=== PATIENT | female | born 1980 | race Caucasian/White ===

== ENCOUNTER 2021-04-06 14:29 | Observation (INO) ==
[2021-04-06] MEDS ORDERED: THIAMINE 200 MG/2 ML VIAL IV STA (15:27)
[2021-04-06 15:50] LABS: Basophils # 0.1 10*3/uL (0.0-0.2); Basophils % 0.8 % (0.0-0.8); Eosinophils % 0.2 % (0.00-10.9); Hematocrit 34.9 VOL% (35.7-47.0); Hemoglobin 11.6 GM/DL (12.0-16.0); Immature Granulocytes % 0.5 %; Immature Granulocytes Absolute 0.05 #; Lymphocytes # 3.4 10*3/uL (1.4-4.0); Lymphocytes % 33.9 % (21.3-54.2); Mean Corpuscular HGB Conc 33.2 GM/DL (32-36); Mean Corpuscular Volume 105.8 FL (87-102); Mean Platelet Volume 10.7 FL (9.6-12.0); Monocytes % 11.4 % (1.7-12.7); Neutrophils % 53.2 % (38.7-73.9); Platelet Count 368 T/CUMM (130-400); Red Cell Distribution Width 16.8 % (9.3-17.3); White Blood Count 9.9 T/CUMM (4-12)
[2021-04-06] MEDS ORDERED: SODIUM CHLORIDE 0.9% 1,000 ML IV STA ×2 (15:50→20:06)
[2021-04-06 16:03] LABS: INR 1.2; Partial Thromboplastin Time 25.5 SECS (23.9-33.8)
[2021-04-06 16:14] LABS: Folate 3.92 NG/ML (5.38-24.0); Vitamin B12 > 2000 PG/ML (211-911)
[2021-04-06 16:18] LABS: Alanine Aminotransferase 76 U/L (13-56); Albumin 1.8 G/DL (3.4-5.0); Alkaline Phosphatase 293 U/L (45-117); Aspartate Amino Transferase 259 U/L (0-37); Blood Urea Nitrogen 7 MG/DL (7-18); Calcium 8.1 MG/DL (8.5-10.1); Carbon Dioxide 27 MMOL/L (21-32); Estimated Glom Filtration Rate 84 ML/MIN; Glucose 98 MG/DL (74-106); Osmolality,Calculated 272.7 MOS/KG (273-304); Potassium 3.3 MMOL/L (3.5-5.1); Sodium 138 MMOL/L (136-145); Total Protein 5.8 G/DL (6.4-8.2)
[2021-04-06 16:22] LABS: Lactic Acid 4.3 MMOL/L (0.4-2.0)
[2021-04-06] MEDS ORDERED: MORPHINE 4 MG/1 ML VIAL IV STA (17:36)
[2021-04-06] MEDS ORDERED: ONDANSETRON 4 MG/2 ML VIAL IV ONE (17:36)
[2021-04-06] MEDS ORDERED: KETOROLAC 30 MG/1 ML VIAL IV STA (19:30)
[2021-04-06] MEDS ORDERED: GLUCAGON 1 MG VIAL IM PRN (20:08)
[2021-04-06] MEDS ORDERED: DEXTROSE 50% 25 GM/50 ML VIAL IV PRN (20:08)
[2021-04-06] MEDS ORDERED: SODIUM CHLORIDE 0.9% 500 ML IV STA (20:14)
[2021-04-06] MEDS ORDERED: MAGNESIUM SULF RIDER 2 GM/50 ML PREMIX IV ONE (20:16)
[2021-04-06] MEDS ORDERED: POTASSIUM CHLORIDE RIDER 10 MEQ in PREMIX 1 EACH IV PRN (20:16)
[2021-04-06] MEDS ORDERED: THIAMINE INJ 100 MG, FOLIC ACID INJ 1 MG, MAGNESIUM SULF INJ 2 GM, MULTIVITAMIN INJ 10 ... IV ONE (20:23)
[2021-04-06 21:36] LABS: Hepatitis B Core IgM Quant 0.09 Index; Hepatitis B Surface Ag Quant < 0.10 Index; Hepatitis B Surface Ag Result Non-Reactive (NonReactive); Hepatitis C Virus Ab Quant 0.12 Index; Hepatitis C Virus Ab Result Non-Reactive (NonReactive)
[2021-04-07 01:28] LABS: Barbiturates Screen,Urine Negative (Negative); Benzodiazepines Screen,Urine Negative (Negative); Cannabinoid Screen,Urine Positive (Negative); Opiate Screen,Urine Negative (Negative); Phencyclidine Screen,Urine Negative (Negative)
[2021-04-07 02:04] LABS: Bilirubin,Urine Negative (Negative); Blood, Urine Negative (Negative); Glucose,Urine (UA) Negative (Negative); Ketones,Urine Negative (Negative); Nitrite,Urine Negative (Negative); Protein,Urine Negative; RBC,Urine 11 /HPF (0-4); Squamous Epithelial Cell,Urine Occasional /HPF (0-10); Urine Appearance CLEAR (Clear); Urine Color Amber (Yellow)
[2021-04-07 02:12] LABS: Urine Specific Gravity > 1.035 (1.001-1.035)
[2021-04-07 04:23] LABS: Basophils # 0.1 10*3/uL (0.0-0.2); Basophils % 1.3 % (0.0-0.8); Eosinophils # 0.1 10*3/uL (0.0-0.87); Eosinophils % 0.9 % (0.00-10.9); Hematocrit 27.6 VOL% (35.7-47.0); Hemoglobin 9.1 GM/DL (12.0-16.0); Immature Granulocytes % 0.3 %; Immature Granulocytes Absolute 0.02 #; Lymphocytes # 2.3 10*3/uL (1.4-4.0); Lymphocytes % 34.1 % (21.3-54.2); Mean Corpuscular Volume 107.4 FL (87-102); Mean Platelet Volume 10.5 FL (9.6-12.0); Monocytes % 9.3 % (1.7-12.7); Neutrophils % 54.1 % (38.7-73.9); Platelet Count 282 T/CUMM (130-400); Red Blood Count 2.57 MC/CUMM (3.8-5.5); Red Cell Distribution Width 16.8 % (9.3-17.3); White Blood Count 6.7 T/CUMM (4-12)
[2021-04-07 04:51] LABS: Albumin 1.4 G/DL (3.4-5.0); Bilirubin,Total 1.3 MG/DL (0.2-1.0); Osmolality,Calculated 275.4 MOS/KG (273-304); Total Protein 4.5 G/DL (6.4-8.2)
[2021-04-07 04:53] LABS: Eosinophils 2 % (0-10); Lymphocytes 27 % (20-55); Segmented Neutrophils 62 % (50-85); Total Cells Counted 100
[2021-04-07 04:54] LABS: Hypochromasia 1+; Polychromasia Slight
[2021-04-07 04:56] LABS: Stomatocytes Slight
[2021-04-07 04:57] LABS: Microcytosis 1+; Platelet Estimate Normal
[2021-04-07] MEDS ORDERED: POTASSIUM CHLORIDE 20 MEQ PACK ONE (07:06)
[2021-04-07] MEDS ORDERED: POTASSIUM CHLORIDE INJ 50 MEQ in SODIUM CHLORIDE 0.9% 500 ML IV ONE (10:00)
[2021-04-07] MEDS: ENOXAPARIN 40 MG/0.4 ML SYRINGE SUBCUT SCH (10:24)
[2021-04-07] MEDS: FOLIC ACID INJ 1 MG in SYRINGE 1 EACH IV SCH (10:24)
[2021-04-07] MEDS: PANTOPRAZOLE 40 MG TABLET PO SCH (10:25)
[2021-04-07] MEDS: SODIUM CHLORIDE 0.9% 1,000 ML IV SCH ×2 (10:25)
[2021-04-07] MEDS ORDERED: POTASSIUM CHLORIDE 20 MEQ/15 ML UDCUP PO ONE (11:00)
[2021-04-07] MEDS: traMADol 50 MG TABLET PO PRN (12:18)
[2021-04-07] MEDS: THIAMINE 100 MG TABLET PO SCH (16:47)
[2021-04-07] MEDS ORDERED: LORazepam 1 MG TABLET PO ONE (16:58)
[2021-04-08] MEDS: SODIUM CHLORIDE 0.9% 1,000 ML IV SCH ×3 (00:56→15:13)
[2021-04-08] MEDS: traMADol 50 MG TABLET PO PRN ×3 (05:17→21:02)
[2021-04-08 06:02] LABS: Basophils # 0.1 10*3/uL (0.0-0.2); Basophils % 1.8 % (0.0-0.8); Eosinophils # 0.1 10*3/uL (0.0-0.87); Eosinophils % 1.8 % (0.00-10.9); Hematocrit 29.9 VOL% (35.7-47.0); Hemoglobin 9.4 GM/DL (12.0-16.0); Immature Granulocytes % 0.6 %; Immature Granulocytes Absolute 0.03 #; Mean Corpuscular HGB Conc 31.4 GM/DL (32-36); Mean Corpuscular Volume 112.4 FL (87-102); Mean Platelet Volume 10.8 FL (9.6-12.0); Monocytes % 10.1 % (1.7-12.7); NRBC # 0.02 10*3/uL; Neutrophils % 46.7 % (38.7-73.9); Platelet Count 296 T/CUMM (130-400); Red Blood Count 2.66 MC/CUMM (3.8-5.5); White Blood Count 5.1 T/CUMM (4-12)
[2021-04-08 06:26] LABS: Eosinophils 2 % (0-10); Hypochromasia 1+; Lymphocytes 38 % (20-55); Microcytosis 1+; Platelet Estimate Adequate; Segmented Neutrophils 53 % (50-85); Total Cells Counted 100
[2021-04-08 06:38] LABS: Alanine Aminotransferase 66 U/L (13-56); Albumin 1.2 G/DL (3.4-5.0); Alkaline Phosphatase 234 U/L (45-117); Aspartate Amino Transferase 217 U/L (0-37); Blood Urea Nitrogen 5 MG/DL (7-18); Calcium 7.1 MG/DL (8.5-10.1); Carbon Dioxide 24 MMOL/L (21-32); Estimated Glom Filtration Rate 140 ML/MIN; Glucose 62 MG/DL (74-106); HDL Cholesterol < 10 MG/DL (40-60); Osmolality,Calculated 277.1 MOS/KG (273-304); Potassium 3.9 MMOL/L (3.5-5.1); Sodium 142 MMOL/L (136-145); Total Protein 4.6 G/DL (6.4-8.2); Triglycerides 124 MG/DL (2-150); VLDL CHOLESTEROL 24.8 MG/DL
[2021-04-08 06:42] LABS: Troponin I < 0.015 NG/ML (0.00-0.045)
[2021-04-08] MEDS: FOLIC ACID INJ 1 MG in SYRINGE 1 EACH IV SCH (09:25)
[2021-04-08] MEDS: MULTIVITAMIN (BEROCCA) TABLET PO SCH (09:25)
[2021-04-08] MEDS: THIAMINE 100 MG TABLET PO SCH (09:25)
[2021-04-08] MEDS: PANTOPRAZOLE 40 MG TABLET PO SCH (09:25)
[2021-04-08] MEDS: ENOXAPARIN 40 MG/0.4 ML SYRINGE SUBCUT SCH (09:25)
[2021-04-08] MEDS: ONDANSETRON 4 MG/2 ML VIAL IV PRN (17:42)
[2021-04-09] MEDS: LORazepam 2 MG/1 ML VIAL IV PRN (02:09)
[2021-04-09 08:06] LABS: Alanine Aminotransferase 64 U/L (13-56); Albumin 1.3 G/DL (3.4-5.0); Alkaline Phosphatase 231 U/L (45-117); Aspartate Amino Transferase 191 U/L (0-37); Blood Urea Nitrogen 4 MG/DL (7-18); Calcium 7.5 MG/DL (8.5-10.1); Carbon Dioxide 24 MMOL/L (21-32); Estimated Glom Filtration Rate 154 ML/MIN; Glucose 54 MG/DL (74-106); Osmolality,Calculated 273.4 MOS/KG (273-304); Potassium 3.8 MMOL/L (3.5-5.1); Sodium 140 MMOL/L (136-145); Total Protein 4.5 G/DL (6.4-8.2)
[2021-04-09] MEDS: FOLIC ACID 1 MG TABLET PO SCH (09:27)
[2021-04-09] MEDS: MULTIVITAMIN (BEROCCA) TABLET PO SCH (09:27)
[2021-04-09] MEDS: THIAMINE 100 MG TABLET PO SCH (09:27)
[2021-04-09] MEDS: PANTOPRAZOLE 40 MG TABLET PO SCH (09:28)
[2021-04-09] MEDS: SODIUM CHLORIDE 0.9% 1,000 ML IV SCH ×4 (09:30→22:37)
[2021-04-09] MEDS: ENOXAPARIN 40 MG/0.4 ML SYRINGE SUBCUT SCH (10:45)
[2021-04-09] MEDS: traMADol 50 MG TABLET PO PRN ×2 (11:34→20:12)
[2021-04-09] MEDS: ONDANSETRON 4 MG/2 ML VIAL IV PRN ×2 (13:42→18:19)
[2021-04-10 05:41] LABS: Alanine Aminotransferase 61 U/L (13-56); Albumin 1.3 G/DL (3.4-5.0); Alkaline Phosphatase 240 U/L (45-117); Aspartate Amino Transferase 161 U/L (0-37); Blood Urea Nitrogen 4 MG/DL (7-18); Calcium 7.5 MG/DL (8.5-10.1); Carbon Dioxide 25 MMOL/L (21-32); Estimated Glom Filtration Rate 154 ML/MIN; Glucose 60 MG/DL (74-106); Osmolality,Calculated 277.1 MOS/KG (273-304); Potassium 4.3 MMOL/L (3.5-5.1); Sodium 142 MMOL/L (136-145); Total Protein 4.6 G/DL (6.4-8.2)
[2021-04-10] MEDS: SODIUM CHLORIDE 0.9% 1,000 ML IV SCH ×3 (06:00→20:22)
[2021-04-10] MEDS: FOLIC ACID 1 MG TABLET PO SCH (08:21)
[2021-04-10] MEDS: MULTIVITAMIN (BEROCCA) TABLET PO SCH (08:21)
[2021-04-10] MEDS: THIAMINE 100 MG TABLET PO SCH (08:21)
[2021-04-10] MEDS: PANTOPRAZOLE 40 MG TABLET PO SCH (08:21)
[2021-04-10] MEDS: traMADol 50 MG TABLET PO PRN ×2 (08:22→20:56)
[2021-04-10] MEDS: ENOXAPARIN 40 MG/0.4 ML SYRINGE SUBCUT SCH (08:22)
[2021-04-10] MEDS: LORazepam 2 MG/1 ML VIAL IV PRN ×2 (10:53→20:22)
[2021-04-10] MEDS: ONDANSETRON 4 MG/2 ML VIAL IV PRN (17:49)
[2021-04-11] MEDS: SODIUM CHLORIDE 0.9% 1,000 ML IV SCH ×2 (04:22→16:07)
[2021-04-11 06:00] LABS: Alanine Aminotransferase 60 U/L (13-56); Albumin 1.3 G/DL (3.4-5.0); Alkaline Phosphatase 235 U/L (45-117); Aspartate Amino Transferase 133 U/L (0-37); Blood Urea Nitrogen 3 MG/DL (7-18); Calcium 7.9 MG/DL (8.5-10.1); Carbon Dioxide 26 MMOL/L (21-32); Estimated Glom Filtration Rate 151 ML/MIN; Glucose 63 MG/DL (74-106); Osmolality,Calculated 275.3 MOS/KG (273-304); Potassium 4.5 MMOL/L (3.5-5.1); Sodium 141 MMOL/L (136-145); Total Protein 4.9 G/DL (6.4-8.2)
[2021-04-11] MEDS: PANTOPRAZOLE 40 MG TABLET PO SCH (08:21)
[2021-04-11] MEDS: THIAMINE 100 MG TABLET PO SCH (08:21)
[2021-04-11] MEDS: FOLIC ACID 1 MG TABLET PO SCH (08:21)
[2021-04-11] MEDS: ENOXAPARIN 40 MG/0.4 ML SYRINGE SUBCUT SCH (08:21)
[2021-04-11] MEDS: traMADol 50 MG TABLET PO PRN ×2 (08:22→14:41)
[2021-04-11] MEDS ORDERED: MAGNESIUM SULF RIDER 2 GM/50 ML PREMIX IV ONE (09:00)
[2021-04-11] MEDS: MULTIVITAMIN (BEROCCA) TABLET PO SCH (09:12)
[2021-04-11] MEDS ORDERED: CALCIUM GLUCONATE 1,000 MG in SODIUM CHLORIDE 0.9% 100 ML IV ONE (11:00)
[2021-04-11] MEDS: LORazepam 2 MG/1 ML VIAL IV PRN (15:18)
[2021-04-12 01:06] VITALS: BP 136/84
== END 2021-04-11 22:13 | disposition home or self-care (01) ==
LOC: N.EDINP 14:29 → N.ED 14:29 → SUATTDRO 20:08 → N.5E 04-07 08:08
PROVIDERS: ADMIT Internal Medicine; ATTEND Internal Medicine

== ENCOUNTER 2021-04-23 22:04 | Inpatient (IN) ==
[2021-04-23] MEDS ORDERED: ONDANSETRON 4 MG/2 ML VIAL IV STA (23:36)
[2021-04-23] MEDS ORDERED: PANTOPRAZOLE 40 MG VIAL IV STA (23:36)
[2021-04-23] MEDS ORDERED: HYDROmorphone 2 MG/1 ML VIAL IV STA (23:36)
[2021-04-23 23:48] LABS: Basophils # 0.1 10*3/uL (0.0-0.2); Basophils % 1.1 % (0.0-0.8); Eosinophils # 0.1 10*3/uL (0.0-0.87); Eosinophils % 0.9 % (0.00-10.9); Hematocrit 41.1 VOL% (35.7-47.0); Hemoglobin 13.5 GM/DL (12.0-16.0); Immature Granulocytes % 0.6 %; Immature Granulocytes Absolute 0.05 #; Lymphocytes # 2.7 10*3/uL (1.4-4.0); Lymphocytes % 33.7 % (21.3-54.2); Mean Corpuscular HGB Conc 32.8 GM/DL (32-36); Mean Corpuscular Volume 103.3 FL (87-102); Neutrophils % 51.7 % (38.7-73.9); Platelet Count 308 T/CUMM (130-400); Red Blood Count 3.98 MC/CUMM (3.8-5.5); Red Cell Distribution Width 14.9 % (9.3-17.3)
[2021-04-24 00:31] LABS: Alanine Aminotransferase 70 U/L (13-56); Albumin 1.6 G/DL (3.4-5.0); Alkaline Phosphatase 302 U/L (45-117); Amylase 15 U/L (25-115); Aspartate Amino Transferase 107 U/L (0-37); Blood Urea Nitrogen 4 MG/DL (7-18); Calcium 7.7 MG/DL (8.5-10.1); Carbon Dioxide 19 MMOL/L (21-32); Estimated Glom Filtration Rate 155 ML/MIN; Glucose 95 MG/DL (74-106); Osmolality,Calculated 275.4 MOS/KG (273-304); Potassium 3.3 MMOL/L (3.5-5.1); Sodium 140 MMOL/L (136-145); Total Protein 6.1 G/DL (6.4-8.2)
[2021-04-24] MEDS ORDERED: POTASSIUM CHLORIDE 20 MEQ TABLET PO STA (00:42)
[2021-04-24 00:43] LABS: Barbiturates Screen,Urine Negative (Negative); Benzodiazepines Screen,Urine Negative (Negative); Cannabinoid Screen,Urine Positive (Negative); Opiate Screen,Urine Negative (Negative); Phencyclidine Screen,Urine Negative (Negative)
[2021-04-24] MEDS ORDERED: THIAMINE INJ 100 MG, FOLIC ACID INJ 1 MG, MAGNESIUM SULF INJ 2 GM, MULTIVITAMIN INJ 10 ... IV ONE (00:43)
[2021-04-24 00:50] LABS: Bilirubin,Urine Negative (Negative); Blood, Urine Negative (Negative); Glucose,Urine (UA) Negative (Negative); Hyaline Casts,Urine 22 /LPF (0-3); Ketones,Urine Negative (Negative); Mucus,Urine Many /LPF (Occasional); Nitrite,Urine Negative (Negative); Protein,Urine Negative; Squamous Epithelial Cell,Urine Occasional /HPF (0-10); Urine Appearance Slightly Hazy (Clear); Urine Color Amber (Yellow); Urine Specific Gravity 1.019 (1.001-1.035)
[2021-04-24] MEDS ORDERED: cefTRIAXone 1,000 MG in SODIUM CHLORIDE 0.9% 100 ML IV STA (00:54)
[2021-04-24 00:59] LABS: Lactic Acid 4.7 MMOL/L (0.4-2.0)
[2021-04-24] MEDS ORDERED: SODIUM CHLORIDE 0.9% 1,000 ML IV STA (01:13)
[2021-04-24] MEDS ORDERED: PIPERACILLIN/TAZOBACTAM 3,375 MG in SODIUM CHLORIDE 0.9% 100 ML IV STA (01:13)
[2021-04-24] MEDS ORDERED: diphenhydrAMINE 50 MG/1 ML VIAL IV STA (01:40)
[2021-04-24] MEDS ORDERED: diphenhydrAMINE 50 MG/1 ML VIAL ONE (01:44)
[2021-04-24] MEDS ORDERED: hydrALAZINE 20 MG/1 ML VIAL IV PRN (04:14)
[2021-04-24] MEDS ORDERED: DEXTROSE 50% 25 GM/50 ML VIAL IV PRN (04:14)
[2021-04-24] MEDS ORDERED: NICOTINE 21 MG/24 HR PATCH TRANSDERM PRN (04:14)
[2021-04-24] MEDS ORDERED: GLUCAGON 1 MG VIAL IM PRN (04:14)
[2021-04-24 04:18] LABS: Basophils # 0.1 10*3/uL (0.0-0.2); Basophils % 0.9 % (0.0-0.8); Eosinophils # 0.1 10*3/uL (0.0-0.87); Hematocrit 33.6 VOL% (35.7-47.0); Hemoglobin 10.8 GM/DL (12.0-16.0); Immature Granulocytes % 0.6 %; Immature Granulocytes Absolute 0.06 #; Lymphocytes # 2.3 10*3/uL (1.4-4.0); Lymphocytes % 22.9 % (21.3-54.2); Mean Corpuscular HGB Conc 32.1 GM/DL (32-36); Mean Platelet Volume 10.7 FL (9.6-12.0); Monocytes % 9.8 % (1.7-12.7); Neutrophils % 64.8 % (38.7-73.9); Platelet Count 318 T/CUMM (130-400); Red Blood Count 3.17 MC/CUMM (3.8-5.5); Red Cell Distribution Width 14.9 % (9.3-17.3)
[2021-04-24 04:38] LABS: Albumin 1.3 G/DL (3.4-5.0); Bilirubin,Total 0.8 MG/DL (0.2-1.0); Osmolality,Calculated 279.1 MOS/KG (273-304); Potassium 2.6 MMOL/L (3.5-5.1); Total Protein 5.2 G/DL (6.4-8.2)
[2021-04-24 04:46] LABS: Platelet Estimate Adequate
[2021-04-24] MEDS ORDERED: POTASSIUM CHLORIDE RIDER 20 MEQ/100 ML PREMIX IV STA (04:57)
[2021-04-24] MEDS ORDERED: FUROSEMIDE 40 MG/4 ML VIAL IV STA (04:58)
[2021-04-24] MEDS ORDERED: ENOXAPARIN 100 MG/ML SYRINGE SUBCUT STA (05:01)
[2021-04-24] MEDS ORDERED: ENOXAPARIN 40 MG/0.4 ML SYRINGE SUBCUT STA (05:10)
[2021-04-24] MEDS: POTASSIUM CHLORIDE RIDER 10 MEQ/100 ML PREMIX IV SCH ×7 (05:50→14:08)
[2021-04-24 08:55] LABS: INR 1.1; PT Patient Result 12.6 SECS (10.5-12.0)
[2021-04-24] MEDS: cefTRIAXone 1,000 MG in SODIUM CHLORIDE 0.9% 100 ML IV SCH (09:06)
[2021-04-24 10:21] LABS: Hepatitis B Core IgM Quant 0.08 Index; Hepatitis B Surface Ag Quant < 0.10 Index; Hepatitis B Surface Ag Result Non-Reactive (NonReactive); Hepatitis C Virus Ab Quant 0.15 Index; Hepatitis C Virus Ab Result Non-Reactive (NonReactive)
[2021-04-24] MEDS: chlordiazePOXIDE 25 MG CAPSULE PO PRN ×3 (10:21→21:12)
[2021-04-24] MEDS: ONDANSETRON 4 MG/2 ML VIAL IV PRN (17:52)
[2021-04-25] MEDS: chlordiazePOXIDE 25 MG CAPSULE PO PRN ×2 (02:02→18:12)
[2021-04-25] MEDS: cefTRIAXone 1,000 MG in SODIUM CHLORIDE 0.9% 100 ML IV SCH (06:51)
[2021-04-25 12:55] LABS: LDH,Peritoneal Fluid 56 U/L; Total Protein,Peritoneal Fluid < 1.0 G/DL
[2021-04-25 13:05] LABS: Neutrophils,Peritoneal Fluid 27 %; RBC,Peritoneal Fluid 74 T/CUMM
[2021-04-25] MEDS ORDERED: ENOXAPARIN 40 MG/0.4 ML SYRINGE SUBCUT SCH (14:00)
[2021-04-25] MEDS: ENOXAPARIN 80 MG/0.8 ML SYRINGE SUBCUT SCH (15:36)
[2021-04-25] MEDS: PANTOPRAZOLE 40 MG TABLET PO SCH (15:36)
[2021-04-25] MEDS: AZITHROMYCIN INJ 250 MG in SODIUM CHLORIDE 0.9% 250 ML IV SCH (18:13)
[2021-04-26] MEDS: ENOXAPARIN 80 MG/0.8 ML SYRINGE SUBCUT SCH ×2 (05:30→18:22)
[2021-04-26 05:52] LABS: Basophils # 0.1 10*3/uL (0.0-0.2); Basophils % 1.2 % (0.0-0.8); Eosinophils # 0.1 10*3/uL (0.0-0.87); Hematocrit 32.9 VOL% (35.7-47.0); Hemoglobin 10.4 GM/DL (12.0-16.0); Immature Granulocytes % 0.3 %; Immature Granulocytes Absolute 0.02 #; Lymphocytes # 1.8 10*3/uL (1.4-4.0); Lymphocytes % 26.9 % (21.3-54.2); Mean Corpuscular HGB Conc 31.6 GM/DL (32-36); Mean Corpuscular Volume 106.8 FL (87-102); Mean Platelet Volume 10.6 FL (9.6-12.0); Monocytes % 11.2 % (1.7-12.7); Neutrophils % 59.4 % (38.7-73.9); Platelet Count 290 T/CUMM (130-400); Red Blood Count 3.08 MC/CUMM (3.8-5.5); White Blood Count 6.8 T/CUMM (4-12)
[2021-04-26 06:01] LABS: INR 1.1; PT Patient Result 12.5 SECS (10.5-12.0)
[2021-04-26 06:17] LABS: Albumin 1.2 G/DL (3.4-5.0); Bilirubin,Total 1.4 MG/DL (0.2-1.0); Calcium 7.7 MG/DL (8.5-10.1); Osmolality,Calculated 273.4 MOS/KG (273-304); Potassium 3.4 MMOL/L (3.5-5.1); Total Protein 4.9 G/DL (6.4-8.2)
[2021-04-26 06:17] LABS: Hypochromasia 1+; Microcytosis 1+; Platelet Estimate Adequate
[2021-04-26] MEDS: PANTOPRAZOLE 40 MG TABLET PO SCH (09:59)
[2021-04-26] MEDS: ONDANSETRON 4 MG/2 ML VIAL IV PRN (10:00)
[2021-04-26] MEDS: cefTRIAXone 1,000 MG in SODIUM CHLORIDE 0.9% 100 ML IV SCH (10:12)
[2021-04-26] MEDS: chlordiazePOXIDE 25 MG CAPSULE PO PRN (11:34)
[2021-04-26] MEDS: AZITHROMYCIN INJ 250 MG in SODIUM CHLORIDE 0.9% 250 ML IV SCH (17:33)
[2021-04-27 06:50] LABS: Basophils # 0.1 10*3/uL (0.0-0.2); Basophils % 1.1 % (0.0-0.8); Eosinophils # 0.1 10*3/uL (0.0-0.87); Eosinophils % 0.8 % (0.00-10.9); Hematocrit 31.7 VOL% (35.7-47.0); Hemoglobin 10.2 GM/DL (12.0-16.0); Immature Granulocytes % 0.2 %; Immature Granulocytes Absolute 0.01 #; Lymphocytes # 1.3 10*3/uL (1.4-4.0); Lymphocytes % 20.3 % (21.3-54.2); Mean Corpuscular HGB Conc 32.2 GM/DL (32-36); Mean Platelet Volume 11.3 FL (9.6-12.0); Monocytes % 11.7 % (1.7-12.7); Neutrophils % 65.9 % (38.7-73.9); Platelet Count 261 T/CUMM (130-400); Red Blood Count 3.02 MC/CUMM (3.8-5.5); Red Cell Distribution Width 14.9 % (9.3-17.3); White Blood Count 6.6 T/CUMM (4-12)
[2021-04-27 07:14] LABS: Albumin 1.2 G/DL (3.4-5.0); Bilirubin,Total 0.9 MG/DL (0.2-1.0); Calcium 7.6 MG/DL (8.5-10.1); Osmolality,Calculated 275.3 MOS/KG (273-304); Potassium 3.4 MMOL/L (3.5-5.1); Total Protein 4.9 G/DL (6.4-8.2)
[2021-04-27] MEDS: ENOXAPARIN 80 MG/0.8 ML SYRINGE SUBCUT SCH ×2 (07:32→17:00)
[2021-04-27] MEDS: chlordiazePOXIDE 25 MG CAPSULE PO PRN ×3 (09:28→20:53)
[2021-04-27] MEDS: PANTOPRAZOLE 40 MG TABLET PO SCH (09:28)
[2021-04-27] MEDS: ONDANSETRON 4 MG/2 ML VIAL IV PRN (09:28)
[2021-04-27] MEDS: cefTRIAXone 1,000 MG in SODIUM CHLORIDE 0.9% 100 ML IV SCH (09:29)
[2021-04-27] MEDS: POTASSIUM CHLORIDE 20 MEQ TABLET PO PRN ×2 (09:29→11:30)
[2021-04-27] MEDS: FUROSEMIDE 20 MG TABLET PO SCH (11:30)
[2021-04-27] MEDS: SPIRONOLACTONE 50 MG TABLET PO SCH (11:30)
[2021-04-27] MEDS: AZITHROMYCIN INJ 250 MG in SODIUM CHLORIDE 0.9% 250 ML IV SCH (16:55)
[2021-04-28] MEDS: chlordiazePOXIDE 25 MG CAPSULE PO PRN (03:50)
[2021-04-28] MEDS: ENOXAPARIN 80 MG/0.8 ML SYRINGE SUBCUT SCH (06:24)
[2021-04-28 07:16] LABS: Basophils # 0.1 10*3/uL (0.0-0.2); Basophils % 1.2 % (0.0-0.8); Eosinophils # 0.1 10*3/uL (0.0-0.87); Eosinophils % 1.5 % (0.00-10.9); Hemoglobin 10.4 GM/DL (12.0-16.0); Immature Granulocytes % 0.4 %; Immature Granulocytes Absolute 0.03 #; Lymphocytes # 1.8 10*3/uL (1.4-4.0); Lymphocytes % 24.1 % (21.3-54.2); Mean Corpuscular HGB Conc 31.5 GM/DL (32-36); Mean Corpuscular Volume 106.8 FL (87-102); Mean Platelet Volume 11.4 FL (9.6-12.0); Monocytes % 10.9 % (1.7-12.7); Neutrophils % 61.9 % (38.7-73.9); Platelet Count 338 T/CUMM (130-400); Red Blood Count 3.09 MC/CUMM (3.8-5.5); White Blood Count 7.4 T/CUMM (4-12)
[2021-04-28 07:37] LABS: Albumin 1.3 G/DL (3.4-5.0); Bilirubin,Total 1.2 MG/DL (0.2-1.0); Calcium 8.1 MG/DL (8.5-10.1); Osmolality,Calculated 274.3 MOS/KG (273-304); Potassium 3.4 MMOL/L (3.5-5.1); Total Protein 5.2 G/DL (6.4-8.2)
[2021-04-28] MEDS: cefTRIAXone 1,000 MG in SODIUM CHLORIDE 0.9% 100 ML IV SCH (09:43)
[2021-04-28] MEDS: PANTOPRAZOLE 40 MG TABLET PO SCH (09:46)
[2021-04-28] MEDS: FUROSEMIDE 20 MG TABLET PO SCH (09:46)
[2021-04-28] MEDS: SPIRONOLACTONE 50 MG TABLET PO SCH (09:46)
[2021-04-28 12:18] VITALS: BP 120/72
== END 2021-04-28 13:21 | disposition home or self-care (01) | DRG 432 ==
LOC: N.ED 22:04 → N.EDINP 04-24 06:04 → N.3E 04-24 07:20
PROVIDERS: ADMIT Internal Medicine; ATTEND Internal Medicine

== ENCOUNTER 2021-04-29 18:05 | Inpatient (IN) ==
[2021-04-29] MEDS ORDERED: SODIUM CHLORIDE 0.9% 1,000 ML IV STA (20:58)
[2021-04-29 22:29] LABS: Basophils # 0.1 10*3/uL (0.0-0.2); Basophils % 0.4 % (0.0-0.8); Eosinophils % 0.2 % (0.00-10.9); Hematocrit 35.3 VOL% (35.7-47.0); Hemoglobin 11.1 GM/DL (12.0-16.0); Immature Granulocytes % 0.4 %; Immature Granulocytes Absolute 0.05 #; Lymphocytes # 1.9 10*3/uL (1.4-4.0); Lymphocytes % 15.2 % (21.3-54.2); Mean Corpuscular HGB Conc 31.4 GM/DL (32-36); Mean Corpuscular Volume 104.7 FL (87-102); Mean Platelet Volume 10.6 FL (9.6-12.0); Monocytes % 9.1 % (1.7-12.7); Neutrophils % 74.7 % (38.7-73.9); Platelet Count 361 T/CUMM (130-400); Red Blood Count 3.37 MC/CUMM (3.8-5.5); Red Cell Distribution Width 14.8 % (9.3-17.3); White Blood Count 12.4 T/CUMM (4-12)
[2021-04-29 22:40] LABS: INR 1.2; PT Patient Result 12.9 SECS (10.5-12.0); Partial Thromboplastin Time 27.4 SECS (23.9-33.8)
[2021-04-29 22:55] LABS: Alanine Aminotransferase 72 U/L (13-56); Albumin 1.3 G/DL (3.4-5.0); Alkaline Phosphatase 304 U/L (45-117); Amylase 9 U/L (25-115); Aspartate Amino Transferase 153 U/L (0-37); Blood Urea Nitrogen 3 MG/DL (7-18); Carbon Dioxide 28 MMOL/L (21-32); Estimated Glom Filtration Rate 141 ML/MIN; Glucose 74 MG/DL (74-106); Osmolality,Calculated 278.1 MOS/KG (273-304); Potassium 3.4 MMOL/L (3.5-5.1); Sodium 142 MMOL/L (136-145); Total Protein 5.6 G/DL (6.4-8.2)
[2021-04-30 00:58] LABS: Bilirubin,Urine Negative (Negative); Blood, Urine Negative (Negative); Glucose,Urine (UA) Negative (Negative); Ketones,Urine 5 mg/dL (Negative); Mucus,Urine Occasional /LPF (Occasional); Nitrite,Urine Negative (Negative); Protein,Urine 30 MG/DL; RBC,Urine 5 /HPF (0-4); Squamous Epithelial Cell,Urine Occasional /HPF (0-10); Urine Appearance CLEAR (Clear); Urine Color Amber (Yellow); Urine Specific Gravity 1.026 (1.001-1.035); Urine Urobilinogen < 2.0 EU/DL (0.2-1.0)
[2021-04-30 01:02] LABS: Barbiturates Screen,Urine Negative (Negative); Benzodiazepines Screen,Urine Positive (Negative); Cannabinoid Screen,Urine Positive (Negative); Opiate Screen,Urine Negative (Negative); Phencyclidine Screen,Urine Negative (Negative)
[2021-04-30] MEDS ORDERED: cefTRIAXone 1,000 MG in SODIUM CHLORIDE 0.9% 100 ML IV STA (03:05)
[2021-04-30] MEDS ORDERED: SODIUM CHLORIDE 0.9% 1,000 ML IV STA (03:06)
[2021-04-30] MEDS ORDERED: GLUCAGON 1 MG VIAL IM PRN (05:18)
[2021-04-30] MEDS ORDERED: DEXTROSE 50% 25 GM/50 ML VIAL IV PRN (05:18)
[2021-04-30] MEDS ORDERED: DOCUSATE SODIUM 100 MG CAPSULE PO PRN (05:19)
[2021-04-30] MEDS ORDERED: CEFDINIR 300 MG CAPSULE PO SCH (05:30)
[2021-04-30] MEDS ORDERED: AZITHROMYCIN INJ 500 MG in SODIUM CHLORIDE 0.9% 250 ML IV SCH (05:30)
[2021-04-30] MEDS ORDERED: MAGNESIUM SULF RIDER 4 GM/100 ML PREMIX IV PRN (05:44)
[2021-04-30] MEDS: LEVOFLOXACIN INJ 750 MG/150 ML PREMIX IV SCH (06:30)
[2021-04-30 06:34] LABS: Basophils # 0.1 10*3/uL (0.0-0.2); Basophils % 1.2 % (0.0-0.8); Eosinophils # 0.1 10*3/uL (0.0-0.87); Eosinophils % 1.1 % (0.00-10.9); Hematocrit 36.7 VOL% (35.7-47.0); Hemoglobin 11.7 GM/DL (12.0-16.0); Immature Granulocytes % 0.4 %; Immature Granulocytes Absolute 0.03 #; Lymphocytes # 1.7 10*3/uL (1.4-4.0); Lymphocytes % 21.3 % (21.3-54.2); Mean Corpuscular HGB Conc 31.9 GM/DL (32-36); Mean Corpuscular Volume 102.8 FL (87-102); Mean Platelet Volume 10.8 FL (9.6-12.0); Monocytes % 8.2 % (1.7-12.7); Neutrophils % 67.8 % (38.7-73.9); Platelet Count 374 T/CUMM (130-400); Red Blood Count 3.57 MC/CUMM (3.8-5.5); White Blood Count 8.2 T/CUMM (4-12)
[2021-04-30 06:58] LABS: Folate 11.04 NG/ML (5.38-24.0); Vitamin B12 > 2000 PG/ML (211-911)
[2021-04-30 07:32] LABS: Sedimentation Rate-Westergren 63 MM/HR (0-20)
[2021-04-30] MEDS: THIAMINE 100 MG TABLET PO SCH (08:11)
[2021-04-30] MEDS: APIXABAN 5 MG TABLET PO SCH ×2 (08:11→20:46)
[2021-04-30] MEDS: PANTOPRAZOLE 40 MG TABLET PO SCH (08:11)
[2021-04-30] MEDS: FOLIC ACID 1 MG TABLET PO SCH (08:11)
[2021-04-30] MEDS: SPIRONOLACTONE 50 MG TABLET PO SCH (08:11)
[2021-04-30] MEDS: FUROSEMIDE 20 MG TABLET PO SCH (08:11)
[2021-04-30] MEDS: MULTIVITAMIN (CENTRUM) TABLET PO SCH (08:11)
[2021-04-30] MEDS: POTASSIUM CHLORIDE 20 MEQ TABLET PO PRN ×3 (08:12→17:34)
[2021-04-30] MEDS: ONDANSETRON 4 MG/2 ML VIAL IV PRN (08:36)
[2021-04-30] MEDS ORDERED: AZITHROMYCIN 250 MG TABLET PO SCH (09:00)
[2021-04-30 10:03] LABS: Hemoglobin A1 (Alkaline) 96.8 % (96.5-98.5); Hemoglobin A2 (Alkaline) 3.2 % (1.5-3.5)
[2021-04-30] MEDS: traMADol 50 MG TABLET PO PRN ×2 (13:54→21:10)
[2021-05-01] MEDS ORDERED: cefTRIAXone 1,000 MG in SODIUM CHLORIDE 0.9% 100 ML IV SCH (03:00)
[2021-05-01 04:17] LABS: Basophils # 0.1 10*3/uL (0.0-0.2); Basophils % 1.2 % (0.0-0.8); Eosinophils # 0.2 10*3/uL (0.0-0.87); Eosinophils % 2.3 % (0.00-10.9); Hematocrit 31.7 VOL% (35.7-47.0); Hemoglobin 10.2 GM/DL (12.0-16.0); Immature Granulocytes % 0.5 %; Immature Granulocytes Absolute 0.03 #; Lymphocytes # 2.1 10*3/uL (1.4-4.0); Lymphocytes % 31.9 % (21.3-54.2); Mean Corpuscular HGB Conc 32.2 GM/DL (32-36); Mean Corpuscular Volume 102.6 FL (87-102); Mean Platelet Volume 10.5 FL (9.6-12.0); Monocytes % 12.3 % (1.7-12.7); Neutrophils % 51.8 % (38.7-73.9); Platelet Count 320 T/CUMM (130-400); Red Blood Count 3.09 MC/CUMM (3.8-5.5); Red Cell Distribution Width 15.1 % (9.3-17.3); White Blood Count 6.6 T/CUMM (4-12)
[2021-05-01 04:32] LABS: Bilirubin,Total 1.2 MG/DL (0.2-1.0); Calcium 7.6 MG/DL (8.5-10.1); Osmolality,Calculated 276.1 MOS/KG (273-304); Potassium 4.1 MMOL/L (3.5-5.1); Total Protein 4.9 G/DL (6.4-8.2)
[2021-05-01 04:40] LABS: Free T4 (Free Thyroxine) 1.22 NG/DL (0.76-1.46); Thyroid Stimulating Hormone 16.2 uIU/ml (0.358-3.74)
[2021-05-01 04:59] LABS: Hypochromasia 1+
[2021-05-01 05:00] LABS: Macrocytosis Slight; Platelet Estimate Normal; Polychromasia Slight; Target Cells Slight
[2021-05-01] MEDS: LEVOFLOXACIN INJ 750 MG/150 ML PREMIX IV SCH (05:44)
[2021-05-01] MEDS: ONDANSETRON 4 MG/2 ML VIAL IV PRN (08:32)
[2021-05-01] MEDS: PANTOPRAZOLE 40 MG TABLET PO SCH (09:10)
[2021-05-01] MEDS: FOLIC ACID 1 MG TABLET PO SCH (09:10)
[2021-05-01] MEDS: SPIRONOLACTONE 50 MG TABLET PO SCH (09:10)
[2021-05-01] MEDS: THIAMINE 100 MG TABLET PO SCH (09:10)
[2021-05-01] MEDS: MULTIVITAMIN (CENTRUM) TABLET PO SCH (09:10)
[2021-05-01] MEDS: APIXABAN 5 MG TABLET PO SCH ×2 (09:10→20:48)
[2021-05-01] MEDS: FUROSEMIDE 20 MG TABLET PO SCH (09:10)
[2021-05-01] MEDS ORDERED: TUBERCULIN SKIN TEST 0.1 ML SYRINGE INTRADERM ONE (12:16)
[2021-05-01] MEDS: traMADol 50 MG TABLET PO PRN (15:53)
[2021-05-02] MEDS: traMADol 50 MG TABLET PO PRN ×3 (01:36→20:22)
[2021-05-02 05:25] LABS: Basophils # 0.1 10*3/uL (0.0-0.2); Basophils % 1.5 % (0.0-0.8); Eosinophils # 0.1 10*3/uL (0.0-0.87); Eosinophils % 2.2 % (0.00-10.9); Hematocrit 30.8 VOL% (35.7-47.0); Hemoglobin 9.8 GM/DL (12.0-16.0); Immature Granulocytes % 0.4 %; Immature Granulocytes Absolute 0.02 #; Lymphocytes # 1.7 10*3/uL (1.4-4.0); Lymphocytes % 31.1 % (21.3-54.2); Mean Corpuscular HGB Conc 31.8 GM/DL (32-36); Mean Corpuscular Volume 102.7 FL (87-102); Mean Platelet Volume 10.9 FL (9.6-12.0); Monocytes % 13.3 % (1.7-12.7); Neutrophils % 51.5 % (38.7-73.9); Platelet Count 295 T/CUMM (130-400); White Blood Count 5.4 T/CUMM (4-12)
[2021-05-02] MEDS: LEVOFLOXACIN INJ 750 MG/150 ML PREMIX IV SCH (05:41)
[2021-05-02 05:43] LABS: Albumin 0.9 G/DL (3.4-5.0); Bilirubin,Total 1.1 MG/DL (0.2-1.0); Calcium 7.5 MG/DL (8.5-10.1); Osmolality,Calculated 271.5 MOS/KG (273-304); Potassium 3.7 MMOL/L (3.5-5.1); Total Protein 4.8 G/DL (6.4-8.2)
[2021-05-02 06:05] LABS: Hypochromasia 1+; Macrocytosis Slight; Platelet Estimate Normal; Polychromasia Slight
[2021-05-02] MEDS: FUROSEMIDE 20 MG TABLET PO SCH (09:25)
[2021-05-02] MEDS: SPIRONOLACTONE 50 MG TABLET PO SCH (09:25)
[2021-05-02] MEDS: FOLIC ACID 1 MG TABLET PO SCH (09:25)
[2021-05-02] MEDS: PANTOPRAZOLE 40 MG TABLET PO SCH (09:25)
[2021-05-02] MEDS: APIXABAN 5 MG TABLET PO SCH ×2 (09:25→20:22)
[2021-05-02] MEDS: MULTIVITAMIN (CENTRUM) TABLET PO SCH (09:25)
[2021-05-02] MEDS: THIAMINE 100 MG TABLET PO SCH (09:26)
[2021-05-02] MEDS: POTASSIUM CHLORIDE 20 MEQ TABLET PO PRN (12:23)
[2021-05-03] MEDS: traMADol 50 MG TABLET PO PRN ×2 (04:02→13:18)
[2021-05-03] MEDS: LEVOFLOXACIN INJ 750 MG/150 ML PREMIX IV SCH (06:01)
[2021-05-03 06:15] LABS: Basophils # 0.1 10*3/uL (0.0-0.2); Basophils % 1.9 % (0.0-0.8); Eosinophils # 0.1 10*3/uL (0.0-0.87); Eosinophils % 1.9 % (0.00-10.9); Hematocrit 31.8 VOL% (35.7-47.0); Hemoglobin 10.2 GM/DL (12.0-16.0); Immature Granulocytes % 0.6 %; Immature Granulocytes Absolute 0.03 #; Lymphocytes # 1.9 10*3/uL (1.4-4.0); Lymphocytes % 35.4 % (21.3-54.2); Mean Corpuscular HGB Conc 32.1 GM/DL (32-36); Mean Corpuscular Volume 103.6 FL (87-102); Mean Platelet Volume 10.7 FL (9.6-12.0); Neutrophils % 46.2 % (38.7-73.9); Platelet Count 324 T/CUMM (130-400); Red Blood Count 3.07 MC/CUMM (3.8-5.5); White Blood Count 5.2 T/CUMM (4-12)
[2021-05-03 06:43] LABS: Anisocytosis 1+; Macrocytosis 1+; Platelet Estimate Normal
[2021-05-03 06:44] LABS: Hypochromasia Slight
[2021-05-03 06:46] LABS: Calcium 7.7 MG/DL (8.5-10.1); Osmolality,Calculated 272.4 MOS/KG (273-304); Potassium 3.5 MMOL/L (3.5-5.1)
[2021-05-03] MEDS: THIAMINE 100 MG TABLET PO SCH (08:19)
[2021-05-03] MEDS: MULTIVITAMIN (CENTRUM) TABLET PO SCH (08:20)
[2021-05-03] MEDS: FUROSEMIDE 20 MG TABLET PO SCH (08:20)
[2021-05-03] MEDS: APIXABAN 5 MG TABLET PO SCH ×2 (08:20→21:15)
[2021-05-03] MEDS: SPIRONOLACTONE 50 MG TABLET PO SCH (08:20)
[2021-05-03] MEDS: PANTOPRAZOLE 40 MG TABLET PO SCH (08:20)
[2021-05-03] MEDS: FOLIC ACID 1 MG TABLET PO SCH (08:20)
[2021-05-03 10:32] LABS: Basophils # 0.1 10*3/uL (0.0-0.2); Basophils % 1.3 % (0.0-0.8); Eosinophils # 0.1 10*3/uL (0.0-0.87); Eosinophils % 2.1 % (0.00-10.9); Hematocrit 35.7 VOL% (35.7-47.0); Hemoglobin 11.3 GM/DL (12.0-16.0); Immature Granulocytes % 0.6 %; Immature Granulocytes Absolute 0.03 #; Lymphocytes # 1.7 10*3/uL (1.4-4.0); Lymphocytes % 32.4 % (21.3-54.2); Mean Corpuscular HGB Conc 31.7 GM/DL (32-36); Mean Corpuscular Volume 103.8 FL (87-102); Mean Platelet Volume 10.3 FL (9.6-12.0); Monocytes % 13.1 % (1.7-12.7); Neutrophils % 50.5 % (38.7-73.9); Platelet Count 332 T/CUMM (130-400); Red Blood Count 3.44 MC/CUMM (3.8-5.5); Red Cell Distribution Width 14.8 % (9.3-17.3); White Blood Count 5.3 T/CUMM (4-12)
[2021-05-03] MEDS: MAGNESIUM SULF RIDER 2 GM/50 ML PREMIX IV PRN (10:32)
[2021-05-03] MEDS: POTASSIUM CHLORIDE 20 MEQ TABLET PO PRN ×2 (10:34→12:30)
[2021-05-03 10:53] LABS: Anisocytosis 1+; Eosinophils 3 % (0-10); Lymphocytes 28 % (20-55); Macrocytosis 1+; Platelet Estimate Normal; Segmented Neutrophils 54 % (50-85); Smudge Cells Few; Total Cells Counted 100
[2021-05-03] MEDS: diphenhydrAMINE CAP 25 MG CAPSULE PO PRN (21:15)
[2021-05-04] MEDS: traMADol 50 MG TABLET PO PRN ×3 (01:46→21:04)
[2021-05-04] MEDS: diphenhydrAMINE CAP 25 MG CAPSULE PO PRN ×2 (03:27→20:58)
[2021-05-04] MEDS: LEVOFLOXACIN INJ 750 MG/150 ML PREMIX IV SCH (05:11)
[2021-05-04] MEDS: FUROSEMIDE 20 MG TABLET PO SCH (09:32)
[2021-05-04] MEDS: THIAMINE 100 MG TABLET PO SCH (09:32)
[2021-05-04] MEDS: SPIRONOLACTONE 50 MG TABLET PO SCH (09:32)
[2021-05-04] MEDS: POTASSIUM CHLORIDE 20 MEQ TABLET PO PRN ×2 (09:32→12:36)
[2021-05-04] MEDS: PANTOPRAZOLE 40 MG TABLET PO SCH (09:33)
[2021-05-04] MEDS: MULTIVITAMIN (CENTRUM) TABLET PO SCH (09:33)
[2021-05-04] MEDS: FOLIC ACID 1 MG TABLET PO SCH (09:33)
[2021-05-04] MEDS: APIXABAN 5 MG TABLET PO SCH (09:33)
[2021-05-04] MEDS: MAGNESIUM SULF RIDER 2 GM/50 ML PREMIX IV PRN (09:34)
[2021-05-05] MEDS: LEVOFLOXACIN INJ 750 MG/150 ML PREMIX IV SCH (05:13)
[2021-05-05 06:42] LABS: Basophils # 0.1 10*3/uL (0.0-0.2); Basophils % 1.8 % (0.0-0.8); Eosinophils # 0.1 10*3/uL (0.0-0.87); Eosinophils % 1.8 % (0.00-10.9); Hematocrit 31.7 VOL% (35.7-47.0); Immature Granulocytes % 0.4 %; Immature Granulocytes Absolute 0.02 #; Lymphocytes # 1.8 10*3/uL (1.4-4.0); Lymphocytes % 35.5 % (21.3-54.2); Mean Corpuscular HGB Conc 31.5 GM/DL (32-36); Mean Corpuscular Volume 103.3 FL (87-102); Mean Platelet Volume 10.4 FL (9.6-12.0); Monocytes % 15.4 % (1.7-12.7); Neutrophils % 45.1 % (38.7-73.9); Platelet Count 279 T/CUMM (130-400); Red Blood Count 3.07 MC/CUMM (3.8-5.5); Red Cell Distribution Width 14.7 % (9.3-17.3)
[2021-05-05 07:33] LABS: Anisocytosis 1+; Band Neutrophils 1 % (0-10); Eosinophils 3 % (0-10); Lymphocytes 32 % (20-55); Macrocytosis 1+; Platelet Estimate Normal; Segmented Neutrophils 49 % (50-85); Total Cells Counted 100
[2021-05-05 07:34] LABS: Stomatocytes Few
[2021-05-05 08:24] LABS: Potassium 3.6 MMOL/L (3.5-5.1)
[2021-05-05] MEDS: MULTIVITAMIN (CENTRUM) TABLET PO SCH (13:03)
[2021-05-05] MEDS: traMADol 50 MG TABLET PO PRN ×2 (13:03→20:00)
[2021-05-05] MEDS: diphenhydrAMINE CAP 25 MG CAPSULE PO PRN ×2 (13:03→19:59)
[2021-05-05] MEDS: PANTOPRAZOLE 40 MG TABLET PO SCH (13:03)
[2021-05-05] MEDS: THIAMINE 100 MG TABLET PO SCH (13:04)
[2021-05-05] MEDS: FOLIC ACID 1 MG TABLET PO SCH (13:04)
[2021-05-05] MEDS: FUROSEMIDE 20 MG TABLET PO SCH (13:04)
[2021-05-05] MEDS: SPIRONOLACTONE 50 MG TABLET PO SCH (13:04)
[2021-05-06] MEDS: ONDANSETRON 4 MG/2 ML VIAL IV PRN (03:31)
[2021-05-06] MEDS: LEVOFLOXACIN INJ 750 MG/150 ML PREMIX IV SCH (05:28)
[2021-05-06] MEDS: MULTIVITAMIN (CENTRUM) TABLET PO SCH (08:19)
[2021-05-06] MEDS: FUROSEMIDE 20 MG TABLET PO SCH (08:19)
[2021-05-06] MEDS: THIAMINE 100 MG TABLET PO SCH (08:20)
[2021-05-06] MEDS: PANTOPRAZOLE 40 MG TABLET PO SCH (08:20)
[2021-05-06] MEDS: FOLIC ACID 1 MG TABLET PO SCH (08:20)
[2021-05-06] MEDS: diphenhydrAMINE CAP 25 MG CAPSULE PO PRN (08:20)
[2021-05-06] MEDS: traMADol 50 MG TABLET PO PRN (08:20)
[2021-05-06] MEDS: SPIRONOLACTONE 50 MG TABLET PO SCH (08:20)
[2021-05-07] MEDS: ACETAMINOPHEN 325 MG TABLET PO PRN ×3 (01:48→20:44)
[2021-05-07 06:02] LABS: Calcium 7.8 MG/DL (8.5-10.1); Osmolality,Calculated 266.8 MOS/KG (273-304); Potassium 3.2 MMOL/L (3.5-5.1)
[2021-05-07] MEDS: MULTIVITAMIN (CENTRUM) TABLET PO SCH (08:34)
[2021-05-07] MEDS: THIAMINE 100 MG TABLET PO SCH (08:34)
[2021-05-07] MEDS: SPIRONOLACTONE 50 MG TABLET PO SCH (08:34)
[2021-05-07] MEDS: FUROSEMIDE 20 MG TABLET PO SCH (08:34)
[2021-05-07] MEDS: FOLIC ACID 1 MG TABLET PO SCH (08:34)
[2021-05-07] MEDS: PANTOPRAZOLE 40 MG TABLET PO SCH (08:34)
[2021-05-07] MEDS: ONDANSETRON 4 MG/2 ML VIAL IV PRN (08:39)
[2021-05-07] MEDS: APIXABAN 5 MG TABLET PO SCH ×2 (09:10→20:44)
[2021-05-08] MEDS: POTASSIUM CHLORIDE 20 MEQ TABLET PO PRN ×4 (01:00→08:22)
[2021-05-08] MEDS: ACETAMINOPHEN 325 MG TABLET PO PRN ×3 (05:26→22:48)
[2021-05-08] MEDS: MULTIVITAMIN (CENTRUM) TABLET PO SCH (08:22)
[2021-05-08] MEDS: FUROSEMIDE 20 MG TABLET PO SCH (08:22)
[2021-05-08] MEDS: PANTOPRAZOLE 40 MG TABLET PO SCH (08:22)
[2021-05-08] MEDS: APIXABAN 5 MG TABLET PO SCH ×2 (08:22→22:48)
[2021-05-08] MEDS: SPIRONOLACTONE 50 MG TABLET PO SCH (08:22)
[2021-05-08] MEDS: THIAMINE 100 MG TABLET PO SCH (08:23)
[2021-05-08] MEDS: FOLIC ACID 1 MG TABLET PO SCH (08:23)
[2021-05-08] MEDS: ONDANSETRON 4 MG/2 ML VIAL IV PRN (09:38)
[2021-05-08] MEDS: DESITIN 4OZ/NYSTATIN 15 GRAM MIXTURE PASTE TOP SCH ×2 (16:26→22:48)
[2021-05-09] MEDS: DESITIN 4OZ/NYSTATIN 15 GRAM MIXTURE PASTE TOP SCH ×2 (08:41→21:30)
[2021-05-09] MEDS: FOLIC ACID 1 MG TABLET PO SCH (08:46)
[2021-05-09] MEDS: MULTIVITAMIN (CENTRUM) TABLET PO SCH (08:46)
[2021-05-09] MEDS: THIAMINE 100 MG TABLET PO SCH (08:46)
[2021-05-09] MEDS: PANTOPRAZOLE 40 MG TABLET PO SCH (08:46)
[2021-05-09] MEDS: APIXABAN 5 MG TABLET PO SCH ×2 (08:46→21:30)
[2021-05-09] MEDS: SPIRONOLACTONE 50 MG TABLET PO SCH (08:46)
[2021-05-09] MEDS: FUROSEMIDE 20 MG TABLET PO SCH (08:47)
[2021-05-09] MEDS: ACETAMINOPHEN 325 MG TABLET PO PRN ×2 (08:56→16:03)
[2021-05-09] MEDS: chlordiazePOXIDE 10 MG CAPSULE PO PRN (21:29)
[2021-05-09] MEDS: GABAPENTIN 100 MG CAPSULE PO SCH (21:30)
[2021-05-10] MEDS: LEVOTHYROXINE 50 MCG TABLET PO SCH (05:42)
[2021-05-10] MEDS: APIXABAN 5 MG TABLET PO SCH ×2 (08:17→21:02)
[2021-05-10] MEDS: PANTOPRAZOLE 40 MG TABLET PO SCH (08:17)
[2021-05-10] MEDS: FOLIC ACID 1 MG TABLET PO SCH (08:17)
[2021-05-10] MEDS: FUROSEMIDE 20 MG TABLET PO SCH (08:17)
[2021-05-10] MEDS: THIAMINE 100 MG TABLET PO SCH (08:17)
[2021-05-10] MEDS: MULTIVITAMIN (CENTRUM) TABLET PO SCH (08:17)
[2021-05-10] MEDS: SPIRONOLACTONE 50 MG TABLET PO SCH (08:17)
[2021-05-10] MEDS: DESITIN 4OZ/NYSTATIN 15 GRAM MIXTURE PASTE TOP SCH ×2 (08:18→21:06)
[2021-05-10] MEDS: ONDANSETRON 4 MG/2 ML VIAL IV PRN ×2 (12:51→18:06)
[2021-05-10] MEDS: ACETAMINOPHEN 325 MG TABLET PO PRN (21:02)
[2021-05-10] MEDS: chlordiazePOXIDE 10 MG CAPSULE PO PRN (21:04)
[2021-05-10] MEDS: GABAPENTIN 100 MG CAPSULE PO SCH (21:04)
[2021-05-11 04:59] LABS: Basophils # 0.1 10*3/uL (0.0-0.2); Basophils % 1.9 % (0.0-0.8); Eosinophils # 0.1 10*3/uL (0.0-0.87); Hemoglobin 11.2 GM/DL (12.0-16.0); Immature Granulocytes % 0.4 %; Immature Granulocytes Absolute 0.03 #; Lymphocytes # 3.1 10*3/uL (1.4-4.0); Lymphocytes % 43.1 % (21.3-54.2); Mean Corpuscular HGB Conc 32.9 GM/DL (32-36); Mean Corpuscular Volume 96.9 FL (87-102); Mean Platelet Volume 10.6 FL (9.6-12.0); Monocytes % 10.5 % (1.7-12.7); Neutrophils % 43.1 % (38.7-73.9); Platelet Count 230 T/CUMM (130-400); Red Blood Count 3.51 MC/CUMM (3.8-5.5); Red Cell Distribution Width 15.4 % (9.3-17.3); White Blood Count 7.2 T/CUMM (4-12)
[2021-05-11 05:21] LABS: Calcium 7.6 MG/DL (8.5-10.1); Osmolality,Calculated 276.3 MOS/KG (273-304)
[2021-05-11 06:03] LABS: Eosinophils 2 % (0-10); Lymphocytes 33 % (20-55); Platelet Estimate Normal; Segmented Neutrophils 59 % (50-85); Total Cells Counted 100
[2021-05-11] MEDS: LEVOTHYROXINE 50 MCG TABLET PO SCH (06:41)
[2021-05-11] MEDS: THIAMINE 100 MG TABLET PO SCH (08:34)
[2021-05-11] MEDS: PANTOPRAZOLE 40 MG TABLET PO SCH (08:34)
[2021-05-11] MEDS: APIXABAN 5 MG TABLET PO SCH ×2 (08:34→20:52)
[2021-05-11] MEDS: FUROSEMIDE 20 MG TABLET PO SCH (08:34)
[2021-05-11] MEDS: FOLIC ACID 1 MG TABLET PO SCH (08:34)
[2021-05-11] MEDS: SPIRONOLACTONE 50 MG TABLET PO SCH (08:34)
[2021-05-11] MEDS: MULTIVITAMIN (CENTRUM) TABLET PO SCH (08:34)
[2021-05-11] MEDS: DESITIN 4OZ/NYSTATIN 15 GRAM MIXTURE PASTE TOP SCH ×2 (09:41→20:52)
[2021-05-11] MEDS: ONDANSETRON 4 MG/2 ML VIAL IV PRN (13:02)
[2021-05-11] MEDS: ACETAMINOPHEN 325 MG TABLET PO PRN (16:18)
[2021-05-11] MEDS: GABAPENTIN 100 MG CAPSULE PO SCH (20:52)
[2021-05-11] MEDS: chlordiazePOXIDE 10 MG CAPSULE PO PRN (20:52)
[2021-05-12] MEDS: LEVOTHYROXINE 50 MCG TABLET PO SCH (05:51)
[2021-05-12] MEDS: ACETAMINOPHEN 325 MG TABLET PO PRN ×2 (05:51→15:55)
[2021-05-12] MEDS: MULTIVITAMIN (CENTRUM) TABLET PO SCH (09:17)
[2021-05-12] MEDS: SPIRONOLACTONE 50 MG TABLET PO SCH (09:17)
[2021-05-12] MEDS: PANTOPRAZOLE 40 MG TABLET PO SCH (09:18)
[2021-05-12] MEDS: APIXABAN 5 MG TABLET PO SCH ×2 (09:18→21:07)
[2021-05-12] MEDS: THIAMINE 100 MG TABLET PO SCH (09:18)
[2021-05-12] MEDS: FOLIC ACID 1 MG TABLET PO SCH (09:18)
[2021-05-12] MEDS: FUROSEMIDE 20 MG TABLET PO SCH (09:23)
[2021-05-12] MEDS: DESITIN 4OZ/NYSTATIN 15 GRAM MIXTURE PASTE TOP SCH ×2 (09:25→21:08)
[2021-05-12 10:15] LABS: Calcium 7.8 MG/DL (8.5-10.1); Osmolality,Calculated 278.4 MOS/KG (273-304); Potassium 2.8 MMOL/L (3.5-5.1)
[2021-05-12] MEDS: POTASSIUM CHLORIDE 20 MEQ TABLET PO PRN ×4 (11:07→18:11)
[2021-05-12] MEDS: ONDANSETRON 4 MG/2 ML VIAL IV PRN (14:01)
[2021-05-12] MEDS: GABAPENTIN 300 MG CAPSULE PO SCH (21:07)
[2021-05-12] MEDS: chlordiazePOXIDE 10 MG CAPSULE PO PRN (23:00)
[2021-05-13 05:18] LABS: Basophils # 0.1 10*3/uL (0.0-0.2); Basophils % 2.2 % (0.0-0.8); Eosinophils # 0.1 10*3/uL (0.0-0.87); Eosinophils % 1.6 % (0.00-10.9); Hematocrit 31.3 VOL% (35.7-47.0); Hemoglobin 10.2 GM/DL (12.0-16.0); Immature Granulocytes % 0.2 %; Immature Granulocytes Absolute 0.01 #; Lymphocytes # 2.8 10*3/uL (1.4-4.0); Lymphocytes % 49.9 % (21.3-54.2); Mean Corpuscular HGB Conc 32.6 GM/DL (32-36); Mean Corpuscular Volume 98.1 FL (87-102); Mean Platelet Volume 10.9 FL (9.6-12.0); Monocytes % 9.7 % (1.7-12.7); Neutrophils % 36.4 % (38.7-73.9); Platelet Count 222 T/CUMM (130-400); Red Blood Count 3.19 MC/CUMM (3.8-5.5); Red Cell Distribution Width 15.5 % (9.3-17.3); White Blood Count 5.6 T/CUMM (4-12)
[2021-05-13 05:32] LABS: Calcium 7.9 MG/DL (8.5-10.1); Osmolality,Calculated 275.4 MOS/KG (273-304); Potassium 3.8 MMOL/L (3.5-5.1)
[2021-05-13 05:52] LABS: Eosinophils 4 % (0-10); Lymphocytes 41 % (20-55); Segmented Neutrophils 47 % (50-85); Total Cells Counted 100
[2021-05-13 05:53] LABS: Hypochromasia 1+; Microcytosis 1+; Platelet Estimate Adequate
[2021-05-13] MEDS: LEVOTHYROXINE 50 MCG TABLET PO SCH (06:02)
[2021-05-13] MEDS: FUROSEMIDE 20 MG TABLET PO SCH (09:47)
[2021-05-13] MEDS: SPIRONOLACTONE 50 MG TABLET PO SCH (09:47)
[2021-05-13] MEDS: MULTIVITAMIN (CENTRUM) TABLET PO SCH (09:47)
[2021-05-13] MEDS: THIAMINE 100 MG TABLET PO SCH (09:47)
[2021-05-13] MEDS: PANTOPRAZOLE 40 MG TABLET PO SCH (09:47)
[2021-05-13] MEDS: ACETAMINOPHEN 325 MG TABLET PO PRN ×2 (09:48→17:08)
[2021-05-13] MEDS: APIXABAN 5 MG TABLET PO SCH ×2 (09:48→20:37)
[2021-05-13] MEDS: FOLIC ACID 1 MG TABLET PO SCH (09:48)
[2021-05-13] MEDS: DESITIN 4OZ/NYSTATIN 15 GRAM MIXTURE PASTE TOP SCH ×2 (09:49→20:38)
[2021-05-13] MEDS: ONDANSETRON 4 MG/2 ML VIAL IV PRN (17:08)
[2021-05-13] MEDS: GABAPENTIN 300 MG CAPSULE PO SCH (20:37)
[2021-05-14] MEDS: LEVOTHYROXINE 50 MCG TABLET PO SCH (06:05)
[2021-05-14] MEDS: ACETAMINOPHEN 325 MG TABLET PO PRN ×3 (06:05→19:45)
[2021-05-14] MEDS: MULTIVITAMIN (CENTRUM) TABLET PO SCH (10:33)
[2021-05-14] MEDS: FOLIC ACID 1 MG TABLET PO SCH (10:33)
[2021-05-14] MEDS: SPIRONOLACTONE 50 MG TABLET PO SCH (10:33)
[2021-05-14] MEDS: APIXABAN 5 MG TABLET PO SCH ×2 (10:33→21:39)
[2021-05-14] MEDS: FUROSEMIDE 20 MG TABLET PO SCH (10:33)
[2021-05-14] MEDS: PANTOPRAZOLE 40 MG TABLET PO SCH (10:33)
[2021-05-14] MEDS: THIAMINE 100 MG TABLET PO SCH (10:34)
[2021-05-14] MEDS: DESITIN 4OZ/NYSTATIN 15 GRAM MIXTURE PASTE TOP SCH (10:36)
[2021-05-14] MEDS: ONDANSETRON 4 MG/2 ML VIAL IV PRN (19:44)
[2021-05-14] MEDS: GABAPENTIN 300 MG CAPSULE PO SCH (21:39)
[2021-05-15] MEDS: DESITIN 4OZ/NYSTATIN 15 GRAM MIXTURE PASTE TOP SCH ×2 (00:17→10:52)
[2021-05-15] MEDS: LEVOTHYROXINE 50 MCG TABLET PO SCH (05:36)
[2021-05-15] MEDS: SPIRONOLACTONE 50 MG TABLET PO SCH (10:49)
[2021-05-15] MEDS: MULTIVITAMIN (CENTRUM) TABLET PO SCH (10:49)
[2021-05-15] MEDS: APIXABAN 5 MG TABLET PO SCH (10:49)
[2021-05-15] MEDS: PANTOPRAZOLE 40 MG TABLET PO SCH (10:50)
[2021-05-15] MEDS: THIAMINE 100 MG TABLET PO SCH (10:50)
[2021-05-15] MEDS: FOLIC ACID 1 MG TABLET PO SCH (10:50)
[2021-05-15] MEDS: FUROSEMIDE 20 MG TABLET PO SCH (10:50)
[2021-05-15] MEDS: ACETAMINOPHEN 325 MG TABLET PO PRN (11:21)
[2021-05-15 11:46] VITALS: BP 100/64
== END 2021-05-15 12:40 | disposition home or self-care (01) | DRG 640 ==
LOC: N.EDINP 18:05 → N.ED 18:05 → SUATTDRO 04-30 03:02 → N.EDINP 04-30 05:06 → N.3E 04-30 05:22 → SUATTDRO 05-06 14:20
PROVIDERS: ADMIT Internal Medicine; ATTEND Internal Medicine

== ENCOUNTER 2021-05-21 13:35 | Inpatient (IN) ==
[2021-05-21] MEDS ORDERED: PANTOPRAZOLE 40 MG VIAL IV STA (13:55)
[2021-05-21] MEDS ORDERED: ONDANSETRON 4 MG/2 ML VIAL IV STA (13:55)
[2021-05-21] MEDS ORDERED: SODIUM CHLORIDE 0.9% 1,000 ML IV STA (13:56)
[2021-05-21 14:15] LABS: Basophils # 0.1 10*3/uL (0.0-0.2); Basophils % 0.5 % (0.0-0.8); Hematocrit 26.3 VOL% (35.7-47.0); Hemoglobin 8.3 GM/DL (12.0-16.0); Immature Granulocytes % 0.3 %; Immature Granulocytes Absolute 0.03 #; Lymphocytes # 2.5 10*3/uL (1.4-4.0); Lymphocytes % 23.6 % (21.3-54.2); Mean Corpuscular HGB Conc 31.6 GM/DL (32-36); Mean Corpuscular Volume 99.2 FL (87-102); Mean Platelet Volume 10.8 FL (9.6-12.0); Monocytes % 6.8 % (1.7-12.7); Neutrophils % 68.8 % (38.7-73.9); Platelet Count 526 T/CUMM (130-400); Red Blood Count 2.65 MC/CUMM (3.8-5.5); Red Cell Distribution Width 16.2 % (9.3-17.3); White Blood Count 10.4 T/CUMM (4-12)
[2021-05-21 14:26] LABS: INR 1.5; PT Patient Result 16.4 SECS (10.5-12.0); Partial Thromboplastin Time 33.3 SECS (23.9-33.8)
[2021-05-21 14:41] LABS: Albumin 1.3 G/DL (3.4-5.0); Bilirubin,Total 0.7 MG/DL (0.2-1.0); Calcium 7.4 MG/DL (8.5-10.1); Osmolality,Calculated 279.4 MOS/KG (273-304); Potassium 4.3 MMOL/L (3.5-5.1); Total Protein 4.6 G/DL (6.4-8.2)
[2021-05-21] MEDS ORDERED: ALBUTEROL 2.5 MG/3 ML NEB RESP TX PRN (14:52)
[2021-05-21] MEDS ORDERED: LORazepam 2 MG/1 ML VIAL IV PRN (16:12)
[2021-05-21] MEDS ORDERED: QUEtiapine 25 MG TABLET PO SCH ×2 (16:13→18:00)
[2021-05-21 17:58] LABS: Hematocrit 22.7 VOL% (35.7-47.0); Hemoglobin 7.3 GM/DL (12.0-16.0)
[2021-05-21] MEDS ORDERED: DIGOXIN 0.5 MG/2 ML AMP IV ONE ×2 (18:36→19:49)
[2021-05-21] MEDS ORDERED: SODIUM CHLORIDE 0.9% 1,000 ML IV PRN (18:40)
[2021-05-21] MEDS: PANTOPRAZOLE 40 MG VIAL IV SCH (21:21)
[2021-05-22 00:27] LABS: Hematocrit 24.1 VOL% (35.7-47.0); Hemoglobin 7.7 GM/DL (12.0-16.0)
[2021-05-22] MEDS ORDERED: SODIUM CHLORIDE 0.9% 500 ML IV ONE (02:17)
[2021-05-22] MEDS ORDERED: MORPHINE 4 MG/1 ML VIAL IV ONE (02:22)
[2021-05-22 02:43] LABS: Basophils # 0.1 10*3/uL (0.0-0.2); Eosinophils # 0.1 10*3/uL (0.0-0.87); Eosinophils % 0.5 % (0.00-10.9); Hematocrit 24.1 VOL% (35.7-47.0); Hemoglobin 7.5 GM/DL (12.0-16.0); Immature Granulocytes % 0.3 %; Immature Granulocytes Absolute 0.03 #; Lymphocytes # 4.8 10*3/uL (1.4-4.0); Lymphocytes % 46.4 % (21.3-54.2); Mean Corpuscular HGB Conc 31.1 GM/DL (32-36); Mean Corpuscular Volume 95.6 FL (87-102); Mean Platelet Volume 10.7 FL (9.6-12.0); Monocytes % 9.2 % (1.7-12.7); Neutrophils % 42.6 % (38.7-73.9); Platelet Count 417 T/CUMM (130-400); Red Blood Count 2.52 MC/CUMM (3.8-5.5); Red Cell Distribution Width 17.1 % (9.3-17.3); White Blood Count 10.4 T/CUMM (4-12)
[2021-05-22 02:53] LABS: Albumin 0.9 G/DL (3.4-5.0); Bilirubin,Total 0.5 MG/DL (0.2-1.0); Osmolality,Calculated 280.4 MOS/KG (273-304); Potassium 4.5 MMOL/L (3.5-5.1); Total Protein 3.7 G/DL (6.4-8.2)
[2021-05-22] MEDS: ONDANSETRON 4 MG/2 ML VIAL IV PRN (05:50)
[2021-05-22] MEDS: ALPRAZolam 0.5 MG TABLET PO PRN (07:47)
[2021-05-22 08:21] LABS: Hematocrit 30.8 VOL% (35.7-47.0)
[2021-05-22 08:26] LABS: Hemoglobin 10.1 GM/DL (12.0-16.0)
[2021-05-22] MEDS: PANTOPRAZOLE 40 MG VIAL IV SCH ×2 (09:10→21:06)
[2021-05-22] MEDS: QUEtiapine 25 MG TABLET PO SCH ×2 (09:55→21:06)
[2021-05-22] MEDS ORDERED: DIGOXIN 0.5 MG/2 ML AMP IV ONE ×3 (11:31→13:30)
[2021-05-22] MEDS ORDERED: DIGOXIN 0.5 MG/2 ML AMP ONE (11:35)
[2021-05-22] MEDS ORDERED: LACTATED RINGERS 500 ML IV ONE (12:52)
[2021-05-22 13:01] LABS: Hematocrit 30.4 VOL% (35.7-47.0)
[2021-05-22] MEDS: SOTALOL 80 MG TABLET PO SCH ×2 (15:27→21:06)
[2021-05-22] MEDS ORDERED: NICOTINE 21 MG/24 HR PATCH TRANSDERM PRN (18:44)
[2021-05-23] MEDS: ONDANSETRON 4 MG/2 ML VIAL IV PRN ×2 (00:18→12:08)
[2021-05-23] MEDS: LEVOTHYROXINE 50 MCG TABLET PO SCH (05:53)
[2021-05-23] MEDS: PANTOPRAZOLE 40 MG VIAL IV SCH ×2 (08:14→20:26)
[2021-05-23] MEDS: LACTATED RINGERS 1,000 ML IV SCH (08:14)
[2021-05-23] MEDS: VITAMIN E 1000 UNIT CAPSULE PO SCH (08:15)
[2021-05-23] MEDS ORDERED: PHENYLEPHRINE 1 MG/10 ML SYRINGE IV ONE (10:17)
[2021-05-23] MEDS ORDERED: LIDOCAINE 2% 5 ML VIAL ONE (10:19)
[2021-05-23] MEDS ORDERED: propofoL 200 MG/20 ML VIAL IV ONE (10:19)
[2021-05-23] MEDS: QUEtiapine 25 MG TABLET PO SCH ×2 (12:08→20:25)
[2021-05-23] MEDS: THIAMINE 100 MG TABLET PO SCH (12:08)
[2021-05-23] MEDS: MAGNESIUM OXIDE 400 MG TABLET PO SCH (12:09)
[2021-05-23] MEDS: SOTALOL 80 MG TABLET PO SCH ×2 (12:09→20:25)
[2021-05-23] MEDS: FOLIC ACID 1 MG TABLET PO SCH (12:09)
[2021-05-24] MEDS: ALPRAZolam 0.5 MG TABLET PO PRN (01:09)
[2021-05-24 04:46] LABS: Basophils # 0.1 10*3/uL (0.0-0.2); Basophils % 1.2 % (0.0-0.8); Eosinophils # 0.1 10*3/uL (0.0-0.87); Eosinophils % 2.2 % (0.00-10.9); Hematocrit 24.4 VOL% (35.7-47.0); Immature Granulocytes % 0.3 %; Immature Granulocytes Absolute 0.02 #; Lymphocytes # 3.6 10*3/uL (1.4-4.0); Mean Corpuscular HGB Conc 32.4 GM/DL (32-36); Mean Corpuscular Volume 96.4 FL (87-102); Mean Platelet Volume 10.8 FL (9.6-12.0); Monocytes % 11.1 % (1.7-12.7); NRBC # 0.02 10*3/uL; Neutrophils % 29.2 % (38.7-73.9); Platelet Count 339 T/CUMM (130-400); Red Blood Count 2.53 MC/CUMM (3.8-5.5); Red Cell Distribution Width 16.2 % (9.3-17.3); White Blood Count 6.4 T/CUMM (4-12)
[2021-05-24 04:59] LABS: Calcium 7.2 MG/DL (8.5-10.1); Osmolality,Calculated 272.8 MOS/KG (273-304); Potassium 4.3 MMOL/L (3.5-5.1)
[2021-05-24 05:20] LABS: Hemoglobin 7.9 GM/DL (12.0-16.0)
[2021-05-24 05:26] LABS: Hypochromasia 1+; Lymphocytes 48 % (20-55); Microcytosis 1+; Platelet Estimate Adequate; Segmented Neutrophils 46 % (50-85); Total Cells Counted 100
[2021-05-24] MEDS: LEVOTHYROXINE 50 MCG TABLET PO SCH (06:05)
[2021-05-24] MEDS: LACTATED RINGERS 1,000 ML IV SCH (07:10)
[2021-05-24] MEDS: PANTOPRAZOLE 40 MG VIAL IV SCH ×2 (08:38→20:30)
[2021-05-24] MEDS: SOTALOL 80 MG TABLET PO SCH ×2 (08:39→20:33)
[2021-05-24] MEDS: MAGNESIUM OXIDE 400 MG TABLET PO SCH (08:39)
[2021-05-24] MEDS: FOLIC ACID 1 MG TABLET PO SCH (08:39)
[2021-05-24] MEDS: VITAMIN E 1000 UNIT CAPSULE PO SCH (08:39)
[2021-05-24] MEDS: THIAMINE 100 MG TABLET PO SCH (08:39)
[2021-05-24] MEDS: QUEtiapine 25 MG TABLET PO SCH ×2 (08:39→20:30)
[2021-05-25 05:16] LABS: Basophils # 0.1 10*3/uL (0.0-0.2); Basophils % 1.3 % (0.0-0.8); Eosinophils # 0.1 10*3/uL (0.0-0.87); Eosinophils % 0.8 % (0.00-10.9); Hematocrit 24.1 VOL% (35.7-47.0); Hemoglobin 7.7 GM/DL (12.0-16.0); Immature Granulocytes % 0.3 %; Immature Granulocytes Absolute 0.03 #; Lymphocytes # 2.6 10*3/uL (1.4-4.0); Mean Corpuscular Volume 94.5 FL (87-102); Mean Platelet Volume 10.6 FL (9.6-12.0); Monocytes % 10.8 % (1.7-12.7); Neutrophils % 56.8 % (38.7-73.9); Platelet Count 386 T/CUMM (130-400); Red Blood Count 2.55 MC/CUMM (3.8-5.5); Red Cell Distribution Width 16.3 % (9.3-17.3); White Blood Count 8.7 T/CUMM (4-12)
[2021-05-25 05:34] LABS: Calcium 7.3 MG/DL (8.5-10.1); Osmolality,Calculated 274.5 MOS/KG (273-304)
[2021-05-25] MEDS: LEVOTHYROXINE 50 MCG TABLET PO SCH (06:11)
[2021-05-25] MEDS: PANTOPRAZOLE 40 MG VIAL IV SCH ×2 (09:10→20:19)
[2021-05-25] MEDS: VITAMIN E 1000 UNIT CAPSULE PO SCH (09:10)
[2021-05-25] MEDS: LACTATED RINGERS 1,000 ML IV SCH (09:10)
[2021-05-25] MEDS: SOTALOL 80 MG TABLET PO SCH ×2 (09:44→20:19)
[2021-05-25] MEDS: THIAMINE 100 MG TABLET PO SCH (09:45)
[2021-05-25] MEDS: FOLIC ACID 1 MG TABLET PO SCH (09:45)
[2021-05-25] MEDS: QUEtiapine 25 MG TABLET PO SCH ×2 (09:45→20:19)
[2021-05-25] MEDS: MAGNESIUM OXIDE 400 MG TABLET PO SCH (09:45)
[2021-05-26 04:51] LABS: Basophils # 0.1 10*3/uL (0.0-0.2); Basophils % 1.5 % (0.0-0.8); Eosinophils # 0.1 10*3/uL (0.0-0.87); Hematocrit 24.5 VOL% (35.7-47.0); Hemoglobin 7.7 GM/DL (12.0-16.0); Immature Granulocytes % 0.2 %; Immature Granulocytes Absolute 0.01 #; Lymphocytes # 3.5 10*3/uL (1.4-4.0); Lymphocytes % 52.5 % (21.3-54.2); Mean Corpuscular HGB Conc 31.4 GM/DL (32-36); Mean Corpuscular Volume 96.8 FL (87-102); Mean Platelet Volume 10.6 FL (9.6-12.0); Monocytes % 14.3 % (1.7-12.7); Neutrophils % 29.5 % (38.7-73.9); Platelet Count 401 T/CUMM (130-400); Red Blood Count 2.53 MC/CUMM (3.8-5.5); Red Cell Distribution Width 16.7 % (9.3-17.3); White Blood Count 6.6 T/CUMM (4-12)
[2021-05-26 05:08] LABS: Calcium 7.4 MG/DL (8.5-10.1); Osmolality,Calculated 274.4 MOS/KG (273-304); Potassium 3.8 MMOL/L (3.5-5.1)
[2021-05-26 05:12] LABS: Eosinophils 1 % (0-10); Hypochromasia 1+; Lymphocytes 45 % (20-55); Microcytosis 1+; Nucleated Red Blood Cells 1 (0-5); Platelet Estimate Adequate; Segmented Neutrophils 37 % (50-85); Total Cells Counted 100
[2021-05-26 05:13] LABS: Atypical Lymphocytes Few
[2021-05-26] MEDS: LEVOTHYROXINE 50 MCG TABLET PO SCH (05:59)
[2021-05-26] MEDS: LACTATED RINGERS 1,000 ML IV SCH (08:22)
[2021-05-26] MEDS ORDERED: SODIUM CHLORIDE 0.9% 1,000 ML IV PRN (08:25)
[2021-05-26] MEDS ORDERED: ACETAMINOPHEN 325 MG TABLET PO ONE (10:15)
[2021-05-26] MEDS: FOLIC ACID 1 MG TABLET PO SCH (10:24)
[2021-05-26] MEDS: QUEtiapine 25 MG TABLET PO SCH ×2 (10:24→21:22)
[2021-05-26] MEDS: VITAMIN E 1000 UNIT CAPSULE PO SCH (10:24)
[2021-05-26] MEDS: MAGNESIUM OXIDE 400 MG TABLET PO SCH (10:24)
[2021-05-26] MEDS: THIAMINE 100 MG TABLET PO SCH (10:24)
[2021-05-26] MEDS: SOTALOL 80 MG TABLET PO SCH ×2 (10:25→21:24)
[2021-05-26] MEDS: PANTOPRAZOLE 40 MG VIAL IV SCH ×2 (14:01→21:23)
[2021-05-26] MEDS: ONDANSETRON 4 MG/2 ML VIAL IV PRN (16:28)
[2021-05-27 04:35] LABS: Basophils # 0.1 10*3/uL (0.0-0.2); Basophils % 1.4 % (0.0-0.8); Eosinophils # 0.1 10*3/uL (0.0-0.87); Hematocrit 30.1 VOL% (35.7-47.0); Immature Granulocytes % 0.4 %; Immature Granulocytes Absolute 0.03 #; Lymphocytes # 3.8 10*3/uL (1.4-4.0); Lymphocytes % 53.4 % (21.3-54.2); Mean Corpuscular HGB Conc 31.6 GM/DL (32-36); Mean Corpuscular Volume 97.7 FL (87-102); Mean Platelet Volume 10.4 FL (9.6-12.0); Monocytes % 12.2 % (1.7-12.7); Neutrophils % 30.6 % (38.7-73.9); Platelet Count 416 T/CUMM (130-400); Red Cell Distribution Width 15.9 % (9.3-17.3); White Blood Count 7.1 T/CUMM (4-12)
[2021-05-27 04:51] LABS: Hemoglobin 9.5 GM/DL (12.0-16.0); Red Blood Count 3.08 MC/CUMM (3.8-5.5)
[2021-05-27 05:02] LABS: Albumin 1.1 G/DL (3.4-5.0); Bilirubin,Total 0.7 MG/DL (0.2-1.0); Calcium 7.3 MG/DL (8.5-10.1); Osmolality,Calculated 274.4 MOS/KG (273-304); Potassium 3.8 MMOL/L (3.5-5.1); Total Protein 4.6 G/DL (6.4-8.2)
[2021-05-27 05:06] LABS: Atypical Lymphocytes Few; Eosinophils 1 % (0-10); Hypochromasia 1+; Lymphocytes 45 % (20-55); Microcytosis 1+; Platelet Estimate Adequate; Segmented Neutrophils 46 % (50-85); Total Cells Counted 100
[2021-05-27] MEDS: LEVOTHYROXINE 50 MCG TABLET PO SCH (05:48)
[2021-05-27] MEDS: LACTATED RINGERS 1,000 ML IV SCH (07:41)
[2021-05-27] MEDS ORDERED: diphenhydrAMINE 2% CREAM 28 GM TUBE TOP PRN (09:49)
[2021-05-27] MEDS: diphenhydrAMINE CAP 25 MG CAPSULE PO PRN ×2 (10:01→20:59)
[2021-05-27] MEDS: MAGNESIUM OXIDE 400 MG TABLET PO SCH (10:01)
[2021-05-27] MEDS: THIAMINE 100 MG TABLET PO SCH (10:02)
[2021-05-27] MEDS: FOLIC ACID 1 MG TABLET PO SCH (10:02)
[2021-05-27] MEDS: PANTOPRAZOLE 40 MG VIAL IV SCH (10:02)
[2021-05-27] MEDS: VITAMIN E 1000 UNIT CAPSULE PO SCH (10:02)
[2021-05-27] MEDS: QUEtiapine 25 MG TABLET PO SCH ×2 (10:02→21:00)
[2021-05-27] MEDS: SOTALOL 80 MG TABLET PO SCH ×2 (12:05→21:00)
[2021-05-27] MEDS: PANTOPRAZOLE 40 MG TABLET PO SCH (18:09)
[2021-05-28] MEDS: ONDANSETRON 4 MG/2 ML VIAL IV PRN ×2 (04:03→20:31)
[2021-05-28 04:36] LABS: Basophils # 0.1 10*3/uL (0.0-0.2); Basophils % 1.8 % (0.0-0.8); Eosinophils # 0.1 10*3/uL (0.0-0.87); Eosinophils % 1.6 % (0.00-10.9); Hematocrit 28.3 VOL% (35.7-47.0); Immature Granulocytes % 0.3 %; Immature Granulocytes Absolute 0.02 #; Lymphocytes # 3.1 10*3/uL (1.4-4.0); Mean Corpuscular HGB Conc 31.8 GM/DL (32-36); Mean Corpuscular Volume 98.3 FL (87-102); Mean Platelet Volume 9.8 FL (9.6-12.0); Monocytes % 12.5 % (1.7-12.7); Neutrophils % 34.8 % (38.7-73.9); Platelet Count 410 T/CUMM (130-400); Red Blood Count 2.88 MC/CUMM (3.8-5.5); Red Cell Distribution Width 16.2 % (9.3-17.3); White Blood Count 6.2 T/CUMM (4-12)
[2021-05-28 05:11] LABS: Lymphocytes 36 % (20-55); Platelet Estimate Adequate; Segmented Neutrophils 54 % (50-85); Total Cells Counted 100
[2021-05-28 05:12] LABS: Hypochromasia 1+; Microcytosis 1+
[2021-05-28 05:14] LABS: Albumin 1.2 G/DL (3.4-5.0); Atypical Lymphocytes Few; Bilirubin,Total 0.6 MG/DL (0.2-1.0); Calcium 7.6 MG/DL (8.5-10.1); Potassium 3.8 MMOL/L (3.5-5.1); Total Protein 4.2 G/DL (6.4-8.2)
[2021-05-28] MEDS: PANTOPRAZOLE 40 MG TABLET PO SCH (06:38)
[2021-05-28] MEDS: LEVOTHYROXINE 50 MCG TABLET PO SCH (06:38)
[2021-05-28] MEDS: LACTATED RINGERS 1,000 ML IV SCH ×3 (08:47→23:20)
[2021-05-28] MEDS: QUEtiapine 25 MG TABLET PO SCH ×2 (08:49→20:33)
[2021-05-28] MEDS: SOTALOL 80 MG TABLET PO SCH ×2 (08:49→20:34)
[2021-05-28] MEDS: FOLIC ACID 1 MG TABLET PO SCH (08:49)
[2021-05-28] MEDS: MAGNESIUM OXIDE 400 MG TABLET PO SCH (08:49)
[2021-05-28] MEDS: VITAMIN E 1000 UNIT CAPSULE PO SCH (08:49)
[2021-05-28] MEDS: THIAMINE 100 MG TABLET PO SCH (08:49)
[2021-05-28 14:02] LABS: Basophils # 0.1 10*3/uL (0.0-0.2); Basophils % 1.8 % (0.0-0.8); Eosinophils % 0.5 % (0.00-10.9); Hematocrit 31.2 VOL% (35.7-47.0); Hemoglobin 9.7 GM/DL (12.0-16.0); Immature Granulocytes % 0.2 %; Immature Granulocytes Absolute 0.01 #; Lymphocytes # 2.4 10*3/uL (1.4-4.0); Lymphocytes % 38.7 % (21.3-54.2); Mean Corpuscular HGB Conc 31.1 GM/DL (32-36); Mean Corpuscular Volume 98.7 FL (87-102); Mean Platelet Volume 9.5 FL (9.6-12.0); Neutrophils % 45.8 % (38.7-73.9); Platelet Count 447 T/CUMM (130-400); Red Blood Count 3.16 MC/CUMM (3.8-5.5); Red Cell Distribution Width 16.1 % (9.3-17.3); White Blood Count 6.2 T/CUMM (4-12)
[2021-05-28 14:03] LABS: % Iron Saturation 15.5 % (18-50); Thyroid Stimulating Hormone 6.13 uIU/ml (0.358-3.74)
[2021-05-28 14:32] LABS: Anisocytosis 1+; Atypical Lymphocytes 1+; Hypochromasia 1+; Lymphocytes 39 % (20-55); Platelet Estimate Adequate; Polychromasia 1+; Segmented Neutrophils 46 % (50-85)
[2021-05-28 14:33] LABS: Total Cells Counted 100
[2021-05-28 15:06] LABS: Sedimentation Rate-Westergren 31 MM/HR (0-20)
[2021-05-28] MEDS: PANTOPRAZOLE INJ 200 MG in SODIUM CHLORIDE 0.9% 250 ML IV SCH (16:26)
[2021-05-28] MEDS: diphenhydrAMINE CAP 25 MG CAPSULE PO PRN (16:34)
[2021-05-28 20:17] LABS: Vitamin B12 1425 PG/ML (211-911)
[2021-05-28 20:40] LABS: Hematocrit 31.2 VOL% (35.7-47.0)
[2021-05-28] MEDS ORDERED: SODIUM CHLORIDE 0.9% 500 ML IV ONE (23:20)
[2021-05-29] MEDS: LACTATED RINGERS 1,000 ML IV SCH ×4 (00:33→15:19)
[2021-05-29] MEDS: diphenhydrAMINE CAP 25 MG CAPSULE PO PRN ×3 (00:37→23:15)
[2021-05-29 01:57] LABS: Basophils # 0.1 10*3/uL (0.0-0.2); Basophils % 1.4 % (0.0-0.8); Eosinophils # 0.1 10*3/uL (0.0-0.87); Eosinophils % 1.4 % (0.00-10.9); Immature Granulocytes % 0.2 %; Immature Granulocytes Absolute 0.01 #; Lymphocytes # 2.7 10*3/uL (1.4-4.0); Lymphocytes % 47.5 % (21.3-54.2); Mean Corpuscular HGB Conc 32.3 GM/DL (32-36); Mean Corpuscular Volume 97.3 FL (87-102); Mean Platelet Volume 10.1 FL (9.6-12.0); Monocytes % 12.3 % (1.7-12.7); Neutrophils % 37.2 % (38.7-73.9); Platelet Count 340 T/CUMM (130-400); Red Blood Count 2.55 MC/CUMM (3.8-5.5); White Blood Count 5.7 T/CUMM (4-12)
[2021-05-29 02:07] LABS: Calcium 7.1 MG/DL (8.5-10.1); Osmolality,Calculated 278.1 MOS/KG (273-304); Potassium 3.6 MMOL/L (3.5-5.1)
[2021-05-29 02:07] LABS: Hematocrit 27.3 VOL% (35.7-47.0); Hemoglobin 8.3 GM/DL (12.0-16.0)
[2021-05-29 02:12] LABS: Bilirubin,Total 0.5 MG/DL (0.2-1.0); Calcium 6.9 MG/DL (8.5-10.1); Osmolality,Calculated 277.1 MOS/KG (273-304); Potassium 3.3 MMOL/L (3.5-5.1); Total Protein 3.6 G/DL (6.4-8.2)
[2021-05-29 04:11] LABS: Atypical Lymphocytes Few; Eosinophils 3 % (0-10); Lymphocytes 44 % (20-55); Segmented Neutrophils 41 % (50-85); Smudge Cells Few; Total Cells Counted 100
[2021-05-29 04:12] LABS: Hypochromasia 1+; Microcytosis 1+; Polychromasia Slight
[2021-05-29] MEDS: LEVOTHYROXINE 50 MCG TABLET PO SCH (06:00)
[2021-05-29] MEDS ORDERED: POTASSIUM CHLORIDE 20 MEQ TABLET PO ONE (07:30)
[2021-05-29 07:50] LABS: Hematocrit 26.5 VOL% (35.7-47.0); Hemoglobin 8.4 GM/DL (12.0-16.0)
[2021-05-29] MEDS: QUEtiapine 25 MG TABLET PO SCH ×2 (09:06→21:50)
[2021-05-29] MEDS: THIAMINE 100 MG TABLET PO SCH (09:06)
[2021-05-29] MEDS: FOLIC ACID 1 MG TABLET PO SCH (09:06)
[2021-05-29] MEDS: MAGNESIUM OXIDE 400 MG TABLET PO SCH (09:06)
[2021-05-29] MEDS: VITAMIN E 1000 UNIT CAPSULE PO SCH (09:07)
[2021-05-29] MEDS: SOTALOL 80 MG TABLET PO SCH ×2 (09:07→21:39)
[2021-05-29 11:31] LABS: Hemoglobin A1 (Alkaline) 97.9 % (96.5-98.5); Hemoglobin A2 (Alkaline) 2.1 % (1.5-3.5)
[2021-05-29] MEDS: PANTOPRAZOLE INJ 200 MG in SODIUM CHLORIDE 0.9% 250 ML IV SCH (15:50)
[2021-05-29] MEDS: ONDANSETRON 4 MG/2 ML VIAL IV PRN (17:34)
[2021-05-29] MEDS ORDERED: POLYETHYLENE GLYCOL POWDER 255 GM BOTTLE PO ONE (18:00)
[2021-05-29] MEDS: BISACODYL 5 MG TABLET PO SCH (18:20)
[2021-05-29] MEDS ORDERED: MAGNESIUM CITRATE 300 ML BOTTLE PO ONE (21:00)
[2021-05-29] MEDS: ALPRAZolam 0.5 MG TABLET PO PRN (21:51)
[2021-05-30] MEDS: BISACODYL 5 MG TABLET PO SCH ×2 (00:15→09:10)
[2021-05-30] MEDS: ONDANSETRON 4 MG/2 ML VIAL IV PRN (04:44)
[2021-05-30 04:56] LABS: Basophils # 0.1 10*3/uL (0.0-0.2); Basophils % 1.7 % (0.0-0.8); Eosinophils # 0.1 10*3/uL (0.0-0.87); Eosinophils % 1.5 % (0.00-10.9); Hematocrit 33.2 VOL% (35.7-47.0); Hemoglobin 9.9 GM/DL (12.0-16.0); Immature Granulocytes % 0.1 %; Immature Granulocytes Absolute 0.01 #; Lymphocytes # 3.4 10*3/uL (1.4-4.0); Mean Corpuscular HGB Conc 29.8 GM/DL (32-36); Mean Corpuscular Volume 101.2 FL (87-102); Mean Platelet Volume 9.9 FL (9.6-12.0); Neutrophils % 42.7 % (38.7-73.9); Platelet Count 489 T/CUMM (130-400); Red Blood Count 3.28 MC/CUMM (3.8-5.5); Red Cell Distribution Width 15.8 % (9.3-17.3); White Blood Count 7.5 T/CUMM (4-12)
[2021-05-30 05:34] LABS: Albumin 1.1 G/DL (3.4-5.0); Bilirubin,Total 0.5 MG/DL (0.2-1.0); Calcium 7.3 MG/DL (8.5-10.1); Osmolality,Calculated 274.4 MOS/KG (273-304); Potassium 3.5 MMOL/L (3.5-5.1); Total Protein 4.5 G/DL (6.4-8.2)
[2021-05-30 05:52] LABS: Hypochromasia 1+
[2021-05-30 05:53] LABS: Microcytosis 1+; Platelet Estimate Increased
[2021-05-30] MEDS: LEVOTHYROXINE 50 MCG TABLET PO SCH (06:06)
[2021-05-30] MEDS: SOTALOL 80 MG TABLET PO SCH (08:07)
[2021-05-30] MEDS: THIAMINE 100 MG TABLET PO SCH (09:10)
[2021-05-30] MEDS: FOLIC ACID 1 MG TABLET PO SCH (09:10)
[2021-05-30] MEDS: QUEtiapine 25 MG TABLET PO SCH (09:10)
[2021-05-30] MEDS: MAGNESIUM OXIDE 400 MG TABLET PO SCH (09:10)
[2021-05-30] MEDS: VITAMIN E 1000 UNIT CAPSULE PO SCH (09:10)
[2021-05-30] MEDS: LACTATED RINGERS 1,000 ML IV SCH (09:11)
[2021-05-30] MEDS: ALPRAZolam 0.5 MG TABLET PO PRN (09:15)
[2021-05-30 12:11] VITALS: BP 86/48
[2021-05-30] MEDS ORDERED: PANTOPRAZOLE 40 MG VIAL IV SCH (21:00)
== END 2021-05-30 15:39 | disposition home or self-care (01) | DRG 813 ==
LOC: N.ED 13:35 → SUATTDRO 14:52 → N.EDINP 14:52 → N.CC 17:35 → N.TELEN 05-22 18:07
PROVIDERS: ADMIT Internal Medicine; ATTEND Internal Medicine

== ENCOUNTER 2021-08-28 14:35 | Inpatient (IN) ==
[2021-08-28] MEDS ORDERED: SODIUM CHLORIDE 0.9% 1,000 ML IV STA ×2 (14:57→16:52)
[2021-08-28] MEDS ORDERED: PANTOPRAZOLE 40 MG VIAL IV STA (14:57)
[2021-08-28] MEDS ORDERED: SODIUM CHLORIDE 0.9% 1,000 ML IV PRN (14:58)
[2021-08-28] MEDS ORDERED: THIAMINE 200 MG/2 ML VIAL IV STA (15:20)
[2021-08-28 15:43] LABS: Basophils % 0.1 % (0.0-0.8); Eosinophils % 0.1 % (0.00-10.9); Hemoglobin 9.5 GM/DL (12.0-16.0); Immature Granulocytes % 1.2 %; Immature Granulocytes Absolute 0.09 #; Lymphocytes # 1.4 10*3/uL (1.4-4.0); Lymphocytes % 17.8 % (21.3-54.2); Mean Corpuscular HGB Conc 31.7 GM/DL (32-36); Mean Corpuscular Volume 87.2 FL (87-102); Mean Platelet Volume 10.8 FL (9.6-12.0); Monocytes % 6.1 % (1.7-12.7); Neutrophils % 74.7 % (38.7-73.9); Platelet Count 190 T/CUMM (130-400); Red Blood Count 3.44 MC/CUMM (3.8-5.5); Red Cell Distribution Width 21.2 % (9.3-17.3); White Blood Count 7.7 T/CUMM (4-12)
[2021-08-28 16:00] LABS: INR 4.1; PT Patient Result 41.4 SECS (10.5-12.0)
[2021-08-28] MEDS ORDERED: PHYTONADIONE 10 MG/1 ML AMP SUBCUT STA (16:19)
[2021-08-28 16:21] LABS: Albumin 1.2 G/DL (3.4-5.0); Bilirubin,Total 1.4 MG/DL (0.20-1.00); Osmolality,Calculated 269.8 MOS/KG (273-304); Potassium 3.4 MMOL/L (3.5-5.1); Total Protein 5.1 G/DL (6.4-8.2)
[2021-08-28] MEDS ORDERED: DEXTROSE 50% 25 GM/50 ML VIAL IV STA (16:36)
[2021-08-28] MEDS ORDERED: HYDROCORTISONE 100 MG VIAL IV STA (17:10)
[2021-08-28] MEDS ORDERED: metroNIDAZOLE INJ 500 MG/100 ML PREMIX IV STA (17:13)
[2021-08-28] MEDS ORDERED: ALBUTEROL 2.5 MG/3 ML NEB RESP TX PRN (17:24)
[2021-08-28] MEDS ORDERED: LACTATED RINGERS 1,000 ML IV ONE (17:29)
[2021-08-28 17:38] LABS: ABG HCO3 20.2 MMOL/L (20-26); ABG Oxygen Saturation 91.7 % (95-100); ABG PH 7.458 (7.35-7.45); ABG PO2 65.3 MM HG (80-95); ABG TCO2 16.2 MMOL/L (23-27)
[2021-08-28] MEDS: cefTRIAXone 1,000 MG in SODIUM CHLORIDE 0.9% 100 ML IV SCH (17:51)
[2021-08-28] MEDS: metroNIDAZOLE INJ 500 MG/100 ML PREMIX IV SCH (18:10)
[2021-08-28 21:05] LABS: Barbiturates Screen,Urine Negative (Negative); Benzodiazepines Screen,Urine Negative (Negative); Cannabinoid Screen,Urine Positive (Negative); Opiate Screen,Urine Negative (Negative); Phencyclidine Screen,Urine Negative (Negative)
[2021-08-28] MEDS ORDERED: LORazepam 2 MG/1 ML VIAL IV ONE (21:41)
[2021-08-28 21:51] LABS: Hematocrit 44.7 VOL% (35.7-47.0)
[2021-08-28 21:52] LABS: Hemoglobin 13.9 GM/DL (12.0-16.0)
[2021-08-28] MEDS: LACTATED RINGERS 1,000 ML IV SCH (21:53)
[2021-08-29] MEDS ORDERED: LORazepam 2 MG/1 ML VIAL IV ONE (00:14)
[2021-08-29] MEDS: metroNIDAZOLE INJ 500 MG/100 ML PREMIX IV SCH ×5 (00:37→23:37)
[2021-08-29] MEDS ORDERED: HYDROCORTISONE 100 MG VIAL IV SCH (01:00)
[2021-08-29 01:53] LABS: Basophils % 0.4 % (0.0-0.8); Hemoglobin 12.8 GM/DL (12.0-16.0); Immature Granulocytes % 1.1 %; Immature Granulocytes Absolute 0.09 #; Lymphocytes # 1.3 10*3/uL (1.4-4.0); Lymphocytes % 15.9 % (21.3-54.2); Mean Corpuscular Volume 88.3 FL (87-102); Mean Platelet Volume 10.8 FL (9.6-12.0); Monocytes % 6.3 % (1.7-12.7); Neutrophils % 76.3 % (38.7-73.9); Platelet Count 155 T/CUMM (130-400); Red Blood Count 4.53 MC/CUMM (3.8-5.5); Red Cell Distribution Width 19.9 % (9.3-17.3); White Blood Count 8.3 T/CUMM (4-12)
[2021-08-29] MEDS ORDERED: SODIUM CHLORIDE 0.9% 1,000 ML IV ONE (02:04)
[2021-08-29 02:12] LABS: Albumin 1.3 G/DL (3.4-5.0); Bilirubin,Total 1.4 MG/DL (0.20-1.00); Calcium 7.8 MG/DL (8.5-10.1); Osmolality,Calculated 272.8 MOS/KG (273-304); Total Protein 5.3 G/DL (6.4-8.2)
[2021-08-29] MEDS: POTASSIUM CHLORIDE RIDER 10 MEQ/100 ML PREMIX IV PRN ×5 (02:21→06:37)
[2021-08-29] MEDS: LACTATED RINGERS 1,000 ML IV SCH ×6 (04:55→21:43)
[2021-08-29] MEDS ORDERED: ALBUMIN 25% 25 GM/100 ML VIAL IV ONE (05:02)
[2021-08-29] MEDS ORDERED: NOREPINEPHRINE 8 MG in SODIUM CHLORIDE 0.9% 242 ML IV PRN (05:03)
[2021-08-29] MEDS: HYDROCORTISONE 100 MG VIAL IV SCH ×2 (08:55→20:17)
[2021-08-29] MEDS ORDERED: FAMOTIDINE 20 MG/2 ML VIAL IV SCH (09:00)
[2021-08-29] MEDS ORDERED: LORazepam 1 MG TABLET PO SCH (09:00)
[2021-08-29] MEDS: PANTOPRAZOLE 40 MG VIAL IV SCH ×2 (09:06→20:27)
[2021-08-29] MEDS: PHYTONADIONE 10 MG/1 ML AMP SUBCUT SCH (09:07)
[2021-08-29] MEDS ORDERED: LACTATED RINGERS 1,000 ML IV SCH (11:00)
[2021-08-29 11:30] LABS: Hematocrit 39.1 VOL% (35.7-47.0); Hemoglobin 12.5 GM/DL (12.0-16.0)
[2021-08-29 11:39] LABS: INR 1.9; PT Patient Result 20.4 SECS (10.5-12.0)
[2021-08-29] MEDS ORDERED: ROCURONIUM 50 MG/5 ML VIAL IV ONE (12:12)
[2021-08-29] MEDS ORDERED: LIDOCAINE 2% 5 ML VIAL ONE (12:12)
[2021-08-29] MEDS ORDERED: fentaNYL 100 MCG/2 ML VIAL ONE (12:12)
[2021-08-29] MEDS ORDERED: ETOMIDATE 40 MG/20 ML VIAL IV ONE (12:12)
[2021-08-29] MEDS ORDERED: MIDAZOLAM 2 MG/2 ML VIAL ONE ×2 (12:12→13:11)
[2021-08-29] MEDS ORDERED: SUCCINYLCHOLINE 200 MG/10 ML VIAL ONE (12:12)
[2021-08-29] MEDS ORDERED: MIDAZOLAM 10 MG/2 ML VIAL ONE (12:19)
[2021-08-29] MEDS ORDERED: MIDAZOLAM 2 MG/2 ML VIAL IV ONE (13:10)
[2021-08-29] MEDS ORDERED: LORazepam 2 MG/1 ML VIAL ONE (13:12)
[2021-08-29 13:29] LABS: ABG Base Excess -8.8 MMOL/L (-2.5-2.5); ABG HCO3 17.5 MMOL/L (20-26); ABG Oxygen Saturation 99.2 % (95-100); ABG PCO2 44.6 MM HG (35-48); ABG PH 7.233 (7.35-7.45); ABG TCO2 16.9 MMOL/L (23-27); Pt O2 Delivery Device Ventilator
[2021-08-29] MEDS ORDERED: LORazepam 1 MG TABLET NG SCH (13:30)
[2021-08-29] MEDS: LORazepam 2 MG/1 ML VIAL IV PRN (13:35)
[2021-08-29] MEDS: DEXMEDETOMIDINE 200 MCG in SODIUM CHLORIDE 0.9% 48 ML IV PRN ×2 (14:44→20:27)
[2021-08-29] MEDS: DESITIN 4OZ/NYSTATIN 15 GRAM MIXTURE PASTE TOP SCH ×2 (17:20→20:27)
[2021-08-29] MEDS: cefTRIAXone 1,000 MG in SODIUM CHLORIDE 0.9% 100 ML IV SCH (17:50)
[2021-08-29] MEDS: POTASSIUM CHLORIDE 20 MEQ TABLET PO SCH (18:32)
[2021-08-30 03:36] LABS: ABG Base Excess -7.2 MMOL/L (-2.5-2.5); ABG HCO3 18.6 MMOL/L (20-26); ABG Oxygen Saturation 98.8 % (95-100); ABG PCO2 29.8 MM HG (35-48); ABG PH 7.366 (7.35-7.45); ABG TCO2 15.2 MMOL/L (23-27)
[2021-08-30 04:54] LABS: Basophils % 0.1 % (0.0-0.8); Hematocrit 37.2 VOL% (35.7-47.0); Hemoglobin 11.5 GM/DL (12.0-16.0); Immature Granulocytes % 0.3 %; Immature Granulocytes Absolute 0.03 #; Lymphocytes # 1.6 10*3/uL (1.4-4.0); Lymphocytes % 16.9 % (21.3-54.2); Mean Corpuscular HGB Conc 30.9 GM/DL (32-36); Mean Corpuscular Volume 91.4 FL (87-102); Mean Platelet Volume 11.3 FL (9.6-12.0); Monocytes % 4.9 % (1.7-12.7); Neutrophils % 77.8 % (38.7-73.9); Platelet Count 143 T/CUMM (130-400); Red Blood Count 4.07 MC/CUMM (3.8-5.5); Red Cell Distribution Width 19.8 % (9.3-17.3); White Blood Count 9.7 T/CUMM (4-12)
[2021-08-30 05:20] LABS: Band Neutrophils 1 % (0-10); Calcium 8.3 MG/DL (8.5-10.1); Lymphocytes 8 % (20-55); Osmolality,Calculated 277.5 MOS/KG (273-304); Platelet Estimate Normal; Potassium 4.1 MMOL/L (3.5-5.1); Segmented Neutrophils 86 % (50-85); Total Cells Counted 100
[2021-08-30 05:20] LABS: INR 1.4; PT Patient Result 15.1 SECS (10.5-12.0)
[2021-08-30] MEDS: LACTATED RINGERS 1,000 ML IV SCH ×2 (05:27→15:31)
[2021-08-30] MEDS: metroNIDAZOLE INJ 500 MG/100 ML PREMIX IV SCH ×3 (05:28→17:49)
[2021-08-30] MEDS: PANTOPRAZOLE 40 MG VIAL IV SCH ×2 (08:40→20:10)
[2021-08-30] MEDS: PHYTONADIONE 10 MG/1 ML AMP SUBCUT SCH (08:44)
[2021-08-30] MEDS: HYDROCORTISONE 100 MG VIAL IV SCH ×2 (08:44→20:10)
[2021-08-30] MEDS: DESITIN 4OZ/NYSTATIN 15 GRAM MIXTURE PASTE TOP SCH ×2 (09:38→20:54)
[2021-08-30] MEDS: DEXMEDETOMIDINE 200 MCG in SODIUM CHLORIDE 0.9% 48 ML IV PRN (14:45)
[2021-08-30] MEDS: cefTRIAXone 1,000 MG in SODIUM CHLORIDE 0.9% 100 ML IV SCH (17:49)
[2021-08-30] MEDS ORDERED: ALBUMIN 5% 12.5 GM/250 ML VIAL IV ONE ×2 (19:40→20:28)
[2021-08-30] MEDS ORDERED: LACTATED RINGERS 1,000 ML IV SCH (19:40)
[2021-08-31] MEDS: metroNIDAZOLE INJ 500 MG/100 ML PREMIX IV SCH ×5 (00:10→23:36)
[2021-08-31] MEDS: LACTATED RINGERS 1,000 ML IV SCH ×3 (03:00→20:40)
[2021-08-31 03:32] LABS: ABG HCO3 18.7 MMOL/L (20-26); ABG Oxygen Saturation 96.6 % (95-100); ABG PCO2 28.3 MM HG (35-48); ABG PH 7.384 (7.35-7.45); ABG PO2 85.5 MM HG (80-95); ABG TCO2 15.2 MMOL/L (23-27)
[2021-08-31 04:29] LABS: Basophils % 0.1 % (0.0-0.8); Hematocrit 35.6 VOL% (35.7-47.0); Immature Granulocytes % 0.7 %; Immature Granulocytes Absolute 0.06 #; Lymphocytes # 1.3 10*3/uL (1.4-4.0); Mean Corpuscular HGB Conc 30.9 GM/DL (32-36); Mean Corpuscular Volume 92.5 FL (87-102); Mean Platelet Volume 11.6 FL (9.6-12.0); Monocytes % 5.3 % (1.7-12.7); Neutrophils % 79.9 % (38.7-73.9); Red Blood Count 3.85 MC/CUMM (3.8-5.5); Red Cell Distribution Width 19.6 % (9.3-17.3)
[2021-08-31 04:34] LABS: Platelet Count 113 T/CUMM (130-400)
[2021-08-31 04:57] LABS: Calcium 7.1 MG/DL (8.5-10.1); Osmolality,Calculated 279.4 MOS/KG (273-304); Potassium 3.5 MMOL/L (3.5-5.1)
[2021-08-31] MEDS: HYDROCORTISONE 100 MG VIAL IV SCH ×2 (08:13→20:23)
[2021-08-31] MEDS: PANTOPRAZOLE 40 MG VIAL IV SCH ×2 (08:17→20:23)
[2021-08-31] MEDS: POTASSIUM CHLORIDE RIDER 10 MEQ/100 ML PREMIX IV PRN (08:17)
[2021-08-31 09:23] LABS: INR 1.4; PT Patient Result 15.5 SECS (10.5-12.0)
[2021-08-31] MEDS: DESITIN 4OZ/NYSTATIN 15 GRAM MIXTURE PASTE TOP SCH ×2 (09:49→20:24)
[2021-08-31] MEDS: DEXMEDETOMIDINE 200 MCG in SODIUM CHLORIDE 0.9% 48 ML IV PRN (11:25)
[2021-08-31] MEDS ORDERED: ALBUMIN 5% 12.5 GM/250 ML VIAL IV ONE (12:01)
[2021-08-31] MEDS ORDERED: SODIUM BICARBONATE 50 MEQ/50 ML VIAL IV ONE (12:01)
[2021-08-31] MEDS ORDERED: MAGNESIUM SULF RIDER 4 GM/100 ML PREMIX IV ONE (12:08)
[2021-08-31] MEDS: cefTRIAXone 1,000 MG in SODIUM CHLORIDE 0.9% 100 ML IV SCH (17:06)
[2021-08-31] MEDS: DEXMEDETOMIDINE 400 MCG in SODIUM CHLORIDE 0.9% 96 ML IV PRN (21:52)
[2021-09-01] MEDS: LACTATED RINGERS 1,000 ML IV SCH ×5 (02:57→19:50)
[2021-09-01] MEDS: LORazepam 2 MG/1 ML VIAL IV PRN ×3 (04:00→18:19)
[2021-09-01 04:51] LABS: ABG Base Excess -4.8 MMOL/L (-2.5-2.5); ABG HCO3 20.5 MMOL/L (20-26); ABG PH 7.406 (7.35-7.45); ABG TCO2 16.7 MMOL/L (23-27)
[2021-09-01 05:14] LABS: Basophils % 0.1 % (0.0-0.8); Hematocrit 36.6 VOL% (35.7-47.0); Hemoglobin 11.6 GM/DL (12.0-16.0); Immature Granulocytes % 0.8 %; Immature Granulocytes Absolute 0.07 #; Lymphocytes # 0.8 10*3/uL (1.4-4.0); Lymphocytes % 9.4 % (21.3-54.2); Mean Corpuscular HGB Conc 31.7 GM/DL (32-36); Mean Corpuscular Volume 90.6 FL (87-102); Mean Platelet Volume 12.8 FL (9.6-12.0); Monocytes % 4.2 % (1.7-12.7); Neutrophils % 85.5 % (38.7-73.9); Red Blood Count 4.04 MC/CUMM (3.8-5.5); Red Cell Distribution Width 19.9 % (9.3-17.3); White Blood Count 8.4 T/CUMM (4-12)
[2021-09-01 05:19] LABS: Platelet Count 99 T/CUMM (130-400)
[2021-09-01 05:21] LABS: INR 1.3; PT Patient Result 14.5 SECS (10.5-12.0)
[2021-09-01 05:30] LABS: Platelet Estimate Decreased
[2021-09-01 05:31] LABS: Hypochromasia 1+; Microcytosis 1+
[2021-09-01 05:43] LABS: Calcium 8.2 MG/DL (8.5-10.1); Osmolality,Calculated 281.4 MOS/KG (273-304); Potassium 4.1 MMOL/L (3.5-5.1)
[2021-09-01] MEDS: metroNIDAZOLE INJ 500 MG/100 ML PREMIX IV SCH ×2 (06:00→11:08)
[2021-09-01] MEDS: HYDROCORTISONE 100 MG VIAL IV SCH ×2 (09:19→20:34)
[2021-09-01] MEDS: PANTOPRAZOLE 40 MG VIAL IV SCH ×2 (09:19→20:34)
[2021-09-01] MEDS: DESITIN 4OZ/NYSTATIN 15 GRAM MIXTURE PASTE TOP SCH ×2 (09:19→20:34)
[2021-09-01 10:03] LABS: Albumin 1.9 G/DL (3.4-5.0); Bilirubin,Direct 0.25 MG/DL (0.0-0.20); Bilirubin,Indirect 0.5 MG/DL (0.0-1.0); Bilirubin,Total 0.7 MG/DL (0.20-1.00); Total Protein 5.3 G/DL (6.4-8.2)
[2021-09-01] MEDS: cefTRIAXone 1,000 MG in SODIUM CHLORIDE 0.9% 100 ML IV SCH (17:58)
[2021-09-02 03:50] LABS: ABG Base Excess -1.2 MMOL/L (-2.5-2.5); ABG HCO3 23.4 MMOL/L (20-26); ABG Oxygen Saturation 99.3 % (95-100); ABG PCO2 36.5 MM HG (35-48); ABG PH 7.408 (7.35-7.45); ABG TCO2 20.5 MMOL/L (23-27)
[2021-09-02] MEDS: DEXMEDETOMIDINE 400 MCG in SODIUM CHLORIDE 0.9% 96 ML IV PRN ×2 (05:30→18:15)
[2021-09-02 05:51] LABS: Basophils % 0.3 % (0.0-0.8); Hematocrit 37.8 VOL% (35.7-47.0); Hemoglobin 11.9 GM/DL (12.0-16.0); Immature Granulocytes % 0.9 %; Immature Granulocytes Absolute 0.07 #; Lymphocytes # 0.9 10*3/uL (1.4-4.0); Lymphocytes % 12.1 % (21.3-54.2); Mean Corpuscular HGB Conc 31.5 GM/DL (32-36); Mean Corpuscular Volume 91.5 FL (87-102); Mean Platelet Volume 12.7 FL (9.6-12.0); Monocytes % 7.7 % (1.7-12.7); Platelet Count 105 T/CUMM (130-400); Red Blood Count 4.13 MC/CUMM (3.8-5.5); Red Cell Distribution Width 19.9 % (9.3-17.3); White Blood Count 7.8 T/CUMM (4-12)
[2021-09-02] MEDS: LACTATED RINGERS 1,000 ML IV SCH ×4 (05:59→21:15)
[2021-09-02 06:15] LABS: Albumin 1.6 G/DL (3.4-5.0); Bilirubin,Total 0.7 MG/DL (0.20-1.00); Calcium 8.1 MG/DL (8.5-10.1); Osmolality,Calculated 284.4 MOS/KG (273-304); Total Protein 4.9 G/DL (6.4-8.2)
[2021-09-02] MEDS: DESITIN 4OZ/NYSTATIN 15 GRAM MIXTURE PASTE TOP SCH ×2 (09:22→20:59)
[2021-09-02] MEDS: PANTOPRAZOLE 40 MG VIAL IV SCH ×2 (09:22→20:53)
[2021-09-02] MEDS: HYDROCORTISONE 100 MG VIAL IV SCH ×2 (09:22→20:50)
[2021-09-02] MEDS ORDERED: GLUCAGON 1 MG VIAL IM PRN (09:27)
[2021-09-02] MEDS ORDERED: DEXTROSE 50% 25 GM/50 ML VIAL IV PRN (09:27)
[2021-09-02] MEDS: ALBUMIN 25% 25 GM/100 ML VIAL IV SCH ×2 (10:34→17:53)
[2021-09-02] MEDS ORDERED: POTASSIUM PHOSPHATE 30 MMOL in SODIUM CHLORIDE 0.9% 250 ML IV ONE (11:00)
[2021-09-02] MEDS: INSULIN REGULAR 100 UNIT/ML SUBCUT SCH ×2 (12:16→18:25)
[2021-09-02] MEDS: LORazepam 2 MG/1 ML VIAL IV PRN ×2 (14:05)
[2021-09-02] MEDS: cefTRIAXone 1,000 MG in SODIUM CHLORIDE 0.9% 100 ML IV SCH (17:04)
[2021-09-02] MEDS ORDERED: MORPHINE 2 MG/1 ML SYRINGE IV ONE (17:11)
[2021-09-02] MEDS ORDERED: LORazepam 2 MG/1 ML VIAL IV ONE (17:11)
[2021-09-03] MEDS: INSULIN REGULAR 100 UNIT/ML SUBCUT SCH ×5 (00:37→23:42)
[2021-09-03] MEDS: ALBUMIN 25% 25 GM/100 ML VIAL IV SCH (00:37)
[2021-09-03] MEDS: LORazepam 2 MG/1 ML VIAL IV PRN ×2 (03:20→11:43)
[2021-09-03 04:14] LABS: ABG HCO3 22.1 MMOL/L (20-26); ABG Oxygen Saturation 98.4 % (95-100); ABG PCO2 35.2 MM HG (35-48); ABG PH 7.415 (7.35-7.45); ABG PO2 131.8 MM HG (80-95); ABG TCO2 23.1 MMOL/L (23-27)
[2021-09-03 05:49] LABS: Hematocrit 30.8 VOL% (35.7-47.0); Hemoglobin 9.6 GM/DL (12.0-16.0); Immature Granulocytes % 2.4 %; Immature Granulocytes Absolute 0.13 #; Lymphocytes # 0.7 10*3/uL (1.4-4.0); Lymphocytes % 13.7 % (21.3-54.2); Mean Corpuscular HGB Conc 31.2 GM/DL (32-36); Mean Corpuscular Volume 91.9 FL (87-102); Mean Platelet Volume 12.9 FL (9.6-12.0); NRBC # 0.02 10*3/uL; Neutrophils % 72.9 % (38.7-73.9); Red Blood Count 3.35 MC/CUMM (3.8-5.5); Red Cell Distribution Width 19.3 % (9.3-17.3); White Blood Count 5.3 T/CUMM (4-12)
[2021-09-03 06:04] LABS: Albumin 2.9 G/DL (3.4-5.0); Bilirubin,Total 0.6 MG/DL (0.20-1.00); Osmolality,Calculated 287.1 MOS/KG (273-304); Potassium 4.2 MMOL/L (3.5-5.1); Total Protein 5.2 G/DL (6.4-8.2)
[2021-09-03 06:14] LABS: Platelet Count 88 T/CUMM (130-400)
[2021-09-03 06:42] LABS: Hypochromasia 1+; Lymphocytes 17 % (20-55); Microcytosis 1+; Platelet Estimate Decreased; Segmented Neutrophils 74 % (50-85); Total Cells Counted 100
[2021-09-03] MEDS: HYDROCORTISONE 100 MG VIAL IV SCH ×2 (08:15→20:47)
[2021-09-03] MEDS: PANTOPRAZOLE 40 MG VIAL IV SCH ×2 (08:16→20:50)
[2021-09-03] MEDS: DESITIN 4OZ/NYSTATIN 15 GRAM MIXTURE PASTE TOP SCH ×2 (08:53→21:14)
[2021-09-03] MEDS: LACTATED RINGERS 1,000 ML IV SCH ×2 (13:09→17:05)
[2021-09-03] MEDS: DEXMEDETOMIDINE 400 MCG in SODIUM CHLORIDE 0.9% 96 ML IV PRN (13:18)
[2021-09-03] MEDS ORDERED: DIGOXIN 0.5 MG/2 ML AMP IV ONE (13:31)
[2021-09-03] MEDS: cefTRIAXone 1,000 MG in SODIUM CHLORIDE 0.9% 100 ML IV SCH (17:05)
[2021-09-04] MEDS: LORazepam 2 MG/1 ML VIAL IV PRN ×4 (01:41→19:50)
[2021-09-04] MEDS: DEXMEDETOMIDINE 400 MCG in SODIUM CHLORIDE 0.9% 96 ML IV PRN (01:42)
[2021-09-04 05:11] LABS: Basophils % 0.1 % (0.0-0.8); Hematocrit 32.1 VOL% (35.7-47.0); Hemoglobin 10.2 GM/DL (12.0-16.0); Immature Granulocytes % 4.1 %; Immature Granulocytes Absolute 0.28 #; Lymphocytes # 1.2 10*3/uL (1.4-4.0); Mean Corpuscular HGB Conc 31.8 GM/DL (32-36); Mean Corpuscular Volume 91.7 FL (87-102); Mean Platelet Volume 12.6 FL (9.6-12.0); Monocytes % 15.4 % (1.7-12.7); NRBC # 0.02 10*3/uL; Neutrophils % 62.4 % (38.7-73.9); Platelet Count 93 T/CUMM (130-400); Red Cell Distribution Width 19.9 % (9.3-17.3); White Blood Count 6.8 T/CUMM (4-12)
[2021-09-04 05:30] LABS: Albumin 2.3 G/DL (3.4-5.0); Calcium 7.5 MG/DL (8.5-10.1); Potassium 4.6 MMOL/L (3.5-5.1); Total Protein 4.9 G/DL (6.4-8.2)
[2021-09-04 05:31] LABS: Hypochromasia 1+; Microcytosis 1+; Platelet Estimate Decreased
[2021-09-04] MEDS: INSULIN REGULAR 100 UNIT/ML SUBCUT SCH ×3 (06:19→18:12)
[2021-09-04] MEDS: DESITIN 4OZ/NYSTATIN 15 GRAM MIXTURE PASTE TOP SCH ×2 (08:47→21:26)
[2021-09-04] MEDS: HYDROCORTISONE 100 MG VIAL IV SCH (08:47)
[2021-09-04] MEDS ORDERED: METOPROLOL TARTRATE 5 MG/5 ML VIAL IV ONE ×2 (09:07→09:30)
[2021-09-04] MEDS: PANTOPRAZOLE 40 MG VIAL IV SCH ×2 (09:17→21:25)
[2021-09-04] MEDS: SOTALOL 80 MG TABLET PO SCH ×3 (09:21→23:08)
[2021-09-04] MEDS: QUEtiapine 25 MG TABLET PO SCH ×3 (09:21→23:08)
[2021-09-04] MEDS: cefTRIAXone 1,000 MG in SODIUM CHLORIDE 0.9% 100 ML IV SCH (17:22)
[2021-09-04] MEDS: GABAPENTIN 300 MG CAPSULE PO SCH (21:23)
[2021-09-04] MEDS ORDERED: LEVOTHYROXINE 50 MCG TABLET PO SCH (22:03)
[2021-09-04] MEDS ORDERED: GABAPENTIN 300 MG CAPSULE PO SCH (22:03)
[2021-09-05] MEDS: INSULIN REGULAR 100 UNIT/ML SUBCUT SCH ×5 (00:36→23:45)
[2021-09-05] MEDS: LORazepam 2 MG/1 ML VIAL IV PRN (00:54)
[2021-09-05] MEDS: LEVOTHYROXINE 50 MCG TABLET PO SCH (06:18)
[2021-09-05 06:57] LABS: Basophils # 0.1 10*3/uL (0.0-0.2); Basophils % 0.4 % (0.0-0.8); Eosinophils # 0.3 10*3/uL (0.0-0.87); Eosinophils % 2.6 % (0.00-10.9); Hematocrit 35.9 VOL% (35.7-47.0); Hemoglobin 11.3 GM/DL (12.0-16.0); Immature Granulocytes % 4.8 %; Immature Granulocytes Absolute 0.54 #; Lymphocytes # 3.1 10*3/uL (1.4-4.0); Lymphocytes % 27.8 % (21.3-54.2); Mean Corpuscular HGB Conc 31.5 GM/DL (32-36); Mean Corpuscular Volume 91.6 FL (87-102); Mean Platelet Volume 10.7 FL (9.6-12.0); Monocytes % 15.5 % (1.7-12.7); NRBC # 0.04 10*3/uL; Neutrophils % 48.9 % (38.7-73.9); Red Blood Count 3.92 MC/CUMM (3.8-5.5); Red Cell Distribution Width 20.4 % (9.3-17.3); White Blood Count 11.2 T/CUMM (4-12)
[2021-09-05 06:59] LABS: Platelet Count 116 T/CUMM (130-400)
[2021-09-05 07:19] LABS: Bilirubin,Total 0.8 MG/DL (0.20-1.00); Osmolality,Calculated 285.7 MOS/KG (273-304); Potassium 4.2 MMOL/L (3.5-5.1)
[2021-09-05 07:21] LABS: Eosinophils 2 % (0-10); Hypochromasia 1+; Lymphocytes 25 % (20-55); Microcytosis 1+; Nucleated Red Blood Cells 1 (0-5); Platelet Estimate Decreased; Segmented Neutrophils 61 % (50-85); Total Cells Counted 100
[2021-09-05] MEDS: PANTOPRAZOLE 40 MG VIAL IV SCH ×2 (08:26→20:29)
[2021-09-05] MEDS: SOTALOL 80 MG TABLET PO SCH ×3 (08:26→20:29)
[2021-09-05] MEDS: FOLIC ACID 1 MG TABLET PO SCH (08:26)
[2021-09-05] MEDS: QUEtiapine 25 MG TABLET PO SCH ×4 (08:27→21:55)
[2021-09-05 08:39] LABS: Free T4 (Free Thyroxine) 1.06 NG/DL (0.76-1.46)
[2021-09-05] MEDS: DESITIN 4OZ/NYSTATIN 15 GRAM MIXTURE PASTE TOP SCH ×2 (09:12→21:56)
[2021-09-05 10:27] LABS: Bilirubin,Urine Negative (Negative); Blood, Urine Moderate mg/dL (Negative); Glucose,Urine (UA) Negative (Negative); Hyaline Casts,Urine 2 /LPF (0-3); Ketones,Urine Negative (Negative); Mucus,Urine Occasional /LPF (Occasional); Nitrite,Urine Negative (Negative); Protein,Urine Negative; RBC,Urine 62 /HPF (0-4); Urine Appearance Slightly Hazy (Clear); Urine Color Amber (Yellow); Urine Urobilinogen < 2.0 EU/DL (0.2-1.0)
[2021-09-05] MEDS: SODIUM CHLORIDE 0.9% 1,000 ML IV SCH (12:07)
[2021-09-05] MEDS ORDERED: ALBUMIN 25% 12.5 GM/50 ML VIAL IV ONE (12:31)
[2021-09-05] MEDS: cefTRIAXone 1,000 MG in SODIUM CHLORIDE 0.9% 100 ML IV SCH (17:49)
[2021-09-05] MEDS: GABAPENTIN 300 MG CAPSULE PO SCH (20:29)
[2021-09-05] MEDS: ONDANSETRON 4 MG/2 ML VIAL IV PRN (20:30)
[2021-09-06] MEDS: SODIUM CHLORIDE 0.9% 1,000 ML IV SCH ×2 (01:55→14:40)
[2021-09-06] MEDS: LORazepam 2 MG/1 ML VIAL IV PRN (03:01)
[2021-09-06 05:12] LABS: Basophils % 0.2 % (0.0-0.8); Eosinophils # 0.2 10*3/uL (0.0-0.87); Eosinophils % 1.8 % (0.00-10.9); Hematocrit 33.6 VOL% (35.7-47.0); Hemoglobin 10.6 GM/DL (12.0-16.0); Immature Granulocytes % 3.2 %; Immature Granulocytes Absolute 0.36 #; Lymphocytes # 2.7 10*3/uL (1.4-4.0); Lymphocytes % 23.3 % (21.3-54.2); Mean Corpuscular HGB Conc 31.5 GM/DL (32-36); Mean Corpuscular Volume 92.6 FL (87-102); Mean Platelet Volume 11.1 FL (9.6-12.0); Monocytes % 13.5 % (1.7-12.7); Platelet Count 138 T/CUMM (130-400); Red Blood Count 3.63 MC/CUMM (3.8-5.5); Red Cell Distribution Width 20.2 % (9.3-17.3); White Blood Count 11.4 T/CUMM (4-12)
[2021-09-06] MEDS: LEVOTHYROXINE 50 MCG TABLET PO SCH (05:48)
[2021-09-06 05:56] LABS: Bilirubin,Total 0.7 MG/DL (0.20-1.00); Osmolality,Calculated 285.7 MOS/KG (273-304); Potassium 3.8 MMOL/L (3.5-5.1); Total Protein 5.1 G/DL (6.4-8.2)
[2021-09-06] MEDS ORDERED: ALBUMIN 25% 12.5 GM/50 ML VIAL IV ONE (09:00)
[2021-09-06] MEDS: QUEtiapine 25 MG TABLET PO SCH ×4 (09:13→21:03)
[2021-09-06] MEDS: FOLIC ACID 1 MG TABLET PO SCH (09:13)
[2021-09-06] MEDS: SOTALOL 80 MG TABLET PO SCH ×2 (09:13→20:10)
[2021-09-06] MEDS: PANTOPRAZOLE 40 MG VIAL IV SCH ×2 (09:14→20:14)
[2021-09-06] MEDS: INSULIN REGULAR 100 UNIT/ML SUBCUT SCH ×4 (09:19→20:44)
[2021-09-06] MEDS ORDERED: LACTULOSE 20 GM/30 ML UDCUP PO PRN (11:11)
[2021-09-06] MEDS: DESITIN 4OZ/NYSTATIN 15 GRAM MIXTURE PASTE TOP SCH ×2 (14:41→20:10)
[2021-09-06] MEDS: cefTRIAXone 1,000 MG in SODIUM CHLORIDE 0.9% 100 ML IV SCH ×2 (17:50→21:13)
[2021-09-06] MEDS: GABAPENTIN 300 MG CAPSULE PO SCH (20:10)
[2021-09-06] MEDS: ONDANSETRON 4 MG/2 ML VIAL IV PRN (20:10)
[2021-09-07] MEDS: ONDANSETRON 4 MG/2 ML VIAL IV PRN (03:50)
[2021-09-07] MEDS: SODIUM CHLORIDE 0.9% 1,000 ML IV SCH ×2 (03:50→17:12)
[2021-09-07 04:52] LABS: Basophils % 0.1 % (0.0-0.8); Eosinophils # 0.1 10*3/uL (0.0-0.87); Eosinophils % 1.2 % (0.00-10.9); Hematocrit 31.8 VOL% (35.7-47.0); Hemoglobin 9.8 GM/DL (12.0-16.0); Immature Granulocytes % 1.7 %; Immature Granulocytes Absolute 0.17 #; Lymphocytes # 2.8 10*3/uL (1.4-4.0); Lymphocytes % 27.7 % (21.3-54.2); Mean Corpuscular HGB Conc 30.8 GM/DL (32-36); Mean Corpuscular Volume 93.3 FL (87-102); Mean Platelet Volume 10.7 FL (9.6-12.0); Monocytes % 12.1 % (1.7-12.7); NRBC # 0.02 10*3/uL; Neutrophils % 57.2 % (38.7-73.9); Platelet Count 148 T/CUMM (130-400); Red Blood Count 3.41 MC/CUMM (3.8-5.5); Red Cell Distribution Width 20.5 % (9.3-17.3); White Blood Count 9.9 T/CUMM (4-12)
[2021-09-07 05:09] LABS: Calcium 7.8 MG/DL (8.5-10.1); Osmolality,Calculated 286.7 MOS/KG (273-304); Potassium 3.6 MMOL/L (3.5-5.1)
[2021-09-07 05:18] LABS: Band Neutrophils 1 % (0-10); Eosinophils 1 % (0-10); Lymphocytes 24 % (20-55); Platelet Estimate Normal; Segmented Neutrophils 62 % (50-85); Total Cells Counted 100
[2021-09-07 05:19] LABS: Polychromasia Few
[2021-09-07 05:20] LABS: Anisocytosis 2+; Microcytosis 1+; Target Cells Few
[2021-09-07] MEDS: LEVOTHYROXINE 50 MCG TABLET PO SCH (05:53)
[2021-09-07] MEDS: INSULIN REGULAR 100 UNIT/ML SUBCUT SCH ×4 (07:28→20:44)
[2021-09-07] MEDS: SOTALOL 80 MG TABLET PO SCH ×2 (09:43→20:40)
[2021-09-07] MEDS: PANTOPRAZOLE 40 MG VIAL IV SCH ×2 (09:43→20:40)
[2021-09-07] MEDS: QUEtiapine 25 MG TABLET PO SCH ×4 (09:43→20:49)
[2021-09-07] MEDS: DESITIN 4OZ/NYSTATIN 15 GRAM MIXTURE PASTE TOP SCH ×2 (09:43→20:49)
[2021-09-07] MEDS: FOLIC ACID 1 MG TABLET PO SCH (09:43)
[2021-09-07] MEDS: GABAPENTIN 300 MG CAPSULE PO SCH (20:40)
[2021-09-07] MEDS: cefTRIAXone 1,000 MG in SODIUM CHLORIDE 0.9% 100 ML IV SCH (20:44)
[2021-09-08 04:07] LABS: Basophils % 0.3 % (0.0-0.8); Eosinophils # 0.2 10*3/uL (0.0-0.87); Hematocrit 35.2 VOL% (35.7-47.0); Hemoglobin 10.8 GM/DL (12.0-16.0); Immature Granulocytes % 0.8 %; Immature Granulocytes Absolute 0.06 #; Lymphocytes # 2.5 10*3/uL (1.4-4.0); Lymphocytes % 32.6 % (21.3-54.2); Mean Corpuscular HGB Conc 30.7 GM/DL (32-36); Mean Corpuscular Volume 93.6 FL (87-102); Mean Platelet Volume 10.9 FL (9.6-12.0); Monocytes % 13.3 % (1.7-12.7); Platelet Count 181 T/CUMM (130-400); Red Blood Count 3.76 MC/CUMM (3.8-5.5); Red Cell Distribution Width 20.7 % (9.3-17.3); White Blood Count 7.6 T/CUMM (4-12)
[2021-09-08 04:22] LABS: INR 1.1
[2021-09-08 04:29] LABS: Albumin 1.9 G/DL (3.4-5.0); Bilirubin,Total 0.5 MG/DL (0.20-1.00); Calcium 7.8 MG/DL (8.5-10.1); Osmolality,Calculated 276.4 MOS/KG (273-304); Potassium 3.6 MMOL/L (3.5-5.1); Total Protein 5.5 G/DL (6.4-8.2)
[2021-09-08] MEDS: SODIUM CHLORIDE 0.9% 1,000 ML IV SCH (05:41)
[2021-09-08] MEDS: LEVOTHYROXINE 50 MCG TABLET PO SCH (05:45)
[2021-09-08] MEDS: INSULIN REGULAR 100 UNIT/ML SUBCUT SCH ×4 (09:55→20:40)
[2021-09-08] MEDS: SOTALOL 80 MG TABLET PO SCH ×2 (09:55→20:39)
[2021-09-08] MEDS: PANTOPRAZOLE 40 MG VIAL IV SCH ×2 (09:55→20:40)
[2021-09-08] MEDS: QUEtiapine 25 MG TABLET PO SCH ×4 (09:55→20:41)
[2021-09-08] MEDS: FOLIC ACID 1 MG TABLET PO SCH (09:55)
[2021-09-08] MEDS: DESITIN 4OZ/NYSTATIN 15 GRAM MIXTURE PASTE TOP SCH ×2 (09:55→20:41)
[2021-09-08] MEDS: GABAPENTIN 300 MG CAPSULE PO SCH (20:40)
[2021-09-08] MEDS: levETIRAcetam 500 MG TABLET PO SCH (20:40)
[2021-09-08] MEDS: cefTRIAXone 1,000 MG in SODIUM CHLORIDE 0.9% 100 ML IV SCH (20:41)
[2021-09-09] MEDS: SODIUM CHLORIDE 0.9% 1,000 ML IV SCH ×2 (00:52→17:43)
[2021-09-09] MEDS: LEVOTHYROXINE 50 MCG TABLET PO SCH (06:08)
[2021-09-09] MEDS: PANTOPRAZOLE 40 MG VIAL IV SCH ×2 (09:33→22:13)
[2021-09-09] MEDS: FOLIC ACID 1 MG TABLET PO SCH (09:34)
[2021-09-09] MEDS: SOTALOL 80 MG TABLET PO SCH ×2 (09:34→22:13)
[2021-09-09] MEDS: INSULIN REGULAR 100 UNIT/ML SUBCUT SCH ×4 (09:34→22:13)
[2021-09-09] MEDS: QUEtiapine 25 MG TABLET PO SCH ×3 (09:34→22:16)
[2021-09-09] MEDS: levETIRAcetam 500 MG TABLET PO SCH ×2 (09:34→22:13)
[2021-09-09] MEDS: DESITIN 4OZ/NYSTATIN 15 GRAM MIXTURE PASTE TOP SCH ×2 (09:35→22:16)
[2021-09-09] MEDS: GABAPENTIN 300 MG CAPSULE PO SCH (22:13)
[2021-09-09] MEDS: cefTRIAXone 1,000 MG in SODIUM CHLORIDE 0.9% 100 ML IV SCH (22:15)
[2021-09-10] MEDS: LEVOTHYROXINE 50 MCG TABLET PO SCH (06:16)
[2021-09-10 06:24] LABS: Basophils # 0.1 10*3/uL (0.0-0.2); Basophils % 1.1 % (0.0-0.8); Eosinophils # 0.1 10*3/uL (0.0-0.87); Hematocrit 30.1 VOL% (35.7-47.0); Hemoglobin 9.6 GM/DL (12.0-16.0); Immature Granulocytes % 0.6 %; Immature Granulocytes Absolute 0.05 #; Lymphocytes # 2.5 10*3/uL (1.4-4.0); Lymphocytes % 28.1 % (21.3-54.2); Mean Corpuscular HGB Conc 31.9 GM/DL (32-36); Mean Corpuscular Volume 93.8 FL (87-102); Mean Platelet Volume 10.9 FL (9.6-12.0); Monocytes % 12.2 % (1.7-12.7); Platelet Count 219 T/CUMM (130-400); Red Blood Count 3.21 MC/CUMM (3.8-5.5); Red Cell Distribution Width 20.7 % (9.3-17.3)
[2021-09-10 06:34] LABS: Blood Urea Nitrogen 5 MG/DL (7-18); Calcium 7.6 MG/DL (8.5-10.1); Carbon Dioxide 23 MMOL/L (21-32); Estimated Glom Filtration Rate 183 ML/MIN; Glucose 73 MG/DL (74-106); Sodium 143 MMOL/L (136-145)
[2021-09-10 06:51] LABS: Hypochromasia 1+; Lymphocytes 27 % (20-55); Microcytosis 1+; Platelet Estimate Adequate; Segmented Neutrophils 65 % (50-85); Total Cells Counted 100
[2021-09-10] MEDS: INSULIN REGULAR 100 UNIT/ML SUBCUT SCH ×3 (08:12→18:36)
[2021-09-10] MEDS: SODIUM CHLORIDE 0.9% 1,000 ML IV SCH ×2 (08:13→21:00)
[2021-09-10] MEDS: FOLIC ACID 1 MG TABLET PO SCH (13:40)
[2021-09-10] MEDS: levETIRAcetam 500 MG TABLET PO SCH ×2 (13:45→21:03)
[2021-09-10] MEDS: SOTALOL 80 MG TABLET PO SCH ×2 (13:45→21:03)
[2021-09-10] MEDS: PANTOPRAZOLE 40 MG VIAL IV SCH ×2 (14:17→21:04)
[2021-09-10] MEDS: QUEtiapine 25 MG TABLET PO SCH ×2 (14:21→21:03)
[2021-09-10] MEDS: DESITIN 4OZ/NYSTATIN 15 GRAM MIXTURE PASTE TOP SCH ×2 (14:21→21:04)
[2021-09-10] MEDS: GABAPENTIN 300 MG CAPSULE PO SCH (21:03)
[2021-09-10] MEDS: cefTRIAXone 1,000 MG in SODIUM CHLORIDE 0.9% 100 ML IV SCH (21:04)
[2021-09-11] MEDS: LEVOTHYROXINE 50 MCG TABLET PO SCH (06:06)
[2021-09-11] MEDS: FOLIC ACID 1 MG TABLET PO SCH (09:24)
[2021-09-11] MEDS: levETIRAcetam 500 MG TABLET PO SCH ×2 (09:24→21:18)
[2021-09-11] MEDS: QUEtiapine 25 MG TABLET PO SCH ×2 (09:24→21:18)
[2021-09-11] MEDS: SOTALOL 80 MG TABLET PO SCH ×2 (09:24→21:18)
[2021-09-11] MEDS: DESITIN 4OZ/NYSTATIN 15 GRAM MIXTURE PASTE TOP SCH ×2 (09:24→21:19)
[2021-09-11] MEDS: PANTOPRAZOLE 40 MG VIAL IV SCH ×2 (09:24→21:18)
[2021-09-11] MEDS: LORazepam 2 MG/1 ML VIAL IV ONE ×2 (16:20→18:20)
[2021-09-11] MEDS ORDERED: LORazepam 2 MG/1 ML VIAL ONE (18:20)
[2021-09-11] MEDS: SODIUM CHLORIDE 0.9% 1,000 ML IV SCH (19:12)
[2021-09-11] MEDS ORDERED: LORazepam 2 MG/1 ML VIAL IV PRN (19:25)
[2021-09-11] MEDS: cefTRIAXone 1,000 MG in SODIUM CHLORIDE 0.9% 100 ML IV SCH (21:18)
[2021-09-11] MEDS: GABAPENTIN 300 MG CAPSULE PO SCH (21:18)
[2021-09-12] MEDS: SODIUM CHLORIDE 0.9% 1,000 ML IV SCH ×3 (01:15→18:22)
[2021-09-12] MEDS: LEVOTHYROXINE 50 MCG TABLET PO SCH (07:03)
[2021-09-12] MEDS ORDERED: TUBERCULIN SKIN TEST 0.1 ML SYRINGE INTRADERM ONE (09:49)
[2021-09-12] MEDS: levETIRAcetam 500 MG TABLET PO SCH ×2 (10:07→20:29)
[2021-09-12] MEDS: FOLIC ACID 1 MG TABLET PO SCH (10:07)
[2021-09-12] MEDS: SOTALOL 80 MG TABLET PO SCH ×2 (10:07→20:29)
[2021-09-12] MEDS: QUEtiapine 25 MG TABLET PO SCH ×2 (10:08→20:29)
[2021-09-12] MEDS: PANTOPRAZOLE 40 MG VIAL IV SCH ×2 (10:10→20:31)
[2021-09-12] MEDS: DESITIN 4OZ/NYSTATIN 15 GRAM MIXTURE PASTE TOP SCH ×2 (10:11→20:32)
[2021-09-12 10:26] LABS: Calcium 7.7 MG/DL (8.5-10.1); Osmolality,Calculated 275.3 MOS/KG (273-304); Potassium 3.1 MMOL/L (3.5-5.1)
[2021-09-12] MEDS ORDERED: MAGNESIUM SULF RIDER 2 GM/50 ML PREMIX IV ONE (17:49)
[2021-09-12] MEDS: GABAPENTIN 300 MG CAPSULE PO SCH (20:29)
[2021-09-12] MEDS: POTASSIUM CHLORIDE RIDER 10 MEQ/100 ML PREMIX IV PRN ×2 (20:31→23:00)
[2021-09-13] MEDS: POTASSIUM CHLORIDE RIDER 10 MEQ/100 ML PREMIX IV PRN ×2 (00:56→04:21)
[2021-09-13 05:17] LABS: Blood Urea Nitrogen 4 MG/DL (7-18); Calcium 7.8 MG/DL (8.5-10.1); Carbon Dioxide 21 MMOL/L (21-32); Estimated Glom Filtration Rate 181 ML/MIN; Glucose 67 MG/DL (74-106); Potassium 3.3 MMOL/L (3.5-5.1); Sodium 143 MMOL/L (136-145)
[2021-09-13 05:18] LABS: Basophils # 0.2 10*3/uL (0.0-0.2); Basophils % 2.9 % (0.0-0.8); Eosinophils # 0.1 10*3/uL (0.0-0.87); Eosinophils % 0.8 % (0.00-10.9); Hematocrit 32.4 VOL% (35.7-47.0); Hemoglobin 9.7 GM/DL (12.0-16.0); Immature Granulocytes % 1.2 %; Immature Granulocytes Absolute 0.09 #; Lymphocytes # 2.2 10*3/uL (1.4-4.0); Lymphocytes % 29.9 % (21.3-54.2); Mean Corpuscular HGB Conc 29.9 GM/DL (32-36); Mean Corpuscular Volume 99.7 FL (87-102); Mean Platelet Volume 10.8 FL (9.6-12.0); Monocytes % 12.5 % (1.7-12.7); Neutrophils % 52.7 % (38.7-73.9); Red Blood Count 3.25 MC/CUMM (3.8-5.5); Red Cell Distribution Width 21.1 % (9.3-17.3); White Blood Count 7.3 T/CUMM (4-12)
[2021-09-13 05:22] LABS: Platelet Count 355 T/CUMM (130-400)
[2021-09-13 05:27] LABS: Albumin 1.5 G/DL (3.4-5.0); Bilirubin,Direct 0.15 MG/DL (0.0-0.20); Bilirubin,Indirect 0.4 MG/DL (0.0-1.0); Bilirubin,Total 0.5 MG/DL (0.20-1.00)
[2021-09-13 05:52] LABS: Hypochromasia 1+; Lymphocytes 22 % (20-55); Microcytosis 1+; Platelet Estimate Adequate; Segmented Neutrophils 69 % (50-85); Total Cells Counted 100
[2021-09-13] MEDS: LEVOTHYROXINE 50 MCG TABLET PO SCH (07:04)
[2021-09-13] MEDS: SOTALOL 80 MG TABLET PO SCH ×2 (10:32→20:41)
[2021-09-13] MEDS: FOLIC ACID 1 MG TABLET PO SCH (10:33)
[2021-09-13] MEDS: levETIRAcetam 500 MG TABLET PO SCH ×2 (10:33→20:41)
[2021-09-13] MEDS: DESITIN 4OZ/NYSTATIN 15 GRAM MIXTURE PASTE TOP SCH ×2 (10:33→20:41)
[2021-09-13] MEDS: QUEtiapine 25 MG TABLET PO SCH ×2 (10:48→20:41)
[2021-09-13] MEDS: PANTOPRAZOLE 40 MG VIAL IV SCH ×2 (10:55→20:41)
[2021-09-13] MEDS: SODIUM CHLORIDE 0.9% 1,000 ML IV SCH (11:30)
[2021-09-13] MEDS: GABAPENTIN 300 MG CAPSULE PO SCH (20:41)
[2021-09-14] MEDS: SODIUM CHLORIDE 0.9% 1,000 ML IV SCH (02:42)
[2021-09-14 05:38] LABS: Basophils # 0.2 10*3/uL (0.0-0.2); Basophils % 2.7 % (0.0-0.8); Eosinophils # 0.1 10*3/uL (0.0-0.87); Eosinophils % 1.1 % (0.00-10.9); Hematocrit 34.6 VOL% (35.7-47.0); Hemoglobin 10.7 GM/DL (12.0-16.0); Immature Granulocytes % 0.4 %; Immature Granulocytes Absolute 0.02 #; Lymphocytes # 2.2 10*3/uL (1.4-4.0); Lymphocytes % 39.4 % (21.3-54.2); Mean Corpuscular HGB Conc 30.9 GM/DL (32-36); Mean Corpuscular Volume 97.2 FL (87-102); Mean Platelet Volume 11.5 FL (9.6-12.0); Monocytes % 11.6 % (1.7-12.7); Neutrophils % 44.8 % (38.7-73.9); Platelet Count 342 T/CUMM (130-400); Red Blood Count 3.56 MC/CUMM (3.8-5.5); Red Cell Distribution Width 20.9 % (9.3-17.3); White Blood Count 5.5 T/CUMM (4-12)
[2021-09-14] MEDS: LEVOTHYROXINE 50 MCG TABLET PO SCH (06:03)
[2021-09-14 06:09] LABS: Calcium 7.8 MG/DL (8.5-10.1); Osmolality,Calculated 277.1 MOS/KG (273-304); Potassium 3.2 MMOL/L (3.5-5.1)
[2021-09-14 06:11] LABS: Hypochromasia Slight; Lymphocytes 34 % (20-55); Microcytosis Slight; Platelet Estimate Adequate; Segmented Neutrophils 59 % (50-85); Total Cells Counted 100
[2021-09-14] MEDS: levETIRAcetam 500 MG TABLET PO SCH ×2 (10:19→20:55)
[2021-09-14] MEDS: FOLIC ACID 1 MG TABLET PO SCH (10:19)
[2021-09-14] MEDS: QUEtiapine 25 MG TABLET PO SCH ×2 (10:19→20:55)
[2021-09-14] MEDS: PANTOPRAZOLE 40 MG VIAL IV SCH ×2 (10:19→20:56)
[2021-09-14] MEDS: SOTALOL 80 MG TABLET PO SCH ×2 (10:19→20:55)
[2021-09-14] MEDS: DESITIN 4OZ/NYSTATIN 15 GRAM MIXTURE PASTE TOP SCH ×2 (10:20→20:56)
[2021-09-14] MEDS: GABAPENTIN 300 MG CAPSULE PO SCH (20:55)
[2021-09-15] MEDS ORDERED: HYDROmorphone 2 MG/1 ML VIAL IV ONE (00:04)
[2021-09-15] MEDS: SODIUM CHLORIDE 0.9% 1,000 ML IV SCH ×3 (02:06→20:58)
[2021-09-15 05:09] LABS: Basophils # 0.2 10*3/uL (0.0-0.2); Basophils % 2.4 % (0.0-0.8); Eosinophils # 0.1 10*3/uL (0.0-0.87); Eosinophils % 0.8 % (0.00-10.9); Hematocrit 35.9 VOL% (35.7-47.0); Hemoglobin 11.5 GM/DL (12.0-16.0); Immature Granulocytes % 0.1 %; Immature Granulocytes Absolute 0.01 #; Lymphocytes # 2.2 10*3/uL (1.4-4.0); Lymphocytes % 29.8 % (21.3-54.2); Mean Corpuscular Volume 96.2 FL (87-102); Monocytes % 10.8 % (1.7-12.7); Neutrophils % 56.1 % (38.7-73.9); Platelet Count 411 T/CUMM (130-400); Red Blood Count 3.73 MC/CUMM (3.8-5.5); White Blood Count 7.5 T/CUMM (4-12)
[2021-09-15 05:27] LABS: Potassium 3.7 MMOL/L (3.5-5.1)
[2021-09-15] MEDS: LEVOTHYROXINE 50 MCG TABLET PO SCH (07:09)
[2021-09-15] MEDS: QUEtiapine 25 MG TABLET PO SCH ×2 (10:17→21:26)
[2021-09-15] MEDS: levETIRAcetam 500 MG TABLET PO SCH ×2 (10:18→21:26)
[2021-09-15] MEDS: SOTALOL 80 MG TABLET PO SCH ×2 (10:18→21:26)
[2021-09-15] MEDS: FOLIC ACID 1 MG TABLET PO SCH (10:18)
[2021-09-15] MEDS: DESITIN 4OZ/NYSTATIN 15 GRAM MIXTURE PASTE TOP SCH ×2 (10:21→21:28)
[2021-09-15] MEDS: PANTOPRAZOLE 40 MG VIAL IV SCH ×2 (10:21→21:27)
[2021-09-15] MEDS: FUROSEMIDE 40 MG/4 ML VIAL IV SCH (16:12)
[2021-09-15] MEDS: SPIRONOLACTONE 50 MG TABLET PO SCH (16:17)
[2021-09-15] MEDS ORDERED: ACETAMINOPHEN 325 MG TABLET PO PRN (18:12)
[2021-09-15] MEDS: GABAPENTIN 300 MG CAPSULE PO SCH (21:26)
[2021-09-16 04:59] LABS: Basophils # 0.1 10*3/uL (0.0-0.2); Basophils % 1.8 % (0.0-0.8); Eosinophils # 0.1 10*3/uL (0.0-0.87); Eosinophils % 1.4 % (0.00-10.9); Hematocrit 34.7 VOL% (35.7-47.0); Hemoglobin 11.2 GM/DL (12.0-16.0); Immature Granulocytes % 0.3 %; Immature Granulocytes Absolute 0.02 #; Lymphocytes # 2.3 10*3/uL (1.4-4.0); Lymphocytes % 35.5 % (21.3-54.2); Mean Corpuscular HGB Conc 32.3 GM/DL (32-36); Mean Corpuscular Volume 96.1 FL (87-102); Mean Platelet Volume 10.8 FL (9.6-12.0); Platelet Count 425 T/CUMM (130-400); Red Blood Count 3.61 MC/CUMM (3.8-5.5); Red Cell Distribution Width 20.7 % (9.3-17.3); White Blood Count 6.5 T/CUMM (4-12)
[2021-09-16 05:21] LABS: Albumin 1.4 G/DL (3.4-5.0); Bilirubin,Total 0.8 MG/DL (0.20-1.00); Calcium 7.9 MG/DL (8.5-10.1); Potassium 3.3 MMOL/L (3.5-5.1)
[2021-09-16] MEDS: LEVOTHYROXINE 50 MCG TABLET PO SCH (06:07)
[2021-09-16] MEDS: FOLIC ACID 1 MG TABLET PO SCH (08:36)
[2021-09-16] MEDS: SPIRONOLACTONE 50 MG TABLET PO SCH (08:36)
[2021-09-16] MEDS: SOTALOL 80 MG TABLET PO SCH ×2 (08:36→20:27)
[2021-09-16] MEDS: QUEtiapine 25 MG TABLET PO SCH ×2 (08:36→20:27)
[2021-09-16] MEDS: levETIRAcetam 500 MG TABLET PO SCH ×2 (08:37→20:27)
[2021-09-16] MEDS: PANTOPRAZOLE 40 MG VIAL IV SCH ×2 (08:38→20:27)
[2021-09-16] MEDS: FUROSEMIDE 40 MG/4 ML VIAL IV SCH ×3 (08:40→20:27)
[2021-09-16] MEDS: DESITIN 4OZ/NYSTATIN 15 GRAM MIXTURE PASTE TOP SCH ×2 (08:41→20:29)
[2021-09-16] MEDS: GABAPENTIN 300 MG CAPSULE PO SCH (20:27)
[2021-09-17 05:45] LABS: Basophils # 0.1 10*3/uL (0.0-0.2); Basophils % 1.6 % (0.0-0.8); Eosinophils # 0.1 10*3/uL (0.0-0.87); Eosinophils % 1.6 % (0.00-10.9); Hematocrit 34.4 VOL% (35.7-47.0); Hemoglobin 11.2 GM/DL (12.0-16.0); Immature Granulocytes % 0.2 %; Immature Granulocytes Absolute 0.01 #; Lymphocytes # 2.1 10*3/uL (1.4-4.0); Lymphocytes % 43.1 % (21.3-54.2); Mean Corpuscular HGB Conc 32.6 GM/DL (32-36); Mean Corpuscular Volume 94.8 FL (87-102); Mean Platelet Volume 10.1 FL (9.6-12.0); Monocytes % 14.1 % (1.7-12.7); Neutrophils % 39.4 % (38.7-73.9); Platelet Count 430 T/CUMM (130-400); Red Blood Count 3.63 MC/CUMM (3.8-5.5); Red Cell Distribution Width 20.6 % (9.3-17.3); White Blood Count 4.9 T/CUMM (4-12)
[2021-09-17] MEDS: LEVOTHYROXINE 50 MCG TABLET PO SCH (06:05)
[2021-09-17 06:26] LABS: Calcium 8.1 MG/DL (8.5-10.1); Potassium 2.8 MMOL/L (3.5-5.1)
[2021-09-17] MEDS ORDERED: MAGNESIUM SULF RIDER 4 GM/100 ML PREMIX IV ONE (07:56)
[2021-09-17] MEDS: SPIRONOLACTONE 50 MG TABLET PO SCH (09:09)
[2021-09-17] MEDS: SOTALOL 80 MG TABLET PO SCH ×2 (09:09→22:08)
[2021-09-17] MEDS: POTASSIUM CHLORIDE 20 MEQ PACK PO SCH ×2 (09:09→09:58)
[2021-09-17] MEDS: QUEtiapine 25 MG TABLET PO SCH ×2 (09:09→22:10)
[2021-09-17] MEDS: levETIRAcetam 500 MG TABLET PO SCH ×2 (09:09→22:08)
[2021-09-17] MEDS: FOLIC ACID 1 MG TABLET PO SCH (09:09)
[2021-09-17] MEDS: DESITIN 4OZ/NYSTATIN 15 GRAM MIXTURE PASTE TOP SCH ×2 (09:09→22:09)
[2021-09-17] MEDS: PANTOPRAZOLE 40 MG VIAL IV SCH ×2 (09:12→22:08)
[2021-09-17] MEDS: FUROSEMIDE 40 MG/4 ML VIAL IV SCH ×2 (09:13→22:08)
[2021-09-17] MEDS ORDERED: POTASSIUM CHLORIDE RIDER 10 MEQ/100 ML PREMIX IV SCH (12:00)
[2021-09-17 17:27] VITALS: BP 101/64
[2021-09-17 19:11] LABS: Potassium 2.8 MMOL/L (3.5-5.1)
[2021-09-17] MEDS: GABAPENTIN 300 MG CAPSULE PO SCH (22:08)
[2021-09-17] MEDS: POTASSIUM CHLORIDE RIDER 10 MEQ/100 ML PREMIX IV SCH ×2 (23:10→23:15)
[2021-09-18] MEDS: POTASSIUM CHLORIDE RIDER 10 MEQ/100 ML PREMIX IV SCH (00:44)
[2021-09-18] MEDS: LEVOTHYROXINE 50 MCG TABLET PO SCH (05:46)
[2021-09-18] MEDS: SPIRONOLACTONE 50 MG TABLET PO SCH (09:49)
[2021-09-18] MEDS: SOTALOL 80 MG TABLET PO SCH (09:49)
[2021-09-18] MEDS: QUEtiapine 25 MG TABLET PO SCH (09:50)
[2021-09-18] MEDS: FUROSEMIDE 40 MG/4 ML VIAL IV SCH (09:50)
[2021-09-18] MEDS: DESITIN 4OZ/NYSTATIN 15 GRAM MIXTURE PASTE TOP SCH (09:50)
[2021-09-18] MEDS: PANTOPRAZOLE 40 MG VIAL IV SCH (09:50)
[2021-09-18] MEDS: FOLIC ACID 1 MG TABLET PO SCH (09:50)
[2021-09-18] MEDS: levETIRAcetam 500 MG TABLET PO SCH (09:50)
== END 2021-09-18 17:30 | disposition home or self-care (01) | DRG 870 ==
LOC: EDUNIT# → EDBD → N.ED 14:35 → N.EDINP 17:25 → SUATTDRO 17:25 → N.ICU 20:16 → N.4E 09-05 23:57 → N.2W 09-15 13:00
PROVIDERS: ADMIT Internal Medicine; ATTEND Internal Medicine

== ENCOUNTER 2021-09-23 00:18 | Inpatient (IN) ==
[2021-09-23] MEDS ORDERED: SODIUM CHLORIDE 0.9% 1,000 ML IV STA ×2 (01:00→05:27)
[2021-09-23] MEDS ORDERED: PIPERACILLIN/TAZOBACTAM 3,375 MG in SODIUM CHLORIDE 0.9% 100 ML IV STA (01:00)
[2021-09-23 01:45] LABS: ABG Base Excess 0.2 MMOL/L (-2.5-2.5); ABG HCO3 24.7 MMOL/L (20-26); ABG PCO2 34.7 MM HG (35-48); ABG PH 7.445 (7.35-7.45); ABG TCO2 21.1 MMOL/L (23-27)
[2021-09-23 02:30] LABS: Basophils # 0.1 10*3/uL (0.0-0.2); Basophils % 0.3 % (0.0-0.8); Eosinophils # 0.3 10*3/uL (0.0-0.87); Eosinophils % 1.2 % (0.00-10.9); Hematocrit 37.4 VOL% (35.7-47.0); Hemoglobin 11.9 GM/DL (12.0-16.0); Immature Granulocytes Absolute 0.27 #; Lymphocytes # 2.6 10*3/uL (1.4-4.0); Lymphocytes % 9.6 % (21.3-54.2); Mean Corpuscular HGB Conc 31.8 GM/DL (32-36); Mean Corpuscular Volume 94.9 FL (87-102); Monocytes % 8.8 % (1.7-12.7); Neutrophils % 79.1 % (38.7-73.9); Platelet Count 495 T/CUMM (130-400); Red Blood Count 3.94 MC/CUMM (3.8-5.5); Red Cell Distribution Width 19.8 % (9.3-17.3); White Blood Count 27.3 T/CUMM (4-12)
[2021-09-23 02:39] LABS: Blood, Urine Negative (Negative); Glucose,Urine (UA) Negative (Negative); Hyaline Casts,Urine 264 /LPF (0-3); Ketones,Urine Negative (Negative); Mucus,Urine Many /LPF (Occasional); Nitrite,Urine Negative (Negative); Protein,Urine 100 MG/DL; RBC,Urine 4 /HPF (0-4); Urine Appearance Slightly Hazy (Clear); Urine Color Amber (Yellow); Urine Specific Gravity 1.027 (1.001-1.035); Urine Urobilinogen < 2.0 EU/DL (0.2-1.0)
[2021-09-23 02:40] LABS: Bilirubin,Urine Small mg/dL (Negative)
[2021-09-23 02:44] LABS: Barbiturates Screen,Urine Negative (Negative); Benzodiazepines Screen,Urine Negative (Negative); Cannabinoid Screen,Urine Positive (Negative); Opiate Screen,Urine Negative (Negative); Phencyclidine Screen,Urine Negative (Negative)
[2021-09-23 02:51] LABS: Alanine Aminotransferase 29 U/L (13-56); Albumin 1.7 G/DL (3.4-5.0); Alkaline Phosphatase 189 U/L (45-117); Aspartate Amino Transferase 34 U/L (0-37); Blood Urea Nitrogen 6 MG/DL (7-18); CKMB % 11.8 %; Calcium 8.3 MG/DL (8.5-10.1); Carbon Dioxide 27 MMOL/L (21-32); Estimated Glom Filtration Rate 88 ML/MIN; Glucose 94 MG/DL (74-106); Osmolality,Calculated 278.3 MOS/KG (273-304); Potassium 3.5 MMOL/L (3.5-5.1); Sodium 141 MMOL/L (136-145); Total Protein 5.3 G/DL (6.4-8.2)
[2021-09-23 02:56] LABS: Ammonia < 10 UMOL/L (11-32)
[2021-09-23] MEDS ORDERED: MAGNESIUM SULF RIDER 2 GM/50 ML PREMIX IV STA (03:01)
[2021-09-23] MEDS ORDERED: METOPROLOL TARTRATE 5 MG/5 ML VIAL IV STA (03:11)
[2021-09-23 04:49] LABS: Band Neutrophils 4 % (0-10); Hypochromasia Slight; Lymphocytes 8 % (20-55); Microcytosis 1+; Segmented Neutrophils 78 % (50-85); Total Cells Counted 100
[2021-09-23 04:50] LABS: Platelet Estimate Increased
[2021-09-23] MEDS ORDERED: GLUCAGON 1 MG VIAL IM PRN (05:21)
[2021-09-23] MEDS ORDERED: SODIUM CHLORIDE 0.9% 500 ML IV ONE (05:29)
[2021-09-23] MEDS: VANCOMYCIN INJ 1,000 MG in SODIUM CHLORIDE 0.9% 250 ML IV SCH ×2 (05:54→18:42)
[2021-09-23 06:07] LABS: INR 1.2; PT Patient Result 13.5 SECS (10.5-12.0)
[2021-09-23] MEDS ORDERED: MAGNESIUM SULF RIDER 4 GM/100 ML PREMIX IV ONE (06:30)
[2021-09-23] MEDS ORDERED: LACTATED RINGERS 1,000 ML IV SCH (06:30)
[2021-09-23] MEDS: FOLIC ACID 1 MG TABLET PO SCH (08:00)
[2021-09-23] MEDS ORDERED: SOTALOL 80 MG TABLET ONE (08:00)
[2021-09-23] MEDS: LACTULOSE 20 GM/30 ML UDCUP PO SCH ×2 (08:00→10:16)
[2021-09-23] MEDS: SOTALOL 80 MG TABLET PO SCH ×2 (08:00→22:47)
[2021-09-23] MEDS ORDERED: levETIRAcetam 500 MG TABLET ONE (08:00)
[2021-09-23] MEDS: PIPERACILLIN/TAZOBACTAM 3,375 MG in SODIUM CHLORIDE 0.9% 100 ML IV SCH ×2 (08:00→18:41)
[2021-09-23] MEDS: levETIRAcetam 500 MG TABLET PO SCH ×2 (09:00→22:46)
[2021-09-23] MEDS: NYSTATIN CREAM 15 GM TUBE TOP SCH ×3 (10:15→22:47)
[2021-09-23] MEDS: PANTOPRAZOLE 40 MG TABLET PO SCH (10:15)
[2021-09-23] MEDS: POTASSIUM CHLORIDE 20 MEQ PACK PO SCH (10:15)
[2021-09-23 10:20] LABS: Basophils # 0.1 10*3/uL (0.0-0.2); Basophils % 0.3 % (0.0-0.8); Hematocrit 37.7 VOL% (35.7-47.0); Hemoglobin 12.1 GM/DL (12.0-16.0); Immature Granulocytes Absolute 0.21 #; Lymphocytes # 2.3 10*3/uL (1.4-4.0); Lymphocytes % 10.8 % (21.3-54.2); Mean Corpuscular HGB Conc 32.1 GM/DL (32-36); Mean Corpuscular Volume 95.2 FL (87-102); Mean Platelet Volume 10.1 FL (9.6-12.0); Monocytes % 8.1 % (1.7-12.7); Neutrophils % 79.8 % (38.7-73.9); Platelet Count 446 T/CUMM (130-400); Red Blood Count 3.96 MC/CUMM (3.8-5.5); Red Cell Distribution Width 19.7 % (9.3-17.3); White Blood Count 21.6 T/CUMM (4-12)
[2021-09-23 10:40] LABS: Band Neutrophils 4 % (0-10); Eosinophils 1 % (0-10); Lymphocytes 14 % (20-55); Segmented Neutrophils 77 % (50-85); Total Cells Counted 100
[2021-09-23 10:41] LABS: Hypochromasia 1+; Microcytosis 1+
[2021-09-23 10:43] LABS: Ovalocytes Slight
[2021-09-23] MEDS ORDERED: INFLUENZA VIRUS VACCINE 0.5 ML SYRINGE IM ONE (15:01)
[2021-09-24 01:37] LABS: Basophils # 0.1 10*3/uL (0.0-0.2); Basophils % 0.5 % (0.0-0.8); Eosinophils # 0.1 10*3/uL (0.0-0.87); Eosinophils % 0.5 % (0.00-10.9); Hematocrit 30.3 VOL% (35.7-47.0); Hemoglobin 9.5 GM/DL (12.0-16.0); Immature Granulocytes % 1.4 %; Immature Granulocytes Absolute 0.21 #; Lymphocytes # 2.3 10*3/uL (1.4-4.0); Lymphocytes % 15.3 % (21.3-54.2); Mean Corpuscular HGB Conc 31.4 GM/DL (32-36); Mean Corpuscular Volume 96.2 FL (87-102); Mean Platelet Volume 9.8 FL (9.6-12.0); Monocytes % 9.2 % (1.7-12.7); Neutrophils % 73.1 % (38.7-73.9); Platelet Count 335 T/CUMM (130-400); Red Blood Count 3.15 MC/CUMM (3.8-5.5); Red Cell Distribution Width 19.9 % (9.3-17.3); White Blood Count 14.7 T/CUMM (4-12)
[2021-09-24 01:52] LABS: Calcium 7.7 MG/DL (8.5-10.1); Osmolality,Calculated 276.3 MOS/KG (273-304); Potassium 3.2 MMOL/L (3.5-5.1)
[2021-09-24 01:55] LABS: Albumin 1.1 G/DL (3.4-5.0); Bilirubin,Total 0.5 MG/DL (0.20-1.00); Calcium 7.5 MG/DL (8.5-10.1); Osmolality,Calculated 274.4 MOS/KG (273-304); Potassium 3.1 MMOL/L (3.5-5.1); Total Protein 4.2 G/DL (6.4-8.2)
[2021-09-24] MEDS ORDERED: SODIUM CHLORIDE 0.9% 1,000 ML IV ONE (03:05)
[2021-09-24] MEDS ORDERED: POTASSIUM CHLORIDE 20 MEQ PACK PO ONE (03:08)
[2021-09-24] MEDS ORDERED: MAGNESIUM SULF RIDER 1 GM/100 ML PREMIX IV ONE (04:00)
[2021-09-24] MEDS: PIPERACILLIN/TAZOBACTAM 3,375 MG in SODIUM CHLORIDE 0.9% 100 ML IV SCH ×3 (04:21→15:05)
[2021-09-24] MEDS: DEXTROSE 50% 25 GM/50 ML VIAL IV PRN (06:09)
[2021-09-24] MEDS: VANCOMYCIN INJ 1,000 MG in SODIUM CHLORIDE 0.9% 250 ML IV SCH (06:10)
[2021-09-24] MEDS: LEVOTHYROXINE 50 MCG TABLET PO SCH (06:10)
[2021-09-24] MEDS ORDERED: NOREPINEPHRINE 4 MG/4 ML VIAL IV ONE (06:32)
[2021-09-24] MEDS ORDERED: NOREPINEPHRINE 8 MG in SODIUM CHLORIDE 0.9% 242 ML IV PRN (06:34)
[2021-09-24] MEDS: FOLIC ACID 1 MG TABLET PO SCH (09:16)
[2021-09-24] MEDS: levETIRAcetam 500 MG TABLET PO SCH ×2 (09:16→20:49)
[2021-09-24] MEDS: LACTULOSE 20 GM/30 ML UDCUP PO SCH (09:16)
[2021-09-24] MEDS: NYSTATIN CREAM 15 GM TUBE TOP SCH ×3 (09:16→20:56)
[2021-09-24] MEDS: POTASSIUM CHLORIDE 20 MEQ TABLET PO PRN (09:17)
[2021-09-24] MEDS: PANTOPRAZOLE 40 MG TABLET PO SCH (09:17)
[2021-09-24] MEDS: POTASSIUM CHLORIDE 20 MEQ PACK PO SCH (09:17)
[2021-09-24] MEDS: HYDROCORTISONE 100 MG VIAL IV SCH ×2 (09:49→15:31)
[2021-09-24] MEDS: DESITIN 4OZ/NYSTATIN 15 GRAM MIXTURE PASTE TOP SCH ×2 (14:34→20:50)
[2021-09-25] MEDS: VANCOMYCIN INJ 1,000 MG in SODIUM CHLORIDE 0.9% 250 ML IV SCH ×2 (00:20→18:45)
[2021-09-25] MEDS: PIPERACILLIN/TAZOBACTAM 3,375 MG in SODIUM CHLORIDE 0.9% 100 ML IV SCH ×2 (01:34→11:01)
[2021-09-25] MEDS: HYDROCORTISONE 100 MG VIAL IV SCH ×3 (01:34→16:08)
[2021-09-25] MEDS: LEVOTHYROXINE 50 MCG TABLET PO SCH (06:10)
[2021-09-25 07:26] LABS: Albumin 1.3 G/DL (3.4-5.0); Bilirubin,Total 0.5 MG/DL (0.20-1.00); Osmolality,Calculated 276.4 MOS/KG (273-304); Potassium 3.3 MMOL/L (3.5-5.1); Total Protein 5.4 G/DL (6.4-8.2)
[2021-09-25 08:19] LABS: Basophils % 0.3 % (0.0-0.8); Hematocrit 37.4 VOL% (35.7-47.0); Immature Granulocytes % 1.7 %; Immature Granulocytes Absolute 0.24 #; Lymphocytes # 2.5 10*3/uL (1.4-4.0); Lymphocytes % 18.1 % (21.3-54.2); Mean Corpuscular Volume 95.4 FL (87-102); Mean Platelet Volume 9.7 FL (9.6-12.0); Monocytes % 4.9 % (1.7-12.7); Platelet Count 337 T/CUMM (130-400); Red Cell Distribution Width 19.9 % (9.3-17.3)
[2021-09-25 08:41] LABS: Hemoglobin 11.6 GM/DL (12.0-16.0); Red Blood Count 3.92 MC/CUMM (3.8-5.5)
[2021-09-25] MEDS: SODIUM CHLORIDE 0.9% 1,000 ML IV SCH ×2 (09:00→18:45)
[2021-09-25] MEDS: NYSTATIN CREAM 15 GM TUBE TOP SCH ×3 (09:14→21:57)
[2021-09-25] MEDS: DESITIN 4OZ/NYSTATIN 15 GRAM MIXTURE PASTE TOP SCH ×2 (09:14→21:57)
[2021-09-25] MEDS: levETIRAcetam 500 MG TABLET PO SCH ×2 (09:14→21:55)
[2021-09-25] MEDS: PANTOPRAZOLE 40 MG TABLET PO SCH (09:14)
[2021-09-25] MEDS: FOLIC ACID 1 MG TABLET PO SCH (09:14)
[2021-09-25] MEDS: LACTULOSE 20 GM/30 ML UDCUP PO SCH (09:14)
[2021-09-25] MEDS: POTASSIUM CHLORIDE 20 MEQ TABLET PO PRN (09:14)
[2021-09-25] MEDS: POTASSIUM CHLORIDE 20 MEQ PACK PO SCH (09:14)
[2021-09-25] MEDS ORDERED: metroNIDAZOLE 250 MG TABLET PO SCH (12:00)
[2021-09-25] MEDS: cefTRIAXone 1,000 MG in SODIUM CHLORIDE 0.9% 100 ML IV SCH (12:11)
[2021-09-25] MEDS: metroNIDAZOLE 500 MG TABLET PO SCH ×2 (12:12→18:43)
[2021-09-25] MEDS: ACETAMINOPHEN 325 MG TABLET PO PRN (21:55)
[2021-09-26] MEDS: HYDROCORTISONE 100 MG VIAL IV SCH ×3 (00:45→16:56)
[2021-09-26] MEDS: metroNIDAZOLE 500 MG TABLET PO SCH ×5 (00:46→17:14)
[2021-09-26] MEDS: SODIUM CHLORIDE 0.9% 1,000 ML IV SCH ×2 (02:25→13:21)
[2021-09-26 05:35] LABS: Basophils % 0.3 % (0.0-0.8); Hematocrit 31.3 VOL% (35.7-47.0); Hemoglobin 9.9 GM/DL (12.0-16.0); Immature Granulocytes % 1.8 %; Immature Granulocytes Absolute 0.18 #; Lymphocytes % 20.2 % (21.3-54.2); Mean Corpuscular HGB Conc 31.6 GM/DL (32-36); Mean Corpuscular Volume 96.3 FL (87-102); Mean Platelet Volume 10.3 FL (9.6-12.0); Monocytes % 6.3 % (1.7-12.7); Neutrophils % 71.4 % (38.7-73.9); Platelet Count 258 T/CUMM (130-400); Red Blood Count 3.25 MC/CUMM (3.8-5.5); Red Cell Distribution Width 19.8 % (9.3-17.3)
[2021-09-26] MEDS: LEVOTHYROXINE 50 MCG TABLET PO SCH (05:55)
[2021-09-26 05:56] LABS: Albumin 1.3 G/DL (3.4-5.0); Bilirubin,Total 1.1 MG/DL (0.20-1.00); Osmolality,Calculated 285.8 MOS/KG (273-304); Potassium 3.4 MMOL/L (3.5-5.1)
[2021-09-26] MEDS: LACTULOSE 20 GM/30 ML UDCUP PO SCH (09:49)
[2021-09-26] MEDS: FOLIC ACID 1 MG TABLET PO SCH (09:49)
[2021-09-26] MEDS: levETIRAcetam 500 MG TABLET PO SCH ×2 (09:49→21:10)
[2021-09-26] MEDS: PANTOPRAZOLE 40 MG TABLET PO SCH (09:49)
[2021-09-26] MEDS: NYSTATIN CREAM 15 GM TUBE TOP SCH ×3 (09:50→21:10)
[2021-09-26] MEDS: DESITIN 4OZ/NYSTATIN 15 GRAM MIXTURE PASTE TOP SCH ×2 (09:50→21:10)
[2021-09-26] MEDS: POTASSIUM CHLORIDE 20 MEQ PACK PO SCH (11:00)
[2021-09-26] MEDS: cefTRIAXone 1,000 MG in SODIUM CHLORIDE 0.9% 100 ML IV SCH (12:01)
[2021-09-26] MEDS: VANCOMYCIN INJ 1,000 MG in SODIUM CHLORIDE 0.9% 250 ML IV SCH (13:22)
[2021-09-27] MEDS: metroNIDAZOLE 500 MG TABLET PO SCH ×5 (01:00→23:36)
[2021-09-27] MEDS: HYDROCORTISONE 100 MG VIAL IV SCH ×3 (01:12→16:42)
[2021-09-27 06:27] LABS: Basophils % 0.2 % (0.0-0.8); Hematocrit 34.5 VOL% (35.7-47.0); Hemoglobin 10.7 GM/DL (12.0-16.0); Immature Granulocytes % 3.3 %; Immature Granulocytes Absolute 0.31 #; Lymphocytes # 1.9 10*3/uL (1.4-4.0); Lymphocytes % 20.1 % (21.3-54.2); Mean Corpuscular Volume 96.6 FL (87-102); Mean Platelet Volume 10.2 FL (9.6-12.0); Monocytes % 8.4 % (1.7-12.7); Platelet Count 211 T/CUMM (130-400); Red Blood Count 3.57 MC/CUMM (3.8-5.5); Red Cell Distribution Width 19.7 % (9.3-17.3); White Blood Count 9.5 T/CUMM (4-12)
[2021-09-27 07:09] LABS: Band Neutrophils 4 % (0-10); Lymphocytes 13 % (20-55); Segmented Neutrophils 78 % (50-85); Total Cells Counted 100
[2021-09-27 07:10] LABS: Hypochromasia 1+; Microcytosis 1+; Platelet Estimate Normal
[2021-09-27] MEDS: VANCOMYCIN INJ 1,000 MG in SODIUM CHLORIDE 0.9% 250 ML IV SCH ×2 (07:14→23:37)
[2021-09-27] MEDS: LEVOTHYROXINE 50 MCG TABLET PO SCH (07:16)
[2021-09-27] MEDS: FOLIC ACID 1 MG TABLET PO SCH (08:38)
[2021-09-27] MEDS: cefTRIAXone 1,000 MG in SODIUM CHLORIDE 0.9% 100 ML IV SCH (08:38)
[2021-09-27] MEDS: levETIRAcetam 500 MG TABLET PO SCH ×2 (08:38→23:36)
[2021-09-27] MEDS: POTASSIUM CHLORIDE 20 MEQ PACK PO SCH (09:40)
[2021-09-27] MEDS: NYSTATIN CREAM 15 GM TUBE TOP SCH ×3 (09:40→23:37)
[2021-09-27] MEDS: PANTOPRAZOLE 40 MG TABLET PO SCH (09:40)
[2021-09-27] MEDS: DESITIN 4OZ/NYSTATIN 15 GRAM MIXTURE PASTE TOP SCH ×2 (09:40→23:37)
[2021-09-27] MEDS: RIFAXIMIN 550 MG TABLET PO SCH ×2 (10:23→23:36)
[2021-09-27] MEDS: KETOROLAC 30 MG/1 ML VIAL IV PRN (13:55)
[2021-09-27] MEDS: ONDANSETRON 4 MG/2 ML VIAL IV PRN (13:55)
[2021-09-27] MEDS: SODIUM CHLORIDE 0.9% 1,000 ML IV SCH ×2 (16:41)
[2021-09-28] MEDS: SODIUM CHLORIDE 0.9% 1,000 ML IV SCH (00:02)
[2021-09-28] MEDS: KETOROLAC 30 MG/1 ML VIAL IV PRN (00:15)
[2021-09-28] MEDS: HYDROCORTISONE 100 MG VIAL IV SCH ×3 (00:27→18:07)
[2021-09-28] MEDS: metroNIDAZOLE 500 MG TABLET PO SCH ×3 (06:30→18:08)
[2021-09-28] MEDS: LEVOTHYROXINE 50 MCG TABLET PO SCH (07:15)
[2021-09-28 07:39] LABS: Basophils % 0.2 % (0.0-0.8); Hematocrit 40.4 VOL% (35.7-47.0); Hemoglobin 12.5 GM/DL (12.0-16.0); Immature Granulocytes Absolute 0.18 #; Lymphocytes # 1.4 10*3/uL (1.4-4.0); Lymphocytes % 15.8 % (21.3-54.2); Mean Corpuscular HGB Conc 30.9 GM/DL (32-36); Mean Corpuscular Volume 97.1 FL (87-102); Mean Platelet Volume 10.7 FL (9.6-12.0); Monocytes % 5.8 % (1.7-12.7); Neutrophils % 76.2 % (38.7-73.9); Platelet Count 175 T/CUMM (130-400); Red Blood Count 4.16 MC/CUMM (3.8-5.5); Red Cell Distribution Width 19.2 % (9.3-17.3); White Blood Count 9.1 T/CUMM (4-12)
[2021-09-28 07:53] LABS: Calcium 8.2 MG/DL (8.5-10.1); Osmolality,Calculated 276.5 MOS/KG (273-304); Potassium 3.7 MMOL/L (3.5-5.1)
[2021-09-28] MEDS: PANTOPRAZOLE 40 MG TABLET PO SCH (09:23)
[2021-09-28] MEDS: levETIRAcetam 500 MG TABLET PO SCH ×2 (09:23→21:26)
[2021-09-28] MEDS: FOLIC ACID 1 MG TABLET PO SCH (09:23)
[2021-09-28] MEDS: RIFAXIMIN 550 MG TABLET PO SCH ×2 (09:23→21:26)
[2021-09-28] MEDS: DESITIN 4OZ/NYSTATIN 15 GRAM MIXTURE PASTE TOP SCH ×2 (09:25→21:29)
[2021-09-28] MEDS: NYSTATIN CREAM 15 GM TUBE TOP SCH ×3 (09:25→21:29)
[2021-09-28] MEDS: POTASSIUM CHLORIDE 20 MEQ PACK PO SCH (09:25)
[2021-09-28] MEDS: VANCOMYCIN INJ 1,000 MG in SODIUM CHLORIDE 0.9% 250 ML IV SCH (18:08)
[2021-09-29] MEDS: HYDROCORTISONE 100 MG VIAL IV SCH ×4 (03:09→22:21)
[2021-09-29] MEDS: metroNIDAZOLE 500 MG TABLET PO SCH ×4 (03:09→17:17)
[2021-09-29] MEDS: KETOROLAC 30 MG/1 ML VIAL IV PRN ×2 (04:10→22:21)
[2021-09-29 05:14] LABS: Basophils % 0.2 % (0.0-0.8); Hematocrit 32.7 VOL% (35.7-47.0); Hemoglobin 10.1 GM/DL (12.0-16.0); Immature Granulocytes % 1.8 %; Immature Granulocytes Absolute 0.21 #; Lymphocytes # 1.5 10*3/uL (1.4-4.0); Lymphocytes % 12.2 % (21.3-54.2); Mean Corpuscular HGB Conc 30.9 GM/DL (32-36); Mean Corpuscular Volume 96.2 FL (87-102); Mean Platelet Volume 10.6 FL (9.6-12.0); Monocytes % 6.9 % (1.7-12.7); Neutrophils % 78.9 % (38.7-73.9); Platelet Count 208 T/CUMM (130-400); Red Cell Distribution Width 19.1 % (9.3-17.3)
[2021-09-29 05:30] LABS: INR 1.2; PT Patient Result 13.5 SECS (10.5-12.0)
[2021-09-29 05:44] LABS: Calcium 7.7 MG/DL (8.5-10.1); Osmolality,Calculated 282.1 MOS/KG (273-304); Potassium 3.6 MMOL/L (3.5-5.1)
[2021-09-29] MEDS: LEVOTHYROXINE 50 MCG TABLET PO SCH (07:25)
[2021-09-29] MEDS ORDERED: ALBUMIN 25% 25 GM/100 ML VIAL IV PRN (09:27)
[2021-09-29 11:13] LABS: Neutrophils,Peritoneal Fluid 25 %; RBC,Peritoneal Fluid < 1 T/CUMM
[2021-09-29] MEDS: NYSTATIN CREAM 15 GM TUBE TOP SCH ×3 (12:51→22:22)
[2021-09-29] MEDS: DESITIN 4OZ/NYSTATIN 15 GRAM MIXTURE PASTE TOP SCH ×2 (12:52→22:21)
[2021-09-29] MEDS: levETIRAcetam 500 MG TABLET PO SCH ×2 (13:10→22:21)
[2021-09-29] MEDS: FOLIC ACID 1 MG TABLET PO SCH (13:11)
[2021-09-29] MEDS: RIFAXIMIN 550 MG TABLET PO SCH ×2 (13:11→22:21)
[2021-09-29] MEDS: PANTOPRAZOLE 40 MG TABLET PO SCH (13:11)
[2021-09-29] MEDS: POTASSIUM CHLORIDE 20 MEQ PACK PO SCH (13:11)
[2021-09-29] MEDS: SODIUM CHLORIDE 0.9% 1,000 ML IV SCH (19:40)
[2021-09-30] MEDS: metroNIDAZOLE 500 MG TABLET PO SCH ×3 (00:55→12:22)
[2021-09-30] MEDS: LEVOTHYROXINE 50 MCG TABLET PO SCH (05:39)
[2021-09-30] MEDS: HYDROCORTISONE 100 MG VIAL IV SCH ×3 (05:40→21:39)
[2021-09-30 05:41] LABS: Basophils % 0.1 % (0.0-0.8); Hematocrit 29.7 VOL% (35.7-47.0); Hemoglobin 9.3 GM/DL (12.0-16.0); Immature Granulocytes % 2.3 %; Immature Granulocytes Absolute 0.27 #; Lymphocytes # 1.4 10*3/uL (1.4-4.0); Lymphocytes % 11.7 % (21.3-54.2); Mean Corpuscular HGB Conc 31.3 GM/DL (32-36); Mean Corpuscular Volume 96.7 FL (87-102); Mean Platelet Volume 10.9 FL (9.6-12.0); Monocytes % 7.4 % (1.7-12.7); Neutrophils % 78.5 % (38.7-73.9); Platelet Count 147 T/CUMM (130-400); Red Blood Count 3.07 MC/CUMM (3.8-5.5); White Blood Count 11.9 T/CUMM (4-12)
[2021-09-30 05:59] LABS: Calcium 7.7 MG/DL (8.5-10.1); Osmolality,Calculated 283.3 MOS/KG (273-304)
[2021-09-30] MEDS: levETIRAcetam 500 MG TABLET PO SCH ×2 (10:00→21:38)
[2021-09-30] MEDS: FOLIC ACID 1 MG TABLET PO SCH (10:00)
[2021-09-30] MEDS: PANTOPRAZOLE 40 MG TABLET PO SCH (10:00)
[2021-09-30] MEDS: RIFAXIMIN 550 MG TABLET PO SCH ×2 (10:00→21:38)
[2021-09-30] MEDS: NYSTATIN CREAM 15 GM TUBE TOP SCH ×3 (10:01→21:40)
[2021-09-30] MEDS: DESITIN 4OZ/NYSTATIN 15 GRAM MIXTURE PASTE TOP SCH ×2 (10:01→21:39)
[2021-09-30] MEDS: POTASSIUM CHLORIDE 20 MEQ PACK PO SCH (10:02)
[2021-09-30] MEDS: KETOROLAC 30 MG/1 ML VIAL IV PRN (21:42)
[2021-10-01] MEDS: KETOROLAC 30 MG/1 ML VIAL IV PRN ×3 (02:42→14:37)
[2021-10-01] MEDS: HYDROCORTISONE 100 MG VIAL IV SCH ×3 (04:39→22:14)
[2021-10-01 05:20] LABS: Basophils % 0.1 % (0.0-0.8); Hematocrit 30.8 VOL% (35.7-47.0); Hemoglobin 9.9 GM/DL (12.0-16.0); Immature Granulocytes Absolute 0.25 #; Lymphocytes # 1.5 10*3/uL (1.4-4.0); Lymphocytes % 11.9 % (21.3-54.2); Mean Corpuscular HGB Conc 32.1 GM/DL (32-36); Mean Platelet Volume 10.9 FL (9.6-12.0); Monocytes % 5.8 % (1.7-12.7); Neutrophils % 80.2 % (38.7-73.9); Platelet Count 169 T/CUMM (130-400); Red Blood Count 3.21 MC/CUMM (3.8-5.5); Red Cell Distribution Width 18.7 % (9.3-17.3); White Blood Count 12.6 T/CUMM (4-12)
[2021-10-01 05:33] LABS: Calcium 7.7 MG/DL (8.5-10.1); Osmolality,Calculated 282.3 MOS/KG (273-304); Potassium 4.3 MMOL/L (3.5-5.1)
[2021-10-01] MEDS: LEVOTHYROXINE 50 MCG TABLET PO SCH (05:33)
[2021-10-01] MEDS: PANTOPRAZOLE 40 MG TABLET PO SCH (10:23)
[2021-10-01] MEDS: RIFAXIMIN 550 MG TABLET PO SCH ×2 (10:23→21:21)
[2021-10-01] MEDS: FOLIC ACID 1 MG TABLET PO SCH (10:23)
[2021-10-01] MEDS: levETIRAcetam 500 MG TABLET PO SCH ×2 (10:23→21:21)
[2021-10-01] MEDS: POTASSIUM CHLORIDE 20 MEQ PACK PO SCH (10:23)
[2021-10-01] MEDS: DESITIN 4OZ/NYSTATIN 15 GRAM MIXTURE PASTE TOP SCH ×2 (10:23→21:22)
[2021-10-01] MEDS: NYSTATIN CREAM 15 GM TUBE TOP SCH ×3 (10:24→22:11)
[2021-10-01] MEDS: SODIUM CHLORIDE 0.9% 1,000 ML IV SCH (22:10)
[2021-10-02] MEDS: SODIUM CHLORIDE 0.9% 1,000 ML IV SCH ×3 (01:20→15:55)
[2021-10-02 04:31] LABS: Basophils % 0.1 % (0.0-0.8); Eosinophils % 0.1 % (0.00-10.9); Hematocrit 32.6 VOL% (35.7-47.0); Hemoglobin 10.1 GM/DL (12.0-16.0); Immature Granulocytes % 1.9 %; Immature Granulocytes Absolute 0.23 #; Lymphocytes % 8.5 % (21.3-54.2); Mean Corpuscular Volume 95.9 FL (87-102); Mean Platelet Volume 10.2 FL (9.6-12.0); Monocytes % 3.6 % (1.7-12.7); Neutrophils % 85.8 % (38.7-73.9); Platelet Count 189 T/CUMM (130-400); Red Cell Distribution Width 18.8 % (9.3-17.3)
[2021-10-02 04:56] LABS: Albumin 1.8 G/DL (3.4-5.0); Bilirubin,Total 0.6 MG/DL (0.20-1.00); Calcium 7.8 MG/DL (8.5-10.1); Osmolality,Calculated 281.4 MOS/KG (273-304); Potassium 4.7 MMOL/L (3.5-5.1); Total Protein 4.9 G/DL (6.4-8.2)
[2021-10-02] MEDS: HYDROCORTISONE 100 MG VIAL IV SCH ×3 (06:40→22:40)
[2021-10-02] MEDS: LEVOTHYROXINE 50 MCG TABLET PO SCH (06:43)
[2021-10-02] MEDS: FOLIC ACID 1 MG TABLET PO SCH (10:02)
[2021-10-02] MEDS: RIFAXIMIN 550 MG TABLET PO SCH ×2 (10:02→22:40)
[2021-10-02] MEDS: levETIRAcetam 500 MG TABLET PO SCH ×2 (10:03→22:40)
[2021-10-02] MEDS: PANTOPRAZOLE 40 MG TABLET PO SCH (10:03)
[2021-10-02] MEDS: DESITIN 4OZ/NYSTATIN 15 GRAM MIXTURE PASTE TOP SCH ×2 (10:53→22:57)
[2021-10-02] MEDS: NYSTATIN CREAM 15 GM TUBE TOP SCH ×3 (10:53→22:57)
[2021-10-02] MEDS: DEXTROSE 50% 25 GM/50 ML VIAL IV PRN (16:12)
[2021-10-03] MEDS: LEVOTHYROXINE 50 MCG TABLET PO SCH (05:49)
[2021-10-03] MEDS: HYDROCORTISONE 100 MG VIAL IV SCH ×3 (05:49→21:59)
[2021-10-03] MEDS: SODIUM CHLORIDE 0.9% 1,000 ML IV SCH ×2 (05:49→17:35)
[2021-10-03 06:49] LABS: Basophils % 0.1 % (0.0-0.8); Eosinophils % 0.1 % (0.00-10.9); Hematocrit 36.5 VOL% (35.7-47.0); Hemoglobin 11.2 GM/DL (12.0-16.0); Immature Granulocytes % 1.1 %; Immature Granulocytes Absolute 0.19 #; Lymphocytes # 1.5 10*3/uL (1.4-4.0); Lymphocytes % 8.6 % (21.3-54.2); Mean Corpuscular HGB Conc 30.7 GM/DL (32-36); Mean Corpuscular Volume 96.1 FL (87-102); Mean Platelet Volume 10.2 FL (9.6-12.0); Monocytes % 4.8 % (1.7-12.7); Neutrophils % 85.3 % (38.7-73.9); Platelet Count 264 T/CUMM (130-400); Red Cell Distribution Width 18.9 % (9.3-17.3); White Blood Count 17.2 T/CUMM (4-12)
[2021-10-03 07:10] LABS: Bilirubin,Total 0.6 MG/DL (0.20-1.00); Calcium 8.1 MG/DL (8.5-10.1); Osmolality,Calculated 278.7 MOS/KG (273-304); Potassium 5.5 MMOL/L (3.5-5.1); Total Protein 5.4 G/DL (6.4-8.2)
[2021-10-03] MEDS: PANTOPRAZOLE 40 MG TABLET PO SCH (08:37)
[2021-10-03] MEDS: NYSTATIN CREAM 15 GM TUBE TOP SCH ×3 (08:37→22:02)
[2021-10-03] MEDS: levETIRAcetam 500 MG TABLET PO SCH ×2 (08:37→22:01)
[2021-10-03] MEDS: RIFAXIMIN 550 MG TABLET PO SCH ×2 (08:37→22:00)
[2021-10-03] MEDS: FOLIC ACID 1 MG TABLET PO SCH (08:37)
[2021-10-03] MEDS: DESITIN 4OZ/NYSTATIN 15 GRAM MIXTURE PASTE TOP SCH ×2 (10:59→22:03)
[2021-10-04 06:12] LABS: Basophils % 0.1 % (0.0-0.8); Eosinophils % 0.1 % (0.00-10.9); Hematocrit 33.6 VOL% (35.7-47.0); Hemoglobin 10.5 GM/DL (12.0-16.0); Immature Granulocytes % 1.2 %; Lymphocytes # 1.2 10*3/uL (1.4-4.0); Lymphocytes % 7.4 % (21.3-54.2); Mean Corpuscular HGB Conc 31.3 GM/DL (32-36); Mean Corpuscular Volume 96.3 FL (87-102); Mean Platelet Volume 9.6 FL (9.6-12.0); Monocytes % 4.7 % (1.7-12.7); Neutrophils % 86.5 % (38.7-73.9); Platelet Count 265 T/CUMM (130-400); Red Blood Count 3.49 MC/CUMM (3.8-5.5); Red Cell Distribution Width 18.8 % (9.3-17.3); White Blood Count 16.9 T/CUMM (4-12)
[2021-10-04] MEDS: LEVOTHYROXINE 50 MCG TABLET PO SCH (06:21)
[2021-10-04] MEDS: HYDROCORTISONE 100 MG VIAL IV SCH ×3 (06:21→21:20)
[2021-10-04] MEDS: SODIUM CHLORIDE 0.9% 1,000 ML IV SCH ×2 (06:22→20:01)
[2021-10-04 06:27] LABS: Albumin 1.9 G/DL (3.4-5.0); Bilirubin,Total 0.5 MG/DL (0.20-1.00); Calcium 7.8 MG/DL (8.5-10.1); Total Protein 5.1 G/DL (6.4-8.2)
[2021-10-04] MEDS: RIFAXIMIN 550 MG TABLET PO SCH (10:17)
[2021-10-04] MEDS: FOLIC ACID 1 MG TABLET PO SCH (10:17)
[2021-10-04] MEDS: levETIRAcetam 500 MG TABLET PO SCH ×2 (10:17→21:19)
[2021-10-04] MEDS: PANTOPRAZOLE 40 MG TABLET PO SCH (10:17)
[2021-10-04] MEDS: DESITIN 4OZ/NYSTATIN 15 GRAM MIXTURE PASTE TOP SCH ×2 (10:18→21:21)
[2021-10-04] MEDS: NYSTATIN CREAM 15 GM TUBE TOP SCH ×3 (10:53→21:21)
[2021-10-05] MEDS: LEVOTHYROXINE 50 MCG TABLET PO SCH (05:35)
[2021-10-05 06:57] LABS: Basophils % 0.1 % (0.0-0.8); Eosinophils % 0.1 % (0.00-10.9); Hematocrit 31.5 VOL% (35.7-47.0); Hemoglobin 9.8 GM/DL (12.0-16.0); Immature Granulocytes % 0.8 %; Immature Granulocytes Absolute 0.11 #; Lymphocytes # 1.8 10*3/uL (1.4-4.0); Lymphocytes % 12.3 % (21.3-54.2); Mean Corpuscular HGB Conc 31.1 GM/DL (32-36); Mean Platelet Volume 9.5 FL (9.6-12.0); Monocytes % 7.5 % (1.7-12.7); Neutrophils % 79.2 % (38.7-73.9); Platelet Count 292 T/CUMM (130-400); Red Blood Count 3.28 MC/CUMM (3.8-5.5); Red Cell Distribution Width 18.8 % (9.3-17.3); White Blood Count 14.3 T/CUMM (4-12)
[2021-10-05] MEDS: HYDROCORTISONE 100 MG VIAL IV SCH ×3 (07:15→21:18)
[2021-10-05 07:34] LABS: Albumin 1.8 G/DL (3.4-5.0); Calcium 7.9 MG/DL (8.5-10.1); Osmolality,Calculated 274.1 MOS/KG (273-304); Potassium 4.7 MMOL/L (3.5-5.1); Total Protein 4.8 G/DL (6.4-8.2)
[2021-10-05] MEDS: levETIRAcetam 500 MG TABLET PO SCH ×2 (09:14→21:18)
[2021-10-05] MEDS: FOLIC ACID 1 MG TABLET PO SCH (09:14)
[2021-10-05] MEDS: PANTOPRAZOLE 40 MG TABLET PO SCH (09:14)
[2021-10-05] MEDS: NYSTATIN CREAM 15 GM TUBE TOP SCH ×3 (09:15→21:23)
[2021-10-05] MEDS: DESITIN 4OZ/NYSTATIN 15 GRAM MIXTURE PASTE TOP SCH ×2 (09:15→21:24)
[2021-10-05] MEDS: SODIUM CHLORIDE 0.9% 1,000 ML IV SCH (09:15)
[2021-10-05] MEDS: DEXTROSE 50% 25 GM/50 ML VIAL IV PRN (21:44)
[2021-10-06] MEDS: LEVOTHYROXINE 50 MCG TABLET PO SCH (06:41)
[2021-10-06] MEDS: HYDROCORTISONE 100 MG VIAL IV SCH ×2 (06:41→13:20)
[2021-10-06] MEDS: SODIUM CHLORIDE 0.9% 1,000 ML IV SCH ×2 (06:41→11:05)
[2021-10-06 07:01] LABS: Basophils % 0.1 % (0.0-0.8); Eosinophils % 0.1 % (0.00-10.9); Hematocrit 36.5 VOL% (35.7-47.0); Hemoglobin 11.3 GM/DL (12.0-16.0); Immature Granulocytes % 0.6 %; Immature Granulocytes Absolute 0.09 #; Lymphocytes # 1.3 10*3/uL (1.4-4.0); Lymphocytes % 8.2 % (21.3-54.2); Mean Corpuscular Volume 98.1 FL (87-102); Mean Platelet Volume 9.4 FL (9.6-12.0); Monocytes % 5.6 % (1.7-12.7); Neutrophils % 85.4 % (38.7-73.9); Platelet Count 379 T/CUMM (130-400); Red Blood Count 3.72 MC/CUMM (3.8-5.5); Red Cell Distribution Width 18.8 % (9.3-17.3); White Blood Count 15.3 T/CUMM (4-12)
[2021-10-06 07:34] LABS: Albumin 1.9 G/DL (3.4-5.0); Bilirubin,Total 0.8 MG/DL (0.20-1.00); Calcium 8.4 MG/DL (8.5-10.1); Osmolality,Calculated 271.4 MOS/KG (273-304); Potassium 4.7 MMOL/L (3.5-5.1); Total Protein 5.8 G/DL (6.4-8.2)
[2021-10-06] MEDS: levETIRAcetam 500 MG TABLET PO SCH ×2 (08:04→20:56)
[2021-10-06] MEDS: NYSTATIN CREAM 15 GM TUBE TOP SCH ×3 (08:05→20:56)
[2021-10-06] MEDS: FOLIC ACID 1 MG TABLET PO SCH (08:05)
[2021-10-06] MEDS: PANTOPRAZOLE 40 MG TABLET PO SCH (08:05)
[2021-10-06] MEDS: DESITIN 4OZ/NYSTATIN 15 GRAM MIXTURE PASTE TOP SCH ×2 (08:05→20:56)
[2021-10-06] MEDS ORDERED: MAGNESIUM SULF RIDER 2 GM/50 ML PREMIX IV ONE (17:00)
[2021-10-06] MEDS: SODIUM BICARBONATE 650 MG TABLET PO SCH (20:56)
[2021-10-07] MEDS: HYDROCORTISONE 100 MG VIAL IV SCH ×2 (03:11→15:55)
[2021-10-07 05:32] LABS: Basophils % 0.1 % (0.0-0.8); Eosinophils % 0.1 % (0.00-10.9); Hematocrit 34.7 VOL% (35.7-47.0); Hemoglobin 10.9 GM/DL (12.0-16.0); Immature Granulocytes % 0.6 %; Immature Granulocytes Absolute 0.08 #; Lymphocytes # 1.5 10*3/uL (1.4-4.0); Lymphocytes % 10.8 % (21.3-54.2); Mean Corpuscular HGB Conc 31.4 GM/DL (32-36); Mean Corpuscular Volume 96.7 FL (87-102); Mean Platelet Volume 9.2 FL (9.6-12.0); Monocytes % 7.5 % (1.7-12.7); Neutrophils % 80.9 % (38.7-73.9); Platelet Count 330 T/CUMM (130-400); Red Blood Count 3.59 MC/CUMM (3.8-5.5); Red Cell Distribution Width 18.6 % (9.3-17.3); White Blood Count 13.7 T/CUMM (4-12)
[2021-10-07 05:54] LABS: Albumin 1.8 G/DL (3.4-5.0); Calcium 8.1 MG/DL (8.5-10.1); Potassium 4.5 MMOL/L (3.5-5.1); Total Protein 5.2 G/DL (6.4-8.2)
[2021-10-07] MEDS: LEVOTHYROXINE 50 MCG TABLET PO SCH (06:44)
[2021-10-07] MEDS: SODIUM CHLORIDE 0.9% 1,000 ML IV SCH ×3 (07:46→13:49)
[2021-10-07] MEDS: levETIRAcetam 500 MG TABLET PO SCH ×2 (08:39→23:37)
[2021-10-07] MEDS: PANTOPRAZOLE 40 MG TABLET PO SCH (08:39)
[2021-10-07] MEDS: FOLIC ACID 1 MG TABLET PO SCH (08:39)
[2021-10-07] MEDS: SODIUM BICARBONATE 650 MG TABLET PO SCH ×2 (08:39→23:37)
[2021-10-07] MEDS: NYSTATIN CREAM 15 GM TUBE TOP SCH ×3 (09:12→23:40)
[2021-10-07] MEDS: DESITIN 4OZ/NYSTATIN 15 GRAM MIXTURE PASTE TOP SCH ×2 (09:12→23:40)
[2021-10-07] MEDS: ONDANSETRON 4 MG/2 ML VIAL IV PRN (13:07)
[2021-10-08] MEDS: SODIUM CHLORIDE 0.9% 1,000 ML IV SCH (03:00)
[2021-10-08] MEDS: HYDROCORTISONE 100 MG VIAL IV SCH ×2 (03:18→14:10)
[2021-10-08] MEDS: ONDANSETRON 4 MG/2 ML VIAL IV PRN ×3 (03:51→21:35)
[2021-10-08 05:31] LABS: Basophils % 0.1 % (0.0-0.8); Eosinophils % 0.1 % (0.00-10.9); Hematocrit 30.8 VOL% (35.7-47.0); Hemoglobin 9.6 GM/DL (12.0-16.0); Immature Granulocytes % 0.4 %; Immature Granulocytes Absolute 0.05 #; Lymphocytes # 1.6 10*3/uL (1.4-4.0); Lymphocytes % 13.5 % (21.3-54.2); Mean Corpuscular HGB Conc 31.2 GM/DL (32-36); Mean Corpuscular Volume 97.2 FL (87-102); Mean Platelet Volume 9.3 FL (9.6-12.0); Monocytes % 8.7 % (1.7-12.7); Neutrophils % 77.2 % (38.7-73.9); Platelet Count 340 T/CUMM (130-400); Red Blood Count 3.17 MC/CUMM (3.8-5.5); Red Cell Distribution Width 18.6 % (9.3-17.3); White Blood Count 11.7 T/CUMM (4-12)
[2021-10-08] MEDS: LEVOTHYROXINE 50 MCG TABLET PO SCH (05:40)
[2021-10-08 05:51] LABS: Albumin 1.7 G/DL (3.4-5.0); Bilirubin,Total 0.8 MG/DL (0.20-1.00); Osmolality,Calculated 275.8 MOS/KG (273-304); Potassium 4.3 MMOL/L (3.5-5.1); Total Protein 4.9 G/DL (6.4-8.2)
[2021-10-08] MEDS: PANTOPRAZOLE 40 MG TABLET PO SCH (09:01)
[2021-10-08] MEDS: levETIRAcetam 500 MG TABLET PO SCH ×2 (09:01→22:29)
[2021-10-08] MEDS: FOLIC ACID 1 MG TABLET PO SCH (09:01)
[2021-10-08] MEDS: SODIUM BICARBONATE 650 MG TABLET PO SCH ×2 (09:01→22:29)
[2021-10-08] MEDS: DESITIN 4OZ/NYSTATIN 15 GRAM MIXTURE PASTE TOP SCH ×2 (09:02→22:31)
[2021-10-08] MEDS: NYSTATIN CREAM 15 GM TUBE TOP SCH ×3 (09:02→22:31)
[2021-10-08] MEDS ORDERED: VANCOMYCIN INJ 750 MG in SODIUM CHLORIDE 0.9% 250 ML IV ONE (11:00)
[2021-10-08] MEDS ORDERED: TUBERCULIN SKIN TEST 0.1 ML SYRINGE INTRADERM ONE (13:00)
[2021-10-09 05:01] LABS: Basophils % 0.1 % (0.0-0.8); Eosinophils % 0.2 % (0.00-10.9); Hematocrit 33.7 VOL% (35.7-47.0); Hemoglobin 10.3 GM/DL (12.0-16.0); Immature Granulocytes % 0.5 %; Immature Granulocytes Absolute 0.06 #; Lymphocytes # 2.1 10*3/uL (1.4-4.0); Lymphocytes % 16.5 % (21.3-54.2); Mean Corpuscular HGB Conc 30.6 GM/DL (32-36); Mean Corpuscular Volume 99.7 FL (87-102); Mean Platelet Volume 9.4 FL (9.6-12.0); Monocytes % 9.3 % (1.7-12.7); Neutrophils % 73.4 % (38.7-73.9); Platelet Count 357 T/CUMM (130-400); Red Blood Count 3.38 MC/CUMM (3.8-5.5); Red Cell Distribution Width 18.5 % (9.3-17.3); White Blood Count 12.7 T/CUMM (4-12)
[2021-10-09 05:25] LABS: Calcium 7.9 MG/DL (8.5-10.1); Osmolality,Calculated 277.7 MOS/KG (273-304); Potassium 3.9 MMOL/L (3.5-5.1)
[2021-10-09] MEDS: HYDROCORTISONE 100 MG VIAL IV SCH (05:36)
[2021-10-09] MEDS: SODIUM CHLORIDE 0.9% 1,000 ML IV SCH ×4 (05:36→21:03)
[2021-10-09] MEDS: LEVOTHYROXINE 50 MCG TABLET PO SCH (05:36)
[2021-10-09] MEDS: ONDANSETRON 4 MG/2 ML VIAL IV PRN ×2 (06:03→20:15)
[2021-10-09] MEDS ORDERED: MAGNESIUM SULF RIDER 2 GM/50 ML PREMIX IV ONE (07:52)
[2021-10-09] MEDS: SODIUM BICARBONATE 650 MG TABLET PO SCH ×2 (09:04→21:03)
[2021-10-09] MEDS: levETIRAcetam 500 MG TABLET PO SCH ×2 (09:04→21:03)
[2021-10-09] MEDS: PANTOPRAZOLE 40 MG TABLET PO SCH (09:04)
[2021-10-09] MEDS: DESITIN 4OZ/NYSTATIN 15 GRAM MIXTURE PASTE TOP SCH ×2 (09:05→21:05)
[2021-10-09] MEDS: FOLIC ACID 1 MG TABLET PO SCH (09:05)
[2021-10-09] MEDS: NYSTATIN CREAM 15 GM TUBE TOP SCH ×3 (09:05→21:05)
[2021-10-09] MEDS: CALCIUM CARBONATE CHEW 500 MG TABLET PO PRN (17:07)
[2021-10-10] MEDS: LEVOTHYROXINE 50 MCG TABLET PO SCH (05:52)
[2021-10-10 06:19] LABS: Basophils % 0.3 % (0.0-0.8); Eosinophils # 0.1 10*3/uL (0.0-0.87); Eosinophils % 0.8 % (0.00-10.9); Hematocrit 37.5 VOL% (35.7-47.0); Hemoglobin 11.5 GM/DL (12.0-16.0); Immature Granulocytes % 0.4 %; Immature Granulocytes Absolute 0.05 #; Mean Corpuscular HGB Conc 30.7 GM/DL (32-36); Mean Corpuscular Volume 101.4 FL (87-102); Mean Platelet Volume 9.6 FL (9.6-12.0); Monocytes % 7.7 % (1.7-12.7); Neutrophils % 72.8 % (38.7-73.9); Platelet Count 347 T/CUMM (130-400); Red Cell Distribution Width 18.5 % (9.3-17.3); White Blood Count 11.4 T/CUMM (4-12)
[2021-10-10 06:26] LABS: Calcium 7.8 MG/DL (8.5-10.1); Osmolality,Calculated 281.3 MOS/KG (273-304); Potassium 4.3 MMOL/L (3.5-5.1)
[2021-10-10] MEDS: FOLIC ACID 1 MG TABLET PO SCH (09:33)
[2021-10-10] MEDS: HYDROCORTISONE 100 MG VIAL IV SCH (09:33)
[2021-10-10] MEDS: levETIRAcetam 500 MG TABLET PO SCH ×2 (09:34→22:04)
[2021-10-10] MEDS: SODIUM BICARBONATE 650 MG TABLET PO SCH ×2 (09:34→22:03)
[2021-10-10] MEDS: NYSTATIN CREAM 15 GM TUBE TOP SCH ×3 (09:35→22:06)
[2021-10-10] MEDS: DESITIN 4OZ/NYSTATIN 15 GRAM MIXTURE PASTE TOP SCH ×2 (09:35→22:07)
[2021-10-10] MEDS: PANTOPRAZOLE 40 MG TABLET PO SCH (09:35)
[2021-10-10] MEDS: SODIUM CHLORIDE 0.9% 1,000 ML IV SCH ×2 (09:44→22:06)
[2021-10-10] MEDS: ONDANSETRON 4 MG/2 ML VIAL IV PRN ×2 (12:58→17:53)
[2021-10-10] MEDS: ACETAMINOPHEN 325 MG TABLET PO PRN (13:02)
[2021-10-11] MEDS: ONDANSETRON 4 MG/2 ML VIAL IV PRN ×3 (00:19→21:45)
[2021-10-11] MEDS: LEVOTHYROXINE 50 MCG TABLET PO SCH (06:13)
[2021-10-11] MEDS: ACETAMINOPHEN 325 MG TABLET PO PRN ×2 (06:16→12:02)
[2021-10-11] MEDS: CALCIUM CARBONATE CHEW 500 MG TABLET PO PRN (08:25)
[2021-10-11] MEDS: FOLIC ACID 1 MG TABLET PO SCH (10:27)
[2021-10-11] MEDS: levETIRAcetam 500 MG TABLET PO SCH ×2 (10:27→20:58)
[2021-10-11] MEDS: PANTOPRAZOLE 40 MG TABLET PO SCH (10:27)
[2021-10-11] MEDS: DESITIN 4OZ/NYSTATIN 15 GRAM MIXTURE PASTE TOP SCH ×2 (10:27→20:59)
[2021-10-11] MEDS: NYSTATIN CREAM 15 GM TUBE TOP SCH ×3 (10:27→20:59)
[2021-10-11] MEDS: SODIUM BICARBONATE 650 MG TABLET PO SCH ×2 (10:28→20:58)
[2021-10-11] MEDS: HYDROCORTISONE 100 MG VIAL IV SCH (10:28)
[2021-10-11 16:49] LABS: Basophils % 0.1 % (0.0-0.8); Hematocrit 33.1 VOL% (35.7-47.0); Hemoglobin 10.2 GM/DL (12.0-16.0); Immature Granulocytes % 0.5 %; Immature Granulocytes Absolute 0.05 #; Lymphocytes # 0.8 10*3/uL (1.4-4.0); Lymphocytes % 8.8 % (21.3-54.2); Mean Corpuscular HGB Conc 30.8 GM/DL (32-36); Mean Corpuscular Volume 97.6 FL (87-102); Mean Platelet Volume 9.4 FL (9.6-12.0); Monocytes % 3.7 % (1.7-12.7); Neutrophils % 86.9 % (38.7-73.9); Platelet Count 293 T/CUMM (130-400); Red Blood Count 3.39 MC/CUMM (3.8-5.5); Red Cell Distribution Width 18.6 % (9.3-17.3); White Blood Count 9.6 T/CUMM (4-12)
[2021-10-11 17:09] LABS: Albumin 1.6 G/DL (3.4-5.0); Bilirubin,Total 0.4 MG/DL (0.20-1.00); Calcium 7.9 MG/DL (8.5-10.1); Osmolality,Calculated 276.7 MOS/KG (273-304); Potassium 3.8 MMOL/L (3.5-5.1); Total Protein 5.2 G/DL (6.4-8.2)
[2021-10-12] MEDS: LEVOTHYROXINE 50 MCG TABLET PO SCH (06:05)
[2021-10-12 06:37] LABS: Basophils # 0.1 10*3/uL (0.0-0.2); Basophils % 0.5 % (0.0-0.8); Eosinophils # 0.1 10*3/uL (0.0-0.87); Eosinophils % 1.2 % (0.00-10.9); Hematocrit 38.3 VOL% (35.7-47.0); Immature Granulocytes % 0.4 %; Immature Granulocytes Absolute 0.04 #; Lymphocytes # 2.9 10*3/uL (1.4-4.0); Lymphocytes % 27.9 % (21.3-54.2); Mean Corpuscular HGB Conc 31.3 GM/DL (32-36); Mean Corpuscular Volume 96.2 FL (87-102); Mean Platelet Volume 9.7 FL (9.6-12.0); Platelet Count 364 T/CUMM (130-400); Red Blood Count 3.98 MC/CUMM (3.8-5.5); Red Cell Distribution Width 18.5 % (9.3-17.3); White Blood Count 10.3 T/CUMM (4-12)
[2021-10-12 07:23] LABS: Albumin 1.7 G/DL (3.4-5.0); Bilirubin,Total 0.5 MG/DL (0.20-1.00); Calcium 8.1 MG/DL (8.5-10.1); Osmolality,Calculated 274.7 MOS/KG (273-304); Potassium 3.6 MMOL/L (3.5-5.1); Total Protein 5.7 G/DL (6.4-8.2)
[2021-10-12] MEDS: FOLIC ACID 1 MG TABLET PO SCH (09:43)
[2021-10-12] MEDS: HYDROCORTISONE 100 MG VIAL IV SCH (09:43)
[2021-10-12] MEDS: SODIUM BICARBONATE 650 MG TABLET PO SCH ×2 (09:43→20:34)
[2021-10-12] MEDS: levETIRAcetam 500 MG TABLET PO SCH ×2 (09:43→20:34)
[2021-10-12] MEDS: PANTOPRAZOLE 40 MG TABLET PO SCH (09:43)
[2021-10-12] MEDS: NYSTATIN CREAM 15 GM TUBE TOP SCH ×3 (10:21→20:38)
[2021-10-12] MEDS: DESITIN 4OZ/NYSTATIN 15 GRAM MIXTURE PASTE TOP SCH ×2 (10:21→20:38)
[2021-10-12] MEDS ORDERED: MAGNESIUM SULF RIDER 2 GM/50 ML PREMIX IV PRN (11:03)
[2021-10-12] MEDS ORDERED: MAGNESIUM SULF RIDER 4 GM/100 ML PREMIX IV PRN (11:03)
[2021-10-12] MEDS: POTASSIUM CHLORIDE RIDER 10 MEQ/100 ML PREMIX IV PRN ×2 (15:48→16:39)
[2021-10-12] MEDS: ACETAMINOPHEN 325 MG TABLET PO PRN (18:20)
[2021-10-12] MEDS: RIFAXIMIN 550 MG TABLET PO SCH (20:34)
[2021-10-13] MEDS: ACETAMINOPHEN 325 MG TABLET PO PRN ×2 (02:26→22:04)
[2021-10-13 06:03] LABS: Basophils % 0.3 % (0.0-0.8); Eosinophils # 0.2 10*3/uL (0.0-0.87); Eosinophils % 1.6 % (0.00-10.9); Hemoglobin 10.3 GM/DL (12.0-16.0); Immature Granulocytes % 0.5 %; Immature Granulocytes Absolute 0.06 #; Lymphocytes % 25.3 % (21.3-54.2); Mean Corpuscular HGB Conc 31.2 GM/DL (32-36); Mean Corpuscular Volume 97.6 FL (87-102); Mean Platelet Volume 9.8 FL (9.6-12.0); Monocytes % 7.4 % (1.7-12.7); Neutrophils % 64.9 % (38.7-73.9); Platelet Count 334 T/CUMM (130-400); Red Blood Count 3.38 MC/CUMM (3.8-5.5); Red Cell Distribution Width 18.6 % (9.3-17.3)
[2021-10-13] MEDS: LEVOTHYROXINE 50 MCG TABLET PO SCH (06:12)
[2021-10-13 06:42] LABS: Albumin 1.2 G/DL (3.4-5.0); Bilirubin,Total 0.9 MG/DL (0.20-1.00); Calcium 7.8 MG/DL (8.5-10.1); Potassium 5.1 MMOL/L (3.5-5.1); Total Protein 5.2 G/DL (6.4-8.2)
[2021-10-13] MEDS: PANTOPRAZOLE 40 MG TABLET PO SCH (09:23)
[2021-10-13] MEDS: FOLIC ACID 1 MG TABLET PO SCH (09:23)
[2021-10-13] MEDS: CALCIUM CARBONATE CHEW 500 MG TABLET PO PRN ×2 (09:23→18:15)
[2021-10-13] MEDS: SODIUM BICARBONATE 650 MG TABLET PO SCH ×2 (09:23→22:04)
[2021-10-13] MEDS: RIFAXIMIN 550 MG TABLET PO SCH ×2 (09:23→22:04)
[2021-10-13] MEDS: levETIRAcetam 500 MG TABLET PO SCH ×2 (09:23→22:04)
[2021-10-13] MEDS: ONDANSETRON 4 MG/2 ML VIAL IV PRN (09:24)
[2021-10-13] MEDS: HYDROCORTISONE 100 MG VIAL IV SCH (09:24)
[2021-10-13] MEDS: DESITIN 4OZ/NYSTATIN 15 GRAM MIXTURE PASTE TOP SCH ×2 (09:26→22:05)
[2021-10-13] MEDS: NYSTATIN CREAM 15 GM TUBE TOP SCH ×3 (09:34→22:05)
[2021-10-14 05:36] LABS: Basophils % 0.5 % (0.0-0.8); Eosinophils # 0.1 10*3/uL (0.0-0.87); Eosinophils % 1.4 % (0.00-10.9); Hematocrit 32.4 VOL% (35.7-47.0); Hemoglobin 10.2 GM/DL (12.0-16.0); Immature Granulocytes % 0.5 %; Immature Granulocytes Absolute 0.04 #; Lymphocytes # 2.7 10*3/uL (1.4-4.0); Lymphocytes % 31.5 % (21.3-54.2); Mean Corpuscular HGB Conc 31.5 GM/DL (32-36); Mean Corpuscular Volume 96.4 FL (87-102); Mean Platelet Volume 9.4 FL (9.6-12.0); Monocytes % 6.1 % (1.7-12.7); Platelet Count 292 T/CUMM (130-400); Red Blood Count 3.36 MC/CUMM (3.8-5.5); Red Cell Distribution Width 18.6 % (9.3-17.3); White Blood Count 8.6 T/CUMM (4-12)
[2021-10-14] MEDS: LEVOTHYROXINE 50 MCG TABLET PO SCH (05:42)
[2021-10-14 05:59] LABS: Albumin 1.6 G/DL (3.4-5.0); Bilirubin,Total 0.8 MG/DL (0.20-1.00); Calcium 8.3 MG/DL (8.5-10.1); Potassium 4.4 MMOL/L (3.5-5.1); Total Protein 5.2 G/DL (6.4-8.2)
[2021-10-14 08:27] LABS: Free T4 (Free Thyroxine) 1.19 NG/DL (0.76-1.46)
[2021-10-14] MEDS: RIFAXIMIN 550 MG TABLET PO SCH ×2 (09:55→21:43)
[2021-10-14] MEDS: FOLIC ACID 1 MG TABLET PO SCH (09:55)
[2021-10-14] MEDS: levETIRAcetam 500 MG TABLET PO SCH ×2 (09:55→21:44)
[2021-10-14] MEDS: SODIUM BICARBONATE 650 MG TABLET PO SCH ×2 (09:56→21:44)
[2021-10-14] MEDS: predniSONE 20 MG TABLET PO SCH (09:56)
[2021-10-14] MEDS: PANTOPRAZOLE 40 MG TABLET PO SCH (09:56)
[2021-10-14] MEDS: NYSTATIN CREAM 15 GM TUBE TOP SCH ×3 (09:57→21:45)
[2021-10-14] MEDS: DESITIN 4OZ/NYSTATIN 15 GRAM MIXTURE PASTE TOP SCH ×2 (09:57→21:46)
[2021-10-14] MEDS: ONDANSETRON 4 MG/2 ML VIAL IV PRN (14:32)
[2021-10-14] MEDS: ACETAMINOPHEN 325 MG TABLET PO PRN (17:05)
[2021-10-15] MEDS: ACETAMINOPHEN 325 MG TABLET PO PRN ×2 (02:00→08:48)
[2021-10-15] MEDS: ONDANSETRON 4 MG/2 ML VIAL IV PRN ×3 (02:54→20:44)
[2021-10-15] MEDS: LEVOTHYROXINE 50 MCG TABLET PO SCH (05:35)
[2021-10-15 06:25] LABS: Basophils % 0.3 % (0.0-0.8); Eosinophils % 0.2 % (0.00-10.9); Hematocrit 30.6 VOL% (35.7-47.0); Hemoglobin 9.4 GM/DL (12.0-16.0); Immature Granulocytes % 0.6 %; Immature Granulocytes Absolute 0.06 #; Lymphocytes # 2.3 10*3/uL (1.4-4.0); Lymphocytes % 21.3 % (21.3-54.2); Mean Corpuscular HGB Conc 30.7 GM/DL (32-36); Mean Corpuscular Volume 97.8 FL (87-102); Mean Platelet Volume 9.6 FL (9.6-12.0); Monocytes % 6.2 % (1.7-12.7); Neutrophils % 71.4 % (38.7-73.9); Platelet Count 294 T/CUMM (130-400); Red Blood Count 3.13 MC/CUMM (3.8-5.5); Red Cell Distribution Width 18.4 % (9.3-17.3); White Blood Count 10.8 T/CUMM (4-12)
[2021-10-15 06:37] LABS: Alanine Aminotransferase 43 U/L (13-56); Albumin 1.5 G/DL (3.4-5.0); Alkaline Phosphatase 715 U/L (45-117); Aspartate Amino Transferase 117 U/L (0-37); Bilirubin,Total < 0.39 MG/DL (0.20-1.00); Blood Urea Nitrogen 18 MG/DL (7-18); Carbon Dioxide 17 MMOL/L (21-32); Estimated Glom Filtration Rate 56 ML/MIN; Glucose 78 MG/DL (74-106); Potassium 4.6 MMOL/L (3.5-5.1); Sodium 136 MMOL/L (136-145); Total Protein 5.2 G/DL (6.4-8.2)
[2021-10-15] MEDS: SODIUM BICARBONATE 650 MG TABLET PO SCH ×2 (08:43→20:43)
[2021-10-15] MEDS: FOLIC ACID 1 MG TABLET PO SCH (08:43)
[2021-10-15] MEDS: predniSONE 20 MG TABLET PO SCH (08:43)
[2021-10-15] MEDS: RIFAXIMIN 550 MG TABLET PO SCH ×2 (08:43→20:44)
[2021-10-15] MEDS: PANTOPRAZOLE 40 MG TABLET PO SCH (08:43)
[2021-10-15] MEDS: levETIRAcetam 500 MG TABLET PO SCH ×2 (08:43→20:44)
[2021-10-15] MEDS: DESITIN 4OZ/NYSTATIN 15 GRAM MIXTURE PASTE TOP SCH ×2 (08:54→20:44)
[2021-10-15] MEDS: NYSTATIN CREAM 15 GM TUBE TOP SCH ×3 (08:54→20:44)
[2021-10-15] MEDS: diphenhydrAMINE CAP 25 MG CAPSULE PO PRN ×2 (13:34→21:01)
[2021-10-15] MEDS ORDERED: MAGNESIUM SULF RIDER 2 GM/50 ML PREMIX IV ONE (15:00)
[2021-10-15] MEDS ORDERED: SODIUM BICARBONATE 650 MG TABLET PO ONE (15:00)
[2021-10-15] MEDS: SOTALOL 80 MG TABLET PO SCH (20:43)
[2021-10-16] MEDS: ONDANSETRON 4 MG/2 ML VIAL IV PRN (02:37)
[2021-10-16] MEDS: LEVOTHYROXINE 75 MCG TABLET PO SCH (05:41)
[2021-10-16] MEDS: diphenhydrAMINE CAP 25 MG CAPSULE PO PRN ×2 (05:41→09:40)
[2021-10-16 05:59] LABS: Basophils % 0.2 % (0.0-0.8); Eosinophils % 0.2 % (0.00-10.9); Hematocrit 29.5 VOL% (35.7-47.0); Hemoglobin 9.5 GM/DL (12.0-16.0); Immature Granulocytes % 0.4 %; Immature Granulocytes Absolute 0.04 #; Mean Corpuscular HGB Conc 32.2 GM/DL (32-36); Mean Corpuscular Volume 96.4 FL (87-102); Mean Platelet Volume 9.8 FL (9.6-12.0); Monocytes % 6.4 % (1.7-12.7); Neutrophils % 71.8 % (38.7-73.9); Platelet Count 246 T/CUMM (130-400); Red Blood Count 3.06 MC/CUMM (3.8-5.5); Red Cell Distribution Width 18.5 % (9.3-17.3); White Blood Count 9.7 T/CUMM (4-12)
[2021-10-16 06:02] LABS: Albumin 1.3 G/DL (3.4-5.0); Calcium 8.1 MG/DL (8.5-10.1); Osmolality,Calculated 274.7 MOS/KG (273-304); Potassium 4.7 MMOL/L (3.5-5.1); Total Protein 4.9 G/DL (6.4-8.2)
[2021-10-16] MEDS: levETIRAcetam 500 MG TABLET PO SCH ×2 (09:40→21:13)
[2021-10-16] MEDS: SODIUM BICARBONATE 650 MG TABLET PO SCH ×2 (09:40→21:13)
[2021-10-16] MEDS: predniSONE 20 MG TABLET PO SCH (09:41)
[2021-10-16] MEDS: SOTALOL 80 MG TABLET PO SCH (09:41)
[2021-10-16] MEDS: RIFAXIMIN 550 MG TABLET PO SCH ×2 (09:41→21:13)
[2021-10-16] MEDS: FOLIC ACID 1 MG TABLET PO SCH (09:41)
[2021-10-16] MEDS: NYSTATIN CREAM 15 GM TUBE TOP SCH ×3 (09:41→21:15)
[2021-10-16] MEDS: PANTOPRAZOLE 40 MG TABLET PO SCH (09:41)
[2021-10-16] MEDS: DESITIN 4OZ/NYSTATIN 15 GRAM MIXTURE PASTE TOP SCH ×2 (09:41→21:15)
[2021-10-16] MEDS ORDERED: DEXTROSE 50% 25 GM/50 ML SYRINGE IV ONE (11:28)
[2021-10-17] MEDS: LEVOTHYROXINE 75 MCG TABLET PO SCH (06:12)
[2021-10-17] MEDS: ONDANSETRON 4 MG/2 ML VIAL IV PRN ×2 (06:15→21:47)
[2021-10-17 07:08] LABS: Basophils % 0.2 % (0.0-0.8); Hemoglobin 10.9 GM/DL (12.0-16.0); Immature Granulocytes % 0.3 %; Immature Granulocytes Absolute 0.03 #; Lymphocytes # 1.7 10*3/uL (1.4-4.0); Lymphocytes % 17.6 % (21.3-54.2); Mean Corpuscular HGB Conc 30.3 GM/DL (32-36); Mean Platelet Volume 9.4 FL (9.6-12.0); Monocytes % 5.1 % (1.7-12.7); Neutrophils % 76.8 % (38.7-73.9); Platelet Count 298 T/CUMM (130-400); Red Cell Distribution Width 18.6 % (9.3-17.3); White Blood Count 9.7 T/CUMM (4-12)
[2021-10-17 07:22] LABS: Albumin 1.6 G/DL (3.4-5.0); Bilirubin,Total 0.4 MG/DL (0.20-1.00); Calcium 8.3 MG/DL (8.5-10.1); Potassium 4.9 MMOL/L (3.5-5.1); Total Protein 5.8 G/DL (6.4-8.2)
[2021-10-17] MEDS: DEXTROSE 50% 25 GM/50 ML VIAL IV PRN (07:41)
[2021-10-17] MEDS: RIFAXIMIN 550 MG TABLET PO SCH ×2 (09:44→21:47)
[2021-10-17] MEDS: predniSONE 20 MG TABLET PO SCH (09:44)
[2021-10-17] MEDS: FOLIC ACID 1 MG TABLET PO SCH (09:44)
[2021-10-17] MEDS: PANTOPRAZOLE 40 MG TABLET PO SCH (09:44)
[2021-10-17] MEDS: diphenhydrAMINE CAP 25 MG CAPSULE PO PRN ×2 (09:44→16:03)
[2021-10-17] MEDS: SODIUM BICARBONATE 650 MG TABLET PO SCH ×2 (09:44→21:47)
[2021-10-17] MEDS: levETIRAcetam 500 MG TABLET PO SCH ×2 (09:44→21:47)
[2021-10-17] MEDS: DEXTROSE 5% LACTATED RINGERS 1,000 ML IV SCH (09:45)
[2021-10-17] MEDS: NYSTATIN CREAM 15 GM TUBE TOP SCH ×3 (09:45→21:50)
[2021-10-17] MEDS: DESITIN 4OZ/NYSTATIN 15 GRAM MIXTURE PASTE TOP SCH ×2 (09:45→21:50)
[2021-10-17] MEDS: SOTALOL 80 MG TABLET PO SCH (21:54)
[2021-10-18] MEDS: diphenhydrAMINE CAP 25 MG CAPSULE PO PRN ×4 (01:56→22:08)
[2021-10-18] MEDS: LEVOTHYROXINE 75 MCG TABLET PO SCH (05:44)
[2021-10-18] MEDS: DEXTROSE 5% LACTATED RINGERS 1,000 ML IV SCH ×2 (05:45→17:13)
[2021-10-18] MEDS: ONDANSETRON 4 MG/2 ML VIAL IV PRN (05:48)
[2021-10-18 09:26] LABS: Basophils % 0.1 % (0.0-0.8); Eosinophils # 0.1 10*3/uL (0.0-0.87); Eosinophils % 0.9 % (0.00-10.9); Hematocrit 31.8 VOL% (35.7-47.0); Immature Granulocytes % 0.5 %; Immature Granulocytes Absolute 0.05 #; Lymphocytes # 2.5 10*3/uL (1.4-4.0); Lymphocytes % 24.3 % (21.3-54.2); Mean Corpuscular HGB Conc 31.4 GM/DL (32-36); Mean Corpuscular Volume 99.4 FL (87-102); Mean Platelet Volume 9.4 FL (9.6-12.0); Monocytes % 6.4 % (1.7-12.7); Neutrophils % 67.8 % (38.7-73.9); Platelet Count 284 T/CUMM (130-400); Red Cell Distribution Width 18.5 % (9.3-17.3); White Blood Count 10.1 T/CUMM (4-12)
[2021-10-18 09:41] LABS: Calcium 8.1 MG/DL (8.5-10.1); Osmolality,Calculated 273.8 MOS/KG (273-304); Potassium 4.7 MMOL/L (3.5-5.1)
[2021-10-18] MEDS: levETIRAcetam 500 MG TABLET PO SCH ×2 (10:49→22:01)
[2021-10-18] MEDS: SODIUM BICARBONATE 650 MG TABLET PO SCH ×2 (10:49→22:00)
[2021-10-18] MEDS: predniSONE 10 MG TABLET PO SCH (10:49)
[2021-10-18] MEDS: FOLIC ACID 1 MG TABLET PO SCH (10:49)
[2021-10-18] MEDS: RIFAXIMIN 550 MG TABLET PO SCH ×2 (10:49→22:01)
[2021-10-18] MEDS: PANTOPRAZOLE 40 MG TABLET PO SCH (10:49)
[2021-10-18] MEDS: NYSTATIN CREAM 15 GM TUBE TOP SCH ×3 (10:49→22:03)
[2021-10-18] MEDS: DESITIN 4OZ/NYSTATIN 15 GRAM MIXTURE PASTE TOP SCH ×2 (10:50→22:03)
[2021-10-18] MEDS: SOTALOL 80 MG TABLET PO SCH ×2 (10:50→22:00)
[2021-10-19] MEDS: DEXTROSE 5% LACTATED RINGERS 1,000 ML IV SCH ×2 (02:35→08:29)
[2021-10-19] MEDS: ONDANSETRON 4 MG/2 ML VIAL IV PRN ×2 (03:27→09:27)
[2021-10-19] MEDS: diphenhydrAMINE CAP 25 MG CAPSULE PO PRN ×3 (04:09→18:19)
[2021-10-19 05:09] LABS: Basophils % 0.1 % (0.0-0.8); Eosinophils # 0.1 10*3/uL (0.0-0.87); Hematocrit 32.3 VOL% (35.7-47.0); Hemoglobin 10.1 GM/DL (12.0-16.0); Immature Granulocytes % 0.3 %; Immature Granulocytes Absolute 0.02 #; Lymphocytes # 1.9 10*3/uL (1.4-4.0); Lymphocytes % 25.1 % (21.3-54.2); Mean Corpuscular HGB Conc 31.3 GM/DL (32-36); Mean Corpuscular Volume 99.7 FL (87-102); Mean Platelet Volume 9.5 FL (9.6-12.0); Neutrophils % 68.5 % (38.7-73.9); Platelet Count 267 T/CUMM (130-400); Red Blood Count 3.24 MC/CUMM (3.8-5.5); Red Cell Distribution Width 18.4 % (9.3-17.3); White Blood Count 7.6 T/CUMM (4-12)
[2021-10-19 05:30] LABS: Calcium 8.3 MG/DL (8.5-10.1); Osmolality,Calculated 273.8 MOS/KG (273-304); Potassium 4.8 MMOL/L (3.5-5.1)
[2021-10-19] MEDS: LEVOTHYROXINE 75 MCG TABLET PO SCH (06:00)
[2021-10-19] MEDS: SOTALOL 80 MG TABLET PO SCH ×2 (07:59→21:10)
[2021-10-19] MEDS: SODIUM BICARBONATE 650 MG TABLET PO SCH ×2 (08:24→21:10)
[2021-10-19] MEDS: levETIRAcetam 500 MG TABLET PO SCH ×2 (08:25→21:10)
[2021-10-19] MEDS: predniSONE 10 MG TABLET PO SCH (08:25)
[2021-10-19] MEDS: PANTOPRAZOLE 40 MG TABLET PO SCH (08:25)
[2021-10-19] MEDS: RIFAXIMIN 550 MG TABLET PO SCH ×2 (08:25→21:10)
[2021-10-19] MEDS: FOLIC ACID 1 MG TABLET PO SCH (08:25)
[2021-10-19] MEDS: NYSTATIN CREAM 15 GM TUBE TOP SCH ×3 (08:27→21:10)
[2021-10-19] MEDS: DESITIN 4OZ/NYSTATIN 15 GRAM MIXTURE PASTE TOP SCH ×2 (08:27→21:10)
[2021-10-20] MEDS: diphenhydrAMINE CAP 25 MG CAPSULE PO PRN ×4 (00:49→20:52)
[2021-10-20] MEDS: ONDANSETRON 4 MG/2 ML VIAL IV PRN ×2 (01:53→09:32)
[2021-10-20] MEDS: DEXTROSE 5% LACTATED RINGERS 1,000 ML IV SCH ×2 (02:39→23:11)
[2021-10-20] MEDS: LEVOTHYROXINE 75 MCG TABLET PO SCH (06:46)
[2021-10-20] MEDS: levETIRAcetam 500 MG TABLET PO SCH ×2 (09:24→20:52)
[2021-10-20] MEDS: FOLIC ACID 1 MG TABLET PO SCH (09:24)
[2021-10-20] MEDS: SODIUM BICARBONATE 650 MG TABLET PO SCH ×2 (09:24→20:52)
[2021-10-20] MEDS: PANTOPRAZOLE 40 MG TABLET PO SCH (09:24)
[2021-10-20] MEDS: NYSTATIN CREAM 15 GM TUBE TOP SCH ×3 (09:25→20:52)
[2021-10-20] MEDS: DESITIN 4OZ/NYSTATIN 15 GRAM MIXTURE PASTE TOP SCH ×2 (09:25→20:52)
[2021-10-20] MEDS: SOTALOL 80 MG TABLET PO SCH ×2 (09:25→20:52)
[2021-10-20] MEDS: predniSONE 10 MG TABLET PO SCH (09:25)
[2021-10-21] MEDS: diphenhydrAMINE CAP 25 MG CAPSULE PO PRN ×3 (04:45→22:19)
[2021-10-21] MEDS: LEVOTHYROXINE 75 MCG TABLET PO SCH (06:15)
[2021-10-21 06:55] LABS: Calcium 7.6 MG/DL (8.5-10.1); Osmolality,Calculated 274.5 MOS/KG (273-304); Potassium 4.6 MMOL/L (3.5-5.1)
[2021-10-21 07:03] LABS: Alanine Aminotransferase 25 U/L (13-56); Albumin 1.1 G/DL (3.4-5.0); Alkaline Phosphatase 577 U/L (45-117); Aspartate Amino Transferase 42 U/L (0-37); Bilirubin,Total < 0.39 MG/DL (0.20-1.00); Blood Urea Nitrogen 14 MG/DL (7-18); Calcium 7.6 MG/DL (8.5-10.1); Carbon Dioxide 19 MMOL/L (21-32); Estimated Glom Filtration Rate 79 ML/MIN; Glucose 55 MG/DL (74-106); Osmolality,Calculated 271.8 MOS/KG (273-304); Potassium 4.4 MMOL/L (3.5-5.1); Sodium 137 MMOL/L (136-145); Total Protein 4.6 G/DL (6.4-8.2)
[2021-10-21] MEDS: ONDANSETRON 4 MG/2 ML VIAL IV PRN ×2 (08:08→17:53)
[2021-10-21] MEDS: levETIRAcetam 500 MG TABLET PO SCH ×2 (08:08→20:51)
[2021-10-21] MEDS: FOLIC ACID 1 MG TABLET PO SCH (08:08)
[2021-10-21] MEDS: SODIUM BICARBONATE 650 MG TABLET PO SCH ×2 (08:08→20:51)
[2021-10-21] MEDS: PANTOPRAZOLE 40 MG TABLET PO SCH (08:08)
[2021-10-21] MEDS: SOTALOL 80 MG TABLET PO SCH ×2 (08:08→20:52)
[2021-10-21] MEDS: predniSONE 10 MG TABLET PO SCH (08:08)
[2021-10-21] MEDS: NYSTATIN CREAM 15 GM TUBE TOP SCH ×3 (08:15→20:53)
[2021-10-21 09:13] LABS: Basophils % 0.2 % (0.0-0.8); Eosinophils # 0.2 10*3/uL (0.0-0.87); Eosinophils % 1.9 % (0.00-10.9); Hematocrit 33.9 VOL% (35.7-47.0); Hemoglobin 10.6 GM/DL (12.0-16.0); Immature Granulocytes % 0.5 %; Immature Granulocytes Absolute 0.05 #; Lymphocytes # 2.2 10*3/uL (1.4-4.0); Lymphocytes % 23.4 % (21.3-54.2); Mean Corpuscular HGB Conc 31.3 GM/DL (32-36); Mean Corpuscular Volume 99.4 FL (87-102); Mean Platelet Volume 10.2 FL (9.6-12.0); Monocytes % 5.9 % (1.7-12.7); Neutrophils % 68.1 % (38.7-73.9); Platelet Count 230 T/CUMM (130-400); Red Blood Count 3.41 MC/CUMM (3.8-5.5); Red Cell Distribution Width 18.3 % (9.3-17.3); White Blood Count 9.4 T/CUMM (4-12)
[2021-10-21] MEDS: DEXTROSE 5% LACTATED RINGERS 1,000 ML IV SCH (16:42)
[2021-10-21] MEDS: DESITIN 4OZ/NYSTATIN 15 GRAM MIXTURE PASTE TOP SCH ×2 (17:04→20:53)
[2021-10-22] MEDS: ONDANSETRON 4 MG/2 ML VIAL IV PRN ×3 (01:44→14:50)
[2021-10-22 05:18] LABS: Basophils % 0.2 % (0.0-0.8); Eosinophils # 0.1 10*3/uL (0.0-0.87); Eosinophils % 1.1 % (0.00-10.9); Hematocrit 30.5 VOL% (35.7-47.0); Hemoglobin 9.5 GM/DL (12.0-16.0); Immature Granulocytes % 0.5 %; Immature Granulocytes Absolute 0.04 #; Lymphocytes # 1.8 10*3/uL (1.4-4.0); Lymphocytes % 21.8 % (21.3-54.2); Mean Corpuscular HGB Conc 31.1 GM/DL (32-36); Mean Platelet Volume 9.3 FL (9.6-12.0); Monocytes % 6.3 % (1.7-12.7); Neutrophils % 70.1 % (38.7-73.9); Platelet Count 235 T/CUMM (130-400); Red Blood Count 3.05 MC/CUMM (3.8-5.5); Red Cell Distribution Width 18.3 % (9.3-17.3); White Blood Count 8.2 T/CUMM (4-12)
[2021-10-22 05:37] LABS: Alanine Aminotransferase 21 U/L (13-56); Albumin 1.1 G/DL (3.4-5.0); Alkaline Phosphatase 489 U/L (45-117); Aspartate Amino Transferase 34 U/L (0-37); Bilirubin,Total < 0.39 MG/DL (0.20-1.00); Blood Urea Nitrogen 13 MG/DL (7-18); Carbon Dioxide 22 MMOL/L (21-32); Estimated Glom Filtration Rate 91 ML/MIN; Glucose 65 MG/DL (74-106); Osmolality,Calculated 274.5 MOS/KG (273-304); Potassium 4.8 MMOL/L (3.5-5.1); Sodium 139 MMOL/L (136-145); Total Protein 4.2 G/DL (6.4-8.2)
[2021-10-22] MEDS: LEVOTHYROXINE 75 MCG TABLET PO SCH (05:39)
[2021-10-22] MEDS: diphenhydrAMINE CAP 25 MG CAPSULE PO PRN ×2 (05:39→14:49)
[2021-10-22] MEDS: SOTALOL 80 MG TABLET PO SCH ×3 (09:27→23:41)
[2021-10-22] MEDS: SODIUM BICARBONATE 650 MG TABLET PO SCH ×2 (09:27→20:54)
[2021-10-22] MEDS: PANTOPRAZOLE 40 MG TABLET PO SCH (09:27)
[2021-10-22] MEDS: levETIRAcetam 500 MG TABLET PO SCH ×2 (09:27→20:54)
[2021-10-22] MEDS: predniSONE 10 MG TABLET PO SCH (09:27)
[2021-10-22] MEDS: FOLIC ACID 1 MG TABLET PO SCH (09:29)
[2021-10-22] MEDS: NYSTATIN CREAM 15 GM TUBE TOP SCH ×3 (09:32→20:56)
[2021-10-22] MEDS: DESITIN 4OZ/NYSTATIN 15 GRAM MIXTURE PASTE TOP SCH ×2 (09:32→20:55)
[2021-10-22] MEDS: DEXTROSE 5% LACTATED RINGERS 1,000 ML IV SCH (12:14)
[2021-10-22] MEDS ORDERED: LACTULOSE 20 GM/30 ML UDCUP PO PRN (15:16)
[2021-10-22 16:03] LABS: Folate 20.96 NG/ML (5.38-24.0)
[2021-10-22 16:10] LABS: % Iron Saturation 26.9 % (18-50)
[2021-10-22] MEDS: FUROSEMIDE 20 MG/2 ML VIAL IV SCH (16:59)
[2021-10-22] MEDS: RIFAXIMIN 550 MG TABLET PO SCH (20:54)
[2021-10-22] MEDS: MIDODRINE 5 MG TABLET PO SCH (20:54)
[2021-10-22] MEDS ORDERED: MIDODRINE 5 MG TABLET PO SCH (21:00)
[2021-10-23] MEDS: ACETAMINOPHEN 325 MG TABLET PO PRN (00:29)
[2021-10-23] MEDS: diphenhydrAMINE CAP 25 MG CAPSULE PO PRN ×3 (00:29→21:58)
[2021-10-23] MEDS: CALCIUM CARBONATE CHEW 500 MG TABLET PO PRN (05:04)
[2021-10-23] MEDS: LEVOTHYROXINE 75 MCG TABLET PO SCH (05:34)
[2021-10-23] MEDS: FUROSEMIDE 20 MG/2 ML VIAL IV SCH ×2 (08:26→15:38)
[2021-10-23] MEDS: predniSONE 10 MG TABLET PO SCH (08:30)
[2021-10-23] MEDS: SODIUM BICARBONATE 650 MG TABLET PO SCH ×2 (08:30→21:58)
[2021-10-23] MEDS: SPIRONOLACTONE 25 MG TABLET PO SCH (08:31)
[2021-10-23] MEDS: PANTOPRAZOLE 40 MG TABLET PO SCH (08:31)
[2021-10-23] MEDS: levETIRAcetam 500 MG TABLET PO SCH ×2 (08:31→21:58)
[2021-10-23] MEDS: MIDODRINE 5 MG TABLET PO SCH ×3 (08:31→21:58)
[2021-10-23] MEDS: FOLIC ACID 1 MG TABLET PO SCH (08:31)
[2021-10-23] MEDS: RIFAXIMIN 550 MG TABLET PO SCH ×2 (08:31→21:58)
[2021-10-23] MEDS: NYSTATIN CREAM 15 GM TUBE TOP SCH ×3 (08:35→22:01)
[2021-10-23] MEDS: DESITIN 4OZ/NYSTATIN 15 GRAM MIXTURE PASTE TOP SCH ×2 (08:35→22:00)
[2021-10-23] MEDS: ONDANSETRON 4 MG/2 ML VIAL IV PRN ×2 (08:40→22:14)
[2021-10-23] MEDS: SOTALOL 80 MG TABLET PO SCH (08:42)
[2021-10-23 12:37] LABS: Basophils % 0.2 % (0.0-0.8); Eosinophils # 0.1 10*3/uL (0.0-0.87); Eosinophils % 0.7 % (0.00-10.9); Hematocrit 32.4 VOL% (35.7-47.0); Hemoglobin 10.1 GM/DL (12.0-16.0); Immature Granulocytes % 0.7 %; Immature Granulocytes Absolute 0.06 #; Lymphocytes # 1.4 10*3/uL (1.4-4.0); Lymphocytes % 15.5 % (21.3-54.2); Mean Corpuscular HGB Conc 31.2 GM/DL (32-36); Mean Corpuscular Volume 98.2 FL (87-102); Mean Platelet Volume 9.4 FL (9.6-12.0); Monocytes % 6.4 % (1.7-12.7); Neutrophils % 76.5 % (38.7-73.9); Platelet Count 300 T/CUMM (130-400); Red Cell Distribution Width 18.2 % (9.3-17.3); White Blood Count 8.7 T/CUMM (4-12)
[2021-10-23 13:12] LABS: Alanine Aminotransferase 32 U/L (13-56); Albumin 1.1 G/DL (3.4-5.0); Alkaline Phosphatase 602 U/L (45-117); Aspartate Amino Transferase 108 U/L (0-37); Bilirubin,Total < 0.39 MG/DL (0.20-1.00); Blood Urea Nitrogen 12 MG/DL (7-18); Calcium 7.6 MG/DL (8.5-10.1); Carbon Dioxide 21 MMOL/L (21-32); Estimated Glom Filtration Rate 71 ML/MIN; Glucose 76 MG/DL (74-106); Osmolality,Calculated 273.7 MOS/KG (273-304); Potassium 3.4 MMOL/L (3.5-5.1); Sodium 138 MMOL/L (136-145); Total Protein 4.5 G/DL (6.4-8.2)
[2021-10-24] MEDS: SOTALOL 80 MG TABLET PO SCH ×3 (01:43→21:48)
[2021-10-24 05:19] LABS: Basophils % 0.2 % (0.0-0.8); Eosinophils % 0.4 % (0.00-10.9); Hematocrit 34.2 VOL% (35.7-47.0); Hemoglobin 10.7 GM/DL (12.0-16.0); Immature Granulocytes % 0.7 %; Immature Granulocytes Absolute 0.07 #; Lymphocytes # 2.3 10*3/uL (1.4-4.0); Lymphocytes % 24.2 % (21.3-54.2); Mean Corpuscular HGB Conc 31.3 GM/DL (32-36); Mean Corpuscular Volume 97.7 FL (87-102); Mean Platelet Volume 9.3 FL (9.6-12.0); Monocytes % 6.6 % (1.7-12.7); Neutrophils % 67.9 % (38.7-73.9); Platelet Count 371 T/CUMM (130-400); Red Cell Distribution Width 18.1 % (9.3-17.3); White Blood Count 9.4 T/CUMM (4-12)
[2021-10-24] MEDS: diphenhydrAMINE CAP 25 MG CAPSULE PO PRN ×2 (05:24→08:28)
[2021-10-24 05:41] LABS: Albumin 1.2 G/DL (3.4-5.0); Bilirubin,Total 0.5 MG/DL (0.20-1.00); Calcium 7.7 MG/DL (8.5-10.1); Osmolality,Calculated 274.7 MOS/KG (273-304); Potassium 3.9 MMOL/L (3.5-5.1); Total Protein 4.8 G/DL (6.4-8.2)
[2021-10-24] MEDS: LEVOTHYROXINE 75 MCG TABLET PO SCH (05:45)
[2021-10-24] MEDS: FUROSEMIDE 20 MG/2 ML VIAL IV SCH ×2 (08:18→15:51)
[2021-10-24] MEDS: FOLIC ACID 1 MG TABLET PO SCH (08:19)
[2021-10-24] MEDS: levETIRAcetam 500 MG TABLET PO SCH ×2 (08:19→21:48)
[2021-10-24] MEDS: RIFAXIMIN 550 MG TABLET PO SCH ×2 (08:19→21:48)
[2021-10-24] MEDS: SODIUM BICARBONATE 650 MG TABLET PO SCH ×2 (08:19→21:48)
[2021-10-24] MEDS: predniSONE 10 MG TABLET PO SCH (08:19)
[2021-10-24] MEDS: MIDODRINE 5 MG TABLET PO SCH ×3 (08:19→21:47)
[2021-10-24] MEDS: PANTOPRAZOLE 40 MG TABLET PO SCH (08:20)
[2021-10-24] MEDS: SPIRONOLACTONE 25 MG TABLET PO SCH (08:20)
[2021-10-24] MEDS: DESITIN 4OZ/NYSTATIN 15 GRAM MIXTURE PASTE TOP SCH ×2 (08:24→22:42)
[2021-10-24] MEDS: NYSTATIN CREAM 15 GM TUBE TOP SCH ×3 (08:24→21:51)
[2021-10-24] MEDS: ONDANSETRON 4 MG/2 ML VIAL IV PRN ×2 (08:28→22:02)
[2021-10-25 05:37] LABS: Basophils % 0.3 % (0.0-0.8); Eosinophils # 0.1 10*3/uL (0.0-0.87); Eosinophils % 0.4 % (0.00-10.9); Hematocrit 33.3 VOL% (35.7-47.0); Hemoglobin 11.1 GM/DL (12.0-16.0); Immature Granulocytes % 0.6 %; Immature Granulocytes Absolute 0.07 #; Lymphocytes # 2.9 10*3/uL (1.4-4.0); Lymphocytes % 24.9 % (21.3-54.2); Mean Corpuscular HGB Conc 33.3 GM/DL (32-36); Mean Corpuscular Volume 96.5 FL (87-102); Mean Platelet Volume 9.5 FL (9.6-12.0); Monocytes % 7.3 % (1.7-12.7); Neutrophils % 66.5 % (38.7-73.9); Platelet Count 356 T/CUMM (130-400); Red Blood Count 3.45 MC/CUMM (3.8-5.5); Red Cell Distribution Width 18.1 % (9.3-17.3); White Blood Count 11.7 T/CUMM (4-12)
[2021-10-25 05:55] LABS: Calcium 7.7 MG/DL (8.5-10.1); Osmolality,Calculated 277.4 MOS/KG (273-304); Potassium 3.6 MMOL/L (3.5-5.1)
[2021-10-25] MEDS: LEVOTHYROXINE 75 MCG TABLET PO SCH (06:01)
[2021-10-25] MEDS: diphenhydrAMINE CAP 25 MG CAPSULE PO PRN ×3 (06:06→17:50)
[2021-10-25] MEDS: FUROSEMIDE 20 MG/2 ML VIAL IV SCH ×2 (10:32→17:44)
[2021-10-25] MEDS: SOTALOL 80 MG TABLET PO SCH ×2 (10:33→22:29)
[2021-10-25] MEDS: RIFAXIMIN 550 MG TABLET PO SCH ×2 (10:33→22:29)
[2021-10-25] MEDS: FOLIC ACID 1 MG TABLET PO SCH (10:33)
[2021-10-25] MEDS: MIDODRINE 5 MG TABLET PO SCH ×3 (10:33→22:30)
[2021-10-25] MEDS: levETIRAcetam 500 MG TABLET PO SCH ×2 (10:33→22:29)
[2021-10-25] MEDS: SODIUM BICARBONATE 650 MG TABLET PO SCH ×2 (10:33→22:29)
[2021-10-25] MEDS: predniSONE 10 MG TABLET PO SCH (10:34)
[2021-10-25] MEDS: DESITIN 4OZ/NYSTATIN 15 GRAM MIXTURE PASTE TOP SCH ×2 (10:34→22:31)
[2021-10-25] MEDS: SPIRONOLACTONE 25 MG TABLET PO SCH (10:34)
[2021-10-25] MEDS: PANTOPRAZOLE 40 MG TABLET PO SCH (10:34)
[2021-10-25] MEDS: NYSTATIN CREAM 15 GM TUBE TOP SCH ×3 (10:35→22:30)
[2021-10-25] MEDS: ONDANSETRON 4 MG/2 ML VIAL IV PRN ×2 (17:44→22:43)
[2021-10-25] MEDS: ACETAMINOPHEN 325 MG TABLET PO PRN (23:33)
[2021-10-26] MEDS: LEVOTHYROXINE 75 MCG TABLET PO SCH (06:51)
[2021-10-26] MEDS: ONDANSETRON 4 MG/2 ML VIAL IV PRN ×2 (08:18→17:34)
[2021-10-26] MEDS: diphenhydrAMINE CAP 25 MG CAPSULE PO PRN (10:22)
[2021-10-26] MEDS: FUROSEMIDE 20 MG/2 ML VIAL IV SCH ×2 (10:22→17:32)
[2021-10-26] MEDS: predniSONE 10 MG TABLET PO SCH (10:23)
[2021-10-26] MEDS: FOLIC ACID 1 MG TABLET PO SCH (10:23)
[2021-10-26] MEDS: RIFAXIMIN 550 MG TABLET PO SCH ×2 (10:23→21:36)
[2021-10-26] MEDS: levETIRAcetam 500 MG TABLET PO SCH ×2 (10:23→21:36)
[2021-10-26] MEDS: SODIUM BICARBONATE 650 MG TABLET PO SCH ×2 (10:24→21:36)
[2021-10-26] MEDS: NYSTATIN CREAM 15 GM TUBE TOP SCH ×3 (10:24→21:39)
[2021-10-26] MEDS: SOTALOL 80 MG TABLET PO SCH ×2 (10:24→21:36)
[2021-10-26] MEDS: SPIRONOLACTONE 25 MG TABLET PO SCH (10:25)
[2021-10-26] MEDS: PANTOPRAZOLE 40 MG TABLET PO SCH (11:37)
[2021-10-26] MEDS: DESITIN 4OZ/NYSTATIN 15 GRAM MIXTURE PASTE TOP SCH ×2 (11:37→21:40)
[2021-10-26] MEDS: MIDODRINE 5 MG TABLET PO SCH (11:38)
[2021-10-26] MEDS: MIDODRINE 2.5 MG TABLET PO SCH ×2 (14:03→21:35)
[2021-10-27] MEDS: diphenhydrAMINE CAP 25 MG CAPSULE PO PRN (01:23)
[2021-10-27] MEDS: LEVOTHYROXINE 75 MCG TABLET PO SCH (05:29)
[2021-10-27] MEDS: ONDANSETRON 4 MG/2 ML VIAL IV PRN ×3 (05:33→23:18)
[2021-10-27] MEDS: FUROSEMIDE 20 MG/2 ML VIAL IV SCH ×3 (09:00→16:13)
[2021-10-27] MEDS: NYSTATIN CREAM 15 GM TUBE TOP SCH ×3 (09:38→22:55)
[2021-10-27] MEDS: DESITIN 4OZ/NYSTATIN 15 GRAM MIXTURE PASTE TOP SCH ×2 (09:38→22:56)
[2021-10-27] MEDS: MIDODRINE 2.5 MG TABLET PO SCH ×3 (09:38→22:55)
[2021-10-27] MEDS: levETIRAcetam 500 MG TABLET PO SCH ×2 (09:39→22:55)
[2021-10-27] MEDS: SOTALOL 80 MG TABLET PO SCH ×2 (09:39→22:55)
[2021-10-27] MEDS: PANTOPRAZOLE 40 MG TABLET PO SCH (09:39)
[2021-10-27] MEDS: SODIUM BICARBONATE 650 MG TABLET PO SCH ×2 (09:39→22:55)
[2021-10-27] MEDS: RIFAXIMIN 550 MG TABLET PO SCH ×2 (09:39→22:55)
[2021-10-27] MEDS: SPIRONOLACTONE 25 MG TABLET PO SCH (09:39)
[2021-10-27] MEDS: FOLIC ACID 1 MG TABLET PO SCH (09:39)
[2021-10-27] MEDS: predniSONE 10 MG TABLET PO SCH (09:39)
[2021-10-27] MEDS ORDERED: TISSUE ADHESIVE 1 EACH APPLICATOR TOP ONE (16:26)
[2021-10-28 05:13] LABS: Calcium 7.3 MG/DL (8.5-10.1); Osmolality,Calculated 275.7 MOS/KG (273-304); Potassium 3.9 MMOL/L (3.5-5.1)
[2021-10-28 05:42] LABS: Basophils % 0.2 % (0.0-0.8); Hematocrit 31.7 VOL% (35.7-47.0); Hemoglobin 10.3 GM/DL (12.0-16.0); Immature Granulocytes % 0.6 %; Immature Granulocytes Absolute 0.06 #; Lymphocytes # 2.6 10*3/uL (1.4-4.0); Lymphocytes % 25.3 % (21.3-54.2); Mean Corpuscular HGB Conc 32.5 GM/DL (32-36); Mean Corpuscular Volume 97.2 FL (87-102); Mean Platelet Volume 10.4 FL (9.6-12.0); Monocytes % 7.9 % (1.7-12.7); Platelet Count 206 T/CUMM (130-400); Red Blood Count 3.26 MC/CUMM (3.8-5.5); Red Cell Distribution Width 18.3 % (9.3-17.3); White Blood Count 10.2 T/CUMM (4-12)
[2021-10-28] MEDS: LEVOTHYROXINE 75 MCG TABLET PO SCH (06:22)
[2021-10-28] MEDS: diphenhydrAMINE CAP 25 MG CAPSULE PO PRN ×2 (06:22→22:25)
[2021-10-28] MEDS: FOLIC ACID 1 MG TABLET PO SCH (09:59)
[2021-10-28] MEDS: RIFAXIMIN 550 MG TABLET PO SCH ×2 (09:59→22:30)
[2021-10-28] MEDS: MIDODRINE 2.5 MG TABLET PO SCH ×3 (09:59→22:27)
[2021-10-28] MEDS: levETIRAcetam 500 MG TABLET PO SCH ×2 (09:59→22:30)
[2021-10-28] MEDS: SODIUM BICARBONATE 650 MG TABLET PO SCH ×2 (09:59→22:29)
[2021-10-28] MEDS: PANTOPRAZOLE 40 MG TABLET PO SCH (09:59)
[2021-10-28] MEDS: SPIRONOLACTONE 25 MG TABLET PO SCH (09:59)
[2021-10-28] MEDS: DESITIN 4OZ/NYSTATIN 15 GRAM MIXTURE PASTE TOP SCH ×2 (10:00→22:30)
[2021-10-28] MEDS: FUROSEMIDE 20 MG/2 ML VIAL IV SCH ×2 (10:00→15:40)
[2021-10-28] MEDS: NYSTATIN CREAM 15 GM TUBE TOP SCH ×3 (10:00→22:30)
[2021-10-28] MEDS: ONDANSETRON 4 MG/2 ML VIAL IV PRN ×2 (10:20→22:25)
[2021-10-28] MEDS: SOTALOL 80 MG TABLET PO SCH ×2 (10:20→22:26)
[2021-10-29 05:19] LABS: Basophils % 0.3 % (0.0-0.8); Eosinophils % 0.3 % (0.00-10.9); Hematocrit 32.4 VOL% (35.7-47.0); Hemoglobin 10.5 GM/DL (12.0-16.0); Immature Granulocytes % 0.6 %; Immature Granulocytes Absolute 0.07 #; Lymphocytes # 2.7 10*3/uL (1.4-4.0); Lymphocytes % 24.6 % (21.3-54.2); Mean Corpuscular HGB Conc 32.4 GM/DL (32-36); Mean Corpuscular Volume 95.9 FL (87-102); Monocytes % 6.1 % (1.7-12.7); Neutrophils % 68.1 % (38.7-73.9); Platelet Count 285 T/CUMM (130-400); Red Blood Count 3.38 MC/CUMM (3.8-5.5)
[2021-10-29] MEDS: LEVOTHYROXINE 75 MCG TABLET PO SCH ×2 (05:20→05:54)
[2021-10-29] MEDS: diphenhydrAMINE CAP 25 MG CAPSULE PO PRN ×2 (05:20→16:00)
[2021-10-29 05:41] LABS: Albumin 0.9 G/DL (3.4-5.0); Calcium 7.2 MG/DL (8.5-10.1); Osmolality,Calculated 270.1 MOS/KG (273-304); Potassium 3.2 MMOL/L (3.5-5.1); Total Protein 4.7 G/DL (6.4-8.2)
[2021-10-29] MEDS: DESITIN 4OZ/NYSTATIN 15 GRAM MIXTURE PASTE TOP SCH ×2 (09:45→21:35)
[2021-10-29] MEDS: RIFAXIMIN 550 MG TABLET PO SCH ×2 (09:45→21:35)
[2021-10-29] MEDS: NYSTATIN CREAM 15 GM TUBE TOP SCH ×3 (09:45→21:34)
[2021-10-29] MEDS: levETIRAcetam 500 MG TABLET PO SCH ×2 (09:45→21:36)
[2021-10-29] MEDS: SPIRONOLACTONE 25 MG TABLET PO SCH (09:45)
[2021-10-29] MEDS: SODIUM BICARBONATE 650 MG TABLET PO SCH ×2 (09:45→21:35)
[2021-10-29] MEDS: FOLIC ACID 1 MG TABLET PO SCH (09:45)
[2021-10-29] MEDS: FUROSEMIDE 20 MG/2 ML VIAL IV SCH ×2 (09:45→16:02)
[2021-10-29] MEDS: PANTOPRAZOLE 40 MG TABLET PO SCH (09:45)
[2021-10-29] MEDS: SOTALOL 80 MG TABLET PO SCH ×2 (09:45→21:35)
[2021-10-29] MEDS: MIDODRINE 2.5 MG TABLET PO SCH ×3 (09:45→21:36)
[2021-10-29] MEDS: ONDANSETRON 4 MG/2 ML VIAL IV PRN ×2 (10:35→22:24)
[2021-10-30] MEDS: ACETAMINOPHEN 325 MG TABLET PO PRN ×3 (02:33→22:17)
[2021-10-30] MEDS: diphenhydrAMINE CAP 25 MG CAPSULE PO PRN (05:05)
[2021-10-30] MEDS: LEVOTHYROXINE 75 MCG TABLET PO SCH ×2 (05:06→05:48)
[2021-10-30] MEDS: FUROSEMIDE 20 MG/2 ML VIAL IV SCH ×2 (09:23→15:59)
[2021-10-30] MEDS: SPIRONOLACTONE 25 MG TABLET PO SCH (09:24)
[2021-10-30] MEDS: PANTOPRAZOLE 40 MG TABLET PO SCH (09:24)
[2021-10-30] MEDS: MIDODRINE 2.5 MG TABLET PO SCH ×3 (09:24→21:10)
[2021-10-30] MEDS: FOLIC ACID 1 MG TABLET PO SCH (09:24)
[2021-10-30] MEDS: SOTALOL 80 MG TABLET PO SCH ×2 (09:24→21:53)
[2021-10-30] MEDS: SODIUM BICARBONATE 650 MG TABLET PO SCH ×2 (09:24→21:53)
[2021-10-30] MEDS: levETIRAcetam 500 MG TABLET PO SCH ×2 (09:25→21:53)
[2021-10-30] MEDS: DESITIN 4OZ/NYSTATIN 15 GRAM MIXTURE PASTE TOP SCH ×2 (09:25→21:53)
[2021-10-30] MEDS: NYSTATIN CREAM 15 GM TUBE TOP SCH ×3 (09:25→21:53)
[2021-10-30] MEDS: ONDANSETRON 4 MG/2 ML VIAL IV PRN ×2 (09:30→14:05)
[2021-10-30] MEDS: CALCIUM CARBONATE CHEW 500 MG TABLET PO PRN (18:08)
[2021-10-31] MEDS: ONDANSETRON 4 MG/2 ML VIAL IV PRN ×3 (02:20→20:54)
[2021-10-31] MEDS: LEVOTHYROXINE 75 MCG TABLET PO SCH (06:27)
[2021-10-31] MEDS: SOTALOL 80 MG TABLET PO SCH ×2 (10:10→21:41)
[2021-10-31] MEDS: SPIRONOLACTONE 25 MG TABLET PO SCH (10:10)
[2021-10-31] MEDS: MIDODRINE 2.5 MG TABLET PO SCH ×3 (10:12→21:42)
[2021-10-31] MEDS: levETIRAcetam 500 MG TABLET PO SCH ×2 (10:12→21:41)
[2021-10-31] MEDS: PANTOPRAZOLE 40 MG TABLET PO SCH (10:16)
[2021-10-31] MEDS: SODIUM BICARBONATE 650 MG TABLET PO SCH ×2 (10:16→21:42)
[2021-10-31] MEDS: FOLIC ACID 1 MG TABLET PO SCH (10:16)
[2021-10-31] MEDS: DESITIN 4OZ/NYSTATIN 15 GRAM MIXTURE PASTE TOP SCH ×2 (10:17→21:42)
[2021-10-31] MEDS: FUROSEMIDE 20 MG/2 ML VIAL IV SCH ×2 (10:17→16:18)
[2021-10-31] MEDS: NYSTATIN CREAM 15 GM TUBE TOP SCH ×3 (10:17→21:41)
[2021-10-31] MEDS ORDERED: SODIUM CHLORIDE 0.9% 1,000 ML IV SCH (13:30)
[2021-10-31] MEDS: ACETAMINOPHEN 325 MG TABLET PO PRN (16:18)
[2021-11-01] MEDS: ACETAMINOPHEN 325 MG TABLET PO PRN ×2 (01:18→06:19)
[2021-11-01] MEDS: ONDANSETRON 4 MG/2 ML VIAL IV PRN ×3 (01:38→12:40)
[2021-11-01] MEDS: LEVOTHYROXINE 75 MCG TABLET PO SCH (06:20)
[2021-11-01] MEDS: FUROSEMIDE 20 MG/2 ML VIAL IV SCH (07:27)
[2021-11-01] MEDS ORDERED: SODIUM CHLORIDE 0.9% 250 ML IV ONE (07:33)
[2021-11-01] MEDS ORDERED: ALBUMIN 25% 25 GM/100 ML VIAL IV ONE (07:40)
[2021-11-01] MEDS: SOTALOL 80 MG TABLET PO SCH ×2 (08:21→20:46)
[2021-11-01] MEDS: SPIRONOLACTONE 25 MG TABLET PO SCH (08:21)
[2021-11-01 08:28] LABS: Alanine Aminotransferase 26 U/L (13-56); Albumin 0.9 G/DL (3.4-5.0); Alkaline Phosphatase 606 U/L (45-117); Aspartate Amino Transferase 110 U/L (0-37); Blood Urea Nitrogen 27 MG/DL (7-18); Calcium 6.6 MG/DL (8.5-10.1); Carbon Dioxide 20 MMOL/L (21-32); Estimated Glom Filtration Rate 19 ML/MIN; Glucose 79 MG/DL (74-106); Osmolality,Calculated 276.8 MOS/KG (273-304); Potassium 2.8 MMOL/L (3.5-5.1); Sodium 137 MMOL/L (136-145)
[2021-11-01 08:31] LABS: Basophils % 0.1 % (0.0-0.8); Eosinophils % 0.1 % (0.00-10.9); Hematocrit 28.4 VOL% (35.7-47.0); Hemoglobin 9.3 GM/DL (12.0-16.0); Immature Granulocytes % 0.7 %; Immature Granulocytes Absolute 0.11 #; Lymphocytes # 2.8 10*3/uL (1.4-4.0); Lymphocytes % 17.2 % (21.3-54.2); Mean Corpuscular HGB Conc 32.7 GM/DL (32-36); Mean Platelet Volume 10.4 FL (9.6-12.0); Monocytes % 4.7 % (1.7-12.7); Neutrophils % 77.2 % (38.7-73.9); Platelet Count 147 T/CUMM (130-400); Red Blood Count 2.99 MC/CUMM (3.8-5.5); Red Cell Distribution Width 18.7 % (9.3-17.3); White Blood Count 16.1 T/CUMM (4-12)
[2021-11-01] MEDS: POTASSIUM CHLORIDE 20 MEQ TABLET PO PRN ×5 (09:20→17:52)
[2021-11-01] MEDS: MIDODRINE 2.5 MG TABLET PO SCH ×3 (09:20→20:46)
[2021-11-01] MEDS: PANTOPRAZOLE 40 MG TABLET PO SCH (09:20)
[2021-11-01] MEDS: levETIRAcetam 500 MG TABLET PO SCH ×2 (09:20→20:46)
[2021-11-01] MEDS: DESITIN 4OZ/NYSTATIN 15 GRAM MIXTURE PASTE TOP SCH ×2 (09:21→20:47)
[2021-11-01] MEDS: NYSTATIN CREAM 15 GM TUBE TOP SCH ×3 (09:21→20:47)
[2021-11-01] MEDS: FOLIC ACID 1 MG TABLET PO SCH (09:21)
[2021-11-01] MEDS: SODIUM BICARBONATE 650 MG TABLET PO SCH ×2 (09:34→20:46)
[2021-11-01] MEDS: HYDROCORTISONE 100 MG VIAL IV SCH ×2 (10:44→18:01)
[2021-11-01] MEDS: PHENYLEPHRINE DRIP 40 MG/250 ML PREMIX IV PRN ×3 (10:51→21:08)
[2021-11-01 11:49] LABS: Bilirubin,Urine Negative (Negative); Blood, Urine Negative (Negative); Glucose,Urine (UA) Negative (Negative); Hyaline Casts,Urine 8 /LPF (0-3); Ketones,Urine Negative (Negative); Mucus,Urine Occasional /LPF (Occasional); Nitrite,Urine Negative (Negative); Protein,Urine Negative; RBC,Urine 3 /HPF (0-4); Squamous Epithelial Cell,Urine Occasional /HPF (0-10); Urine Appearance CLEAR (Clear); Urine Color Amber (Yellow); Urine Specific Gravity 1.018 (1.001-1.035); Urine Urobilinogen < 2.0 EU/DL (0.2-1.0)
[2021-11-01] MEDS ORDERED: NOREPINEPHRINE 4 MG/4 ML VIAL IV ONE (14:45)
[2021-11-01] MEDS: NOREPINEPHRINE 8 MG in SODIUM CHLORIDE 0.9% 242 ML IV PRN ×2 (14:51→22:50)
[2021-11-02] MEDS: NICOTINE 21 MG/24 HR PATCH TRANSDERM PRN (09:04)
[2021-11-02] MEDS: NOREPINEPHRINE 8 MG in SODIUM CHLORIDE 0.9% 242 ML IV PRN (11:43)
[2021-11-02] MEDS: HYDROCORTISONE 100 MG VIAL IV SCH ×2 (13:43→18:15)
[2021-11-02] MEDS: FOLIC ACID 1 MG TABLET PO SCH (13:44)
[2021-11-02] MEDS: levETIRAcetam 500 MG TABLET PO SCH ×2 (13:44→21:02)
[2021-11-02] MEDS: SOTALOL 80 MG TABLET PO SCH ×2 (13:44→21:15)
[2021-11-02] MEDS: LEVOTHYROXINE 75 MCG TABLET PO SCH (13:44)
[2021-11-02] MEDS: DESITIN 4OZ/NYSTATIN 15 GRAM MIXTURE PASTE TOP SCH ×2 (13:45→21:03)
[2021-11-02] MEDS: SODIUM BICARBONATE 650 MG TABLET PO SCH ×2 (13:45→21:02)
[2021-11-02] MEDS: PANTOPRAZOLE 40 MG TABLET PO SCH (13:45)
[2021-11-02] MEDS: MIDODRINE 2.5 MG TABLET PO SCH ×3 (13:45→21:02)
[2021-11-02] MEDS: NYSTATIN CREAM 15 GM TUBE TOP SCH ×3 (13:45→21:03)
[2021-11-02] MEDS ORDERED: cefTRIAXone 1,000 MG VIAL IM SCH (14:00)
[2021-11-02 14:57] LABS: Albumin 1.8 G/DL (3.4-5.0); Bilirubin,Total 0.8 MG/DL (0.20-1.00); Calcium 7.2 MG/DL (8.5-10.1); Total Protein 4.9 G/DL (6.4-8.2)
[2021-11-02 14:58] LABS: Osmolality,Calculated 280.8 MOS/KG (273-304); Potassium 4.8 MMOL/L (3.5-5.1)
[2021-11-02] MEDS ORDERED: cefTRIAXone 1,000 MG VIAL IV SCH (15:07)
[2021-11-02] MEDS: diphenhydrAMINE CAP 25 MG CAPSULE PO PRN (15:18)
[2021-11-02] MEDS ORDERED: SODIUM CHLORIDE 0.9% 100 ML IV ONE (15:20)
[2021-11-02] MEDS: cefTRIAXone 1,000 MG in SODIUM CHLORIDE 0.9% 100 ML IV SCH (15:30)
[2021-11-02] MEDS: ALBUMIN 25% 25 GM/100 ML VIAL IV SCH (17:30)
[2021-11-02 20:35] LABS: Basophils % 0.1 % (0.0-0.8); Hematocrit 25.4 VOL% (35.7-47.0); Hemoglobin 7.9 GM/DL (12.0-16.0); Immature Granulocytes % 0.7 %; Immature Granulocytes Absolute 0.15 #; Lymphocytes # 2.5 10*3/uL (1.4-4.0); Lymphocytes % 11.2 % (21.3-54.2); Mean Corpuscular HGB Conc 31.1 GM/DL (32-36); Mean Corpuscular Volume 98.4 FL (87-102); Mean Platelet Volume 9.9 FL (9.6-12.0); Monocytes % 4.3 % (1.7-12.7); Neutrophils % 83.7 % (38.7-73.9); Platelet Count 211 T/CUMM (130-400); Red Blood Count 2.58 MC/CUMM (3.8-5.5); Red Cell Distribution Width 19.5 % (9.3-17.3); White Blood Count 22.8 T/CUMM (4-12)
[2021-11-02 21:18] LABS: Band Neutrophils 2 % (0-10); Lymphocytes 8 % (20-55); Nucleated Red Blood Cells 1 (0-5); Platelet Estimate Adequate; Segmented Neutrophils 87 % (50-85); Total Cells Counted 100
[2021-11-02 21:20] LABS: Anisocytosis Slight; Smudge Cells Few
[2021-11-03] MEDS: ALBUMIN 25% 25 GM/100 ML VIAL IV SCH ×3 (01:15→17:55)
[2021-11-03] MEDS: NOREPINEPHRINE 8 MG in SODIUM CHLORIDE 0.9% 242 ML IV PRN ×2 (01:22→11:00)
[2021-11-03 03:43] LABS: Basophils % 0.1 % (0.0-0.8); Hematocrit 22.1 VOL% (35.7-47.0); Immature Granulocytes % 0.9 %; Immature Granulocytes Absolute 0.19 #; Lymphocytes # 1.8 10*3/uL (1.4-4.0); Lymphocytes % 8.5 % (21.3-54.2); Mean Corpuscular HGB Conc 31.7 GM/DL (32-36); Mean Corpuscular Volume 98.2 FL (87-102); Mean Platelet Volume 9.7 FL (9.6-12.0); Monocytes % 3.4 % (1.7-12.7); Neutrophils % 87.1 % (38.7-73.9); Platelet Count 175 T/CUMM (130-400); Red Blood Count 2.25 MC/CUMM (3.8-5.5); Red Cell Distribution Width 19.8 % (9.3-17.3); White Blood Count 20.9 T/CUMM (4-12)
[2021-11-03] MEDS: HYDROCORTISONE 100 MG VIAL IV SCH ×3 (03:44→18:19)
[2021-11-03] MEDS: cefTRIAXone 1,000 MG in SODIUM CHLORIDE 0.9% 100 ML IV SCH ×2 (03:45→16:10)
[2021-11-03 03:58] LABS: Albumin 3.1 G/DL (3.4-5.0); Bilirubin,Total 0.8 MG/DL (0.20-1.00); Calcium 7.5 MG/DL (8.5-10.1); Osmolality,Calculated 280.7 MOS/KG (273-304); Potassium 4.6 MMOL/L (3.5-5.1); Total Protein 5.3 G/DL (6.4-8.2)
[2021-11-03 04:03] LABS: Hypochromasia 2+; Lymphocytes 6 % (20-55); Microcytosis 1+; Platelet Estimate Adequate; Segmented Neutrophils 92 % (50-85); Total Cells Counted 100
[2021-11-03 04:26] LABS: INR 1.5; PT Patient Result 16.7 SECS (10.5-12.0); Partial Thromboplastin Time 51.5 SECS (23.8-32.1)
[2021-11-03] MEDS: LEVOTHYROXINE 75 MCG TABLET PO SCH (06:41)
[2021-11-03] MEDS: SOTALOL 80 MG TABLET PO SCH ×3 (09:40→21:02)
[2021-11-03] MEDS: SODIUM BICARBONATE 650 MG TABLET PO SCH ×2 (09:41→20:19)
[2021-11-03] MEDS: FOLIC ACID 1 MG TABLET PO SCH (09:41)
[2021-11-03] MEDS: levETIRAcetam 500 MG TABLET PO SCH ×2 (09:41→20:19)
[2021-11-03] MEDS: PANTOPRAZOLE 40 MG TABLET PO SCH (09:42)
[2021-11-03] MEDS: NYSTATIN CREAM 15 GM TUBE TOP SCH ×3 (09:42→20:18)
[2021-11-03] MEDS: MIDODRINE 2.5 MG TABLET PO SCH ×3 (09:42→20:19)
[2021-11-03] MEDS: ONDANSETRON 4 MG/2 ML VIAL IV PRN (09:57)
[2021-11-03] MEDS: diphenhydrAMINE CAP 25 MG CAPSULE PO PRN (09:57)
[2021-11-03] MEDS: NICOTINE 21 MG/24 HR PATCH TRANSDERM PRN (09:58)
[2021-11-03] MEDS ORDERED: LEVOFLOXACIN INJ 750 MG/150 ML PREMIX IV ONE (11:00)
[2021-11-03] MEDS: DESITIN 4OZ/NYSTATIN 15 GRAM MIXTURE PASTE TOP SCH ×2 (13:28→20:18)
[2021-11-03] MEDS ORDERED: MEROPENEM 500 MG in SODIUM CHLORIDE 0.9% 100 ML IV SCH (18:00)
[2021-11-03] MEDS: MEROPENEM 500 MG in SODIUM CHLORIDE 0.9% 100 ML IV SCH (20:19)
[2021-11-03 22:13] LABS: Hematocrit 25.2 VOL% (35.7-47.0); Hemoglobin 7.9 GM/DL (12.0-16.0)
[2021-11-04] MEDS: NOREPINEPHRINE 8 MG in SODIUM CHLORIDE 0.9% 242 ML IV PRN (02:00)
[2021-11-04] MEDS: ALBUMIN 25% 25 GM/100 ML VIAL IV SCH ×3 (02:16→16:40)
[2021-11-04] MEDS: HYDROCORTISONE 100 MG VIAL IV SCH ×3 (02:16→18:20)
[2021-11-04 04:03] LABS: Basophils % 0.1 % (0.0-0.8); Hemoglobin 8.1 GM/DL (12.0-16.0); Immature Granulocytes % 1.5 %; Immature Granulocytes Absolute 0.25 #; Lymphocytes # 1.2 10*3/uL (1.4-4.0); Lymphocytes % 7.5 % (21.3-54.2); Mean Corpuscular HGB Conc 32.4 GM/DL (32-36); Mean Corpuscular Volume 93.3 FL (87-102); Mean Platelet Volume 10.4 FL (9.6-12.0); Monocytes % 3.6 % (1.7-12.7); Neutrophils % 87.3 % (38.7-73.9); Platelet Count 129 T/CUMM (130-400); Red Blood Count 2.68 MC/CUMM (3.8-5.5); Red Cell Distribution Width 19.5 % (9.3-17.3); White Blood Count 16.3 T/CUMM (4-12)
[2021-11-04 04:14] LABS: INR 1.7; PT Patient Result 18.8 SECS (10.5-12.0)
[2021-11-04 04:19] LABS: Albumin 3.9 G/DL (3.4-5.0); Calcium 7.8 MG/DL (8.5-10.1); Osmolality,Calculated 277.8 MOS/KG (273-304); Potassium 4.3 MMOL/L (3.5-5.1); Total Protein 5.6 G/DL (6.4-8.2)
[2021-11-04 04:23] LABS: Lymphocytes 3 % (20-55); Microcytosis 1+; Nucleated Red Blood Cells 1 (0-5); Segmented Neutrophils 92 % (50-85); Total Cells Counted 100
[2021-11-04 04:24] LABS: Anisocytosis 1+; Hypochromasia 1+; Polychromasia Slight; Target Cells Slight
[2021-11-04] MEDS: MEROPENEM 500 MG in SODIUM CHLORIDE 0.9% 100 ML IV SCH ×3 (04:46→20:48)
[2021-11-04] MEDS: LEVOTHYROXINE 75 MCG TABLET PO SCH (05:53)
[2021-11-04] MEDS: DESITIN 4OZ/NYSTATIN 15 GRAM MIXTURE PASTE TOP SCH ×2 (08:00→20:49)
[2021-11-04] MEDS: NYSTATIN CREAM 15 GM TUBE TOP SCH ×3 (08:00→20:49)
[2021-11-04] MEDS: MIDODRINE 2.5 MG TABLET PO SCH ×4 (08:16→20:49)
[2021-11-04] MEDS: PANTOPRAZOLE 40 MG TABLET PO SCH (08:17)
[2021-11-04] MEDS: SODIUM BICARBONATE 650 MG TABLET PO SCH ×2 (08:18→20:49)
[2021-11-04] MEDS: levETIRAcetam 500 MG TABLET PO SCH ×2 (08:18→20:49)
[2021-11-04] MEDS: FOLIC ACID 1 MG TABLET PO SCH (08:19)
[2021-11-04] MEDS: NICOTINE 21 MG/24 HR PATCH TRANSDERM PRN (08:20)
[2021-11-04] MEDS: COLLAGENASE OINT 30 GM TUBE TOP SCH ×2 (08:20→08:54)
[2021-11-04] MEDS: SOTALOL 80 MG TABLET PO SCH ×2 (08:54→20:48)
[2021-11-04] MEDS ORDERED: DEXTROSE 50% 25 GM/50 ML SYRINGE IV ONE (12:15)
[2021-11-04] MEDS: DEXTROSE 50% 25 GM/50 ML VIAL IV PRN (12:23)
[2021-11-04] MEDS: ONDANSETRON 4 MG/2 ML VIAL IV PRN ×2 (12:27→22:02)
[2021-11-04] MEDS: MEGESTROL 400 MG/10 ML UDCUP PO SCH (20:49)
[2021-11-05] MEDS: HYDROCORTISONE 100 MG VIAL IV SCH ×2 (02:15→15:36)
[2021-11-05] MEDS: ALBUMIN 25% 25 GM/100 ML VIAL IV SCH ×3 (02:15→17:45)
[2021-11-05 04:28] LABS: Basophils % 0.1 % (0.0-0.8); Hematocrit 21.8 VOL% (35.7-47.0); Immature Granulocytes % 0.6 %; Immature Granulocytes Absolute 0.08 #; Lymphocytes # 1.3 10*3/uL (1.4-4.0); Lymphocytes % 9.4 % (21.3-54.2); Mean Corpuscular HGB Conc 32.1 GM/DL (32-36); Monocytes % 2.7 % (1.7-12.7); Neutrophils % 87.2 % (38.7-73.9); Red Blood Count 2.32 MC/CUMM (3.8-5.5); Red Cell Distribution Width 20.3 % (9.3-17.3); White Blood Count 13.9 T/CUMM (4-12)
[2021-11-05 04:30] LABS: Platelet Count 100 T/CUMM (130-400)
[2021-11-05] MEDS: MEROPENEM 500 MG in SODIUM CHLORIDE 0.9% 100 ML IV SCH ×3 (04:39→21:20)
[2021-11-05 04:43] LABS: Albumin 3.8 G/DL (3.4-5.0); Bilirubin,Total 1.1 MG/DL (0.20-1.00); Calcium 7.9 MG/DL (8.5-10.1); Osmolality,Calculated 280.7 MOS/KG (273-304); Potassium 4.1 MMOL/L (3.5-5.1); Total Protein 5.4 G/DL (6.4-8.2)
[2021-11-05 04:46] LABS: Lymphocytes 7 % (20-55); Segmented Neutrophils 90 % (50-85); Total Cells Counted 100
[2021-11-05 04:47] LABS: Hypochromasia 1+; Microcytosis 1+; Platelet Estimate Decreased
[2021-11-05] MEDS: ONDANSETRON 4 MG/2 ML VIAL IV PRN ×3 (06:26→19:52)
[2021-11-05] MEDS: LEVOTHYROXINE 75 MCG TABLET PO SCH (06:27)
[2021-11-05] MEDS ORDERED: SODIUM CHLORIDE 0.9% 1,000 ML IV PRN (08:01)
[2021-11-05] MEDS: SODIUM BICARBONATE 650 MG TABLET PO SCH ×2 (08:42→21:25)
[2021-11-05] MEDS: FOLIC ACID 1 MG TABLET PO SCH (08:43)
[2021-11-05] MEDS: MIDODRINE 2.5 MG TABLET PO SCH ×3 (08:43→21:25)
[2021-11-05] MEDS: SOTALOL 80 MG TABLET PO SCH ×2 (08:43→21:25)
[2021-11-05] MEDS: MEGESTROL 400 MG/10 ML UDCUP PO SCH ×2 (08:43→21:25)
[2021-11-05] MEDS: levETIRAcetam 500 MG TABLET PO SCH ×2 (08:43→21:25)
[2021-11-05] MEDS: NICOTINE 21 MG/24 HR PATCH TRANSDERM PRN (08:44)
[2021-11-05] MEDS: LEVOFLOXACIN INJ 500 MG/100 ML PREMIX IV SCH (08:46)
[2021-11-05] MEDS: PANTOPRAZOLE 40 MG TABLET PO SCH (09:00)
[2021-11-05] MEDS: NYSTATIN CREAM 15 GM TUBE TOP SCH ×3 (09:15→22:30)
[2021-11-05] MEDS: COLLAGENASE OINT 30 GM TUBE TOP SCH (09:16)
[2021-11-05] MEDS: SODIUM CHLORIDE 0.9% 1,000 ML IV SCH ×2 (09:50→19:59)
[2021-11-05] MEDS: PANTOPRAZOLE 40 MG VIAL IV SCH (09:50)
[2021-11-05] MEDS ORDERED: LEVOTHYROXINE 100 MCG VIAL IV SCH (12:00)
[2021-11-05] MEDS: DESITIN 4OZ/NYSTATIN 15 GRAM MIXTURE PASTE TOP SCH (15:27)
[2021-11-05 23:03] LABS: Hematocrit 27.4 VOL% (35.7-47.0); Hemoglobin 8.7 GM/DL (12.0-16.0)
[2021-11-06] MEDS: ALBUMIN 25% 25 GM/100 ML VIAL IV SCH ×3 (01:00→17:06)
[2021-11-06] MEDS: HYDROCORTISONE 100 MG VIAL IV SCH ×2 (03:25→14:29)
[2021-11-06] MEDS: DESITIN 4OZ/NYSTATIN 15 GRAM MIXTURE PASTE TOP SCH ×3 (04:51→21:10)
[2021-11-06] MEDS: MEROPENEM 500 MG in SODIUM CHLORIDE 0.9% 100 ML IV SCH (04:58)
[2021-11-06] MEDS: diphenhydrAMINE CAP 25 MG CAPSULE PO PRN ×2 (05:03→21:08)
[2021-11-06 05:07] LABS: Basophils % 0.1 % (0.0-0.8); Hemoglobin 8.3 GM/DL (12.0-16.0); Immature Granulocytes % 1.1 %; Lymphocytes # 0.9 10*3/uL (1.4-4.0); Lymphocytes % 10.2 % (21.3-54.2); Mean Corpuscular HGB Conc 31.9 GM/DL (32-36); Mean Platelet Volume 10.9 FL (9.6-12.0); Monocytes % 3.4 % (1.7-12.7); NRBC # 0.02 10*3/uL; Neutrophils % 85.2 % (38.7-73.9); Platelet Count 75 T/CUMM (130-400); Red Blood Count 2.89 MC/CUMM (3.8-5.5); Red Cell Distribution Width 20.9 % (9.3-17.3); White Blood Count 8.7 T/CUMM (4-12)
[2021-11-06 05:22] LABS: Albumin 4.2 G/DL (3.4-5.0); Bilirubin,Total 2.5 MG/DL (0.20-1.00); Calcium 8.2 MG/DL (8.5-10.1); Osmolality,Calculated 286.3 MOS/KG (273-304); Potassium 3.8 MMOL/L (3.5-5.1); Total Protein 5.8 G/DL (6.4-8.2)
[2021-11-06 05:28] LABS: Lymphocytes 8 % (20-55); Platelet Estimate Decreased; Segmented Neutrophils 92 % (50-85); Total Cells Counted 100
[2021-11-06 05:29] LABS: Hypochromasia 1+; Microcytosis 1+
[2021-11-06] MEDS: MEGESTROL 400 MG/10 ML UDCUP PO SCH ×2 (08:04→21:09)
[2021-11-06] MEDS: LEVOTHYROXINE 100 MCG VIAL IV SCH (08:04)
[2021-11-06] MEDS: MIDODRINE 2.5 MG TABLET PO SCH ×3 (08:04→21:08)
[2021-11-06] MEDS: SODIUM BICARBONATE 650 MG TABLET PO SCH ×2 (08:04→21:09)
[2021-11-06] MEDS: PANTOPRAZOLE 40 MG VIAL IV SCH (08:04)
[2021-11-06] MEDS: COLLAGENASE OINT 30 GM TUBE TOP SCH (08:05)
[2021-11-06] MEDS: FOLIC ACID 1 MG TABLET PO SCH (08:05)
[2021-11-06] MEDS: levETIRAcetam 500 MG TABLET PO SCH ×2 (08:05→21:09)
[2021-11-06] MEDS: NYSTATIN CREAM 15 GM TUBE TOP SCH ×4 (08:05→21:55)
[2021-11-06] MEDS: ONDANSETRON 4 MG/2 ML VIAL IV PRN ×2 (08:25→21:21)
[2021-11-06] MEDS: SOTALOL 80 MG TABLET PO SCH ×2 (08:38→21:10)
[2021-11-06] MEDS ORDERED: MEROPENEM 500 MG in SODIUM CHLORIDE 0.9% 100 ML IV SCH (17:00)
[2021-11-06] MEDS: CALCIUM CARBONATE CHEW 500 MG TABLET PO PRN (21:08)
[2021-11-07] MEDS: ALBUMIN 25% 25 GM/100 ML VIAL IV SCH ×3 (01:00→17:58)
[2021-11-07] MEDS ORDERED: SKIN HEALING OINT (AQUAPHOR) 50 GM TUBE TOP PRN (02:59)
[2021-11-07] MEDS: HYDROCORTISONE 100 MG VIAL IV SCH ×2 (03:20→17:06)
[2021-11-07 04:45] LABS: Basophils % 0.1 % (0.0-0.8); Hematocrit 26.6 VOL% (35.7-47.0); Hemoglobin 8.4 GM/DL (12.0-16.0); Immature Granulocytes % 0.7 %; Immature Granulocytes Absolute 0.06 #; Lymphocytes # 1.2 10*3/uL (1.4-4.0); Lymphocytes % 13.5 % (21.3-54.2); Mean Corpuscular HGB Conc 31.6 GM/DL (32-36); Mean Corpuscular Volume 90.5 FL (87-102); Mean Platelet Volume 12.4 FL (9.6-12.0); Monocytes % 4.4 % (1.7-12.7); NRBC # 0.02 10*3/uL; Neutrophils % 81.3 % (38.7-73.9); Platelet Count 72 T/CUMM (130-400); Red Blood Count 2.94 MC/CUMM (3.8-5.5); Red Cell Distribution Width 21.7 % (9.3-17.3); White Blood Count 8.5 T/CUMM (4-12)
[2021-11-07 05:12] LABS: Albumin 4.1 G/DL (3.4-5.0); Calcium 8.4 MG/DL (8.5-10.1); Osmolality,Calculated 288.1 MOS/KG (273-304); Potassium 3.7 MMOL/L (3.5-5.1); Total Protein 5.5 G/DL (6.4-8.2)
[2021-11-07 05:24] LABS: Band Neutrophils 1 % (0-10); Lymphocytes 4 % (20-55); Nucleated Red Blood Cells 1 (0-5); Platelet Estimate Decreased; Segmented Neutrophils 92 % (50-85); Total Cells Counted 100
[2021-11-07 05:25] LABS: Hypochromasia Slight
[2021-11-07] MEDS: levETIRAcetam 500 MG TABLET PO SCH ×2 (08:23→23:09)
[2021-11-07] MEDS: FOLIC ACID 1 MG TABLET PO SCH (08:23)
[2021-11-07] MEDS: SODIUM BICARBONATE 650 MG TABLET PO SCH ×2 (08:23→23:07)
[2021-11-07] MEDS: MIDODRINE 2.5 MG TABLET PO SCH ×3 (08:23→23:08)
[2021-11-07] MEDS: MEGESTROL 400 MG/10 ML UDCUP PO SCH ×2 (08:23→23:09)
[2021-11-07] MEDS: LEVOTHYROXINE 100 MCG VIAL IV SCH (08:25)
[2021-11-07] MEDS: PANTOPRAZOLE 40 MG VIAL IV SCH (08:27)
[2021-11-07] MEDS: LEVOFLOXACIN INJ 500 MG/100 ML PREMIX IV SCH (08:33)
[2021-11-07] MEDS: ONDANSETRON 4 MG/2 ML VIAL IV PRN (10:20)
[2021-11-07] MEDS: SOTALOL 80 MG TABLET PO SCH ×2 (13:15→23:07)
[2021-11-07 14:27] LABS: Basophils % 0.1 % (0.0-0.8); Hematocrit 28.2 VOL% (35.7-47.0); Immature Granulocytes % 0.8 %; Immature Granulocytes Absolute 0.07 #; Lymphocytes # 1.3 10*3/uL (1.4-4.0); Lymphocytes % 15.4 % (21.3-54.2); Mean Corpuscular HGB Conc 31.9 GM/DL (32-36); Mean Platelet Volume 11.5 FL (9.6-12.0); Monocytes % 4.9 % (1.7-12.7); NRBC # 0.03 10*3/uL; Neutrophils % 78.8 % (38.7-73.9); Platelet Count 69 T/CUMM (130-400); White Blood Count 8.3 T/CUMM (4-12)
[2021-11-07 14:55] LABS: Folate > 24.00 NG/ML (5.38-24.0); Vitamin B12 908 PG/ML (211-911)
[2021-11-07 15:08] LABS: % Iron Saturation 57.9 % (18-50); Ferritin 211.4 ng/mL (8-252)
[2021-11-07 15:25] LABS: Sedimentation Rate-Westergren 1 MM/HR (0-20)
[2021-11-07 16:16] LABS: Atypical Lymphocytes Few; Lymphocytes 14 % (20-55); Reactive Lymphocytes Few; Segmented Neutrophils 80 % (50-85); Total Cells Counted 100
[2021-11-07 16:17] LABS: Hypochromasia Slight; Platelet Estimate Decreased; Schistocytes Slight
[2021-11-07] MEDS: COLLAGENASE OINT 30 GM TUBE TOP SCH (16:52)
[2021-11-07] MEDS: DESITIN 4OZ/NYSTATIN 15 GRAM MIXTURE PASTE TOP SCH ×2 (16:52→23:11)
[2021-11-07] MEDS: NYSTATIN CREAM 15 GM TUBE TOP SCH ×2 (16:52→17:07)
[2021-11-08] MEDS: NYSTATIN CREAM 15 GM TUBE TOP SCH ×4 (01:13→22:43)
[2021-11-08] MEDS: ALBUMIN 25% 25 GM/100 ML VIAL IV SCH ×3 (03:17→20:18)
[2021-11-08] MEDS: HYDROCORTISONE 100 MG VIAL IV SCH ×2 (03:25→18:11)
[2021-11-08 06:17] LABS: Basophils % 0.1 % (0.0-0.8); Hematocrit 27.3 VOL% (35.7-47.0); Hemoglobin 8.8 GM/DL (12.0-16.0); Immature Granulocytes % 0.8 %; Immature Granulocytes Absolute 0.06 #; Lymphocytes # 1.1 10*3/uL (1.4-4.0); Lymphocytes % 15.3 % (21.3-54.2); Mean Corpuscular HGB Conc 32.2 GM/DL (32-36); Mean Corpuscular Volume 90.1 FL (87-102); NRBC # 0.03 10*3/uL; Neutrophils % 79.8 % (38.7-73.9); Red Blood Count 3.03 MC/CUMM (3.8-5.5); Red Cell Distribution Width 21.8 % (9.3-17.3); White Blood Count 7.2 T/CUMM (4-12)
[2021-11-08 06:29] LABS: Calcium 8.7 MG/DL (8.5-10.1); Osmolality,Calculated 284.5 MOS/KG (273-304); Potassium 3.8 MMOL/L (3.5-5.1)
[2021-11-08 06:34] LABS: Albumin 4.3 G/DL (3.4-5.0); Bilirubin,Total 2.1 MG/DL (0.20-1.00); Calcium 8.9 MG/DL (8.5-10.1); Osmolality,Calculated 286.4 MOS/KG (273-304); Potassium 3.7 MMOL/L (3.5-5.1); Total Protein 5.8 G/DL (6.4-8.2)
[2021-11-08 06:39] LABS: Platelet Count 64 T/CUMM (130-400)
[2021-11-08 06:50] LABS: Hypochromasia 1+; Lymphocytes 18 % (20-55); Microcytosis 1+; Platelet Estimate Decreased; Segmented Neutrophils 79 % (50-85); Total Cells Counted 100
[2021-11-08] MEDS: PANTOPRAZOLE 40 MG VIAL IV SCH (09:46)
[2021-11-08] MEDS: DESITIN 4OZ/NYSTATIN 15 GRAM MIXTURE PASTE TOP SCH ×2 (09:50→22:43)
[2021-11-08] MEDS: levETIRAcetam 500 MG TABLET PO SCH ×2 (10:38→22:40)
[2021-11-08] MEDS: SOTALOL 80 MG TABLET PO SCH ×2 (10:38→22:40)
[2021-11-08] MEDS: FOLIC ACID 1 MG TABLET PO SCH (10:38)
[2021-11-08] MEDS: MEGESTROL 400 MG/10 ML UDCUP PO SCH ×2 (10:39→22:41)
[2021-11-08] MEDS: MIDODRINE 2.5 MG TABLET PO SCH ×3 (10:40→22:41)
[2021-11-08] MEDS: SODIUM BICARBONATE 650 MG TABLET PO SCH ×2 (10:41→22:41)
[2021-11-08 11:39] LABS: ABG HCO3 20.1 MMOL/L (20-26); ABG PH 7.426 (7.35-7.45); ABG PO2 65.2 MM HG (80-95); Allen Test Positive; Pt O2 Delivery Device Room Air
[2021-11-08 11:40] LABS: ABG Base Excess -5.1 MMOL/L (-2.5-2.5); ABG Oxygen Saturation 93.7 % (95-100)
[2021-11-08] MEDS: COLLAGENASE OINT 30 GM TUBE TOP SCH (16:45)
[2021-11-08] MEDS: MULTIVITAMIN INJ 10 ML in AMINO ACIDS/DEXT/LYTES 4.25-5% 2,000 ML IV SCH ×2 (20:10→22:42)
[2021-11-08] MEDS: LEVOTHYROXINE 100 MCG VIAL IV SCH (20:21)
[2021-11-09] MEDS: ALBUMIN 25% 25 GM/100 ML VIAL IV SCH ×3 (02:52→17:09)
[2021-11-09] MEDS: HYDROCORTISONE 100 MG VIAL IV SCH ×2 (03:00→15:50)
[2021-11-09 06:22] LABS: Calcium 9.2 MG/DL (8.5-10.1); Osmolality,Calculated 293.4 MOS/KG (273-304); Potassium 4.7 MMOL/L (3.5-5.1)
[2021-11-09 06:34] LABS: Alanine Aminotransferase < 6 U/L (13-56); Albumin 3.6 G/DL (3.4-5.0); Alkaline Phosphatase 175 U/L (45-117); Aspartate Amino Transferase 31 U/L (0-37); Blood Urea Nitrogen 46 MG/DL (7-18); Calcium 9.2 MG/DL (8.5-10.1); Carbon Dioxide 14 MMOL/L (21-32); Estimated Glom Filtration Rate 13 ML/MIN; Glucose 140 MG/DL (74-106); Potassium 4.9 MMOL/L (3.5-5.1); Sodium 136 MMOL/L (136-145); Total Protein 5.7 G/DL (6.4-8.2)
[2021-11-09] MEDS: LEVOTHYROXINE 100 MCG VIAL IV SCH (06:37)
[2021-11-09 07:40] LABS: Basophils % 0.2 % (0.0-0.8); Hematocrit 27.4 VOL% (35.7-47.0); Hemoglobin 8.9 GM/DL (12.0-16.0); Immature Granulocytes % 1.3 %; Immature Granulocytes Absolute 0.12 #; Lymphocytes # 1.3 10*3/uL (1.4-4.0); Lymphocytes % 14.1 % (21.3-54.2); Mean Corpuscular HGB Conc 32.5 GM/DL (32-36); Mean Corpuscular Volume 89.3 FL (87-102); Mean Platelet Volume 11.1 FL (9.6-12.0); Monocytes % 3.2 % (1.7-12.7); NRBC # 0.08 10*3/uL; Neutrophils % 81.2 % (38.7-73.9); Platelet Count 53 T/CUMM (130-400); Red Blood Count 3.07 MC/CUMM (3.8-5.5); Red Cell Distribution Width 22.2 % (9.3-17.3); White Blood Count 9.5 T/CUMM (4-12)
[2021-11-09 08:00] LABS: Hypochromasia 1+; Lymphocytes 14 % (20-55); Microcytosis 1+; Nucleated Red Blood Cells 2 (0-5); Platelet Estimate Decreased; Segmented Neutrophils 81 % (50-85); Total Cells Counted 100
[2021-11-09] MEDS: NYSTATIN CREAM 15 GM TUBE TOP SCH ×4 (09:30→22:12)
[2021-11-09] MEDS: LEVOFLOXACIN INJ 500 MG/100 ML PREMIX IV SCH (09:50)
[2021-11-09] MEDS: PANTOPRAZOLE 40 MG VIAL IV SCH (09:51)
[2021-11-09] MEDS: FOLIC ACID 1 MG TABLET PO SCH (09:56)
[2021-11-09] MEDS: levETIRAcetam 500 MG TABLET PO SCH ×2 (09:56→22:12)
[2021-11-09] MEDS: MEGESTROL 400 MG/10 ML UDCUP PO SCH ×2 (09:56→22:12)
[2021-11-09] MEDS: SOTALOL 80 MG TABLET PO SCH ×2 (09:56→22:12)
[2021-11-09] MEDS: SODIUM BICARBONATE 650 MG TABLET PO SCH ×2 (09:57→22:12)
[2021-11-09] MEDS: DESITIN 4OZ/NYSTATIN 15 GRAM MIXTURE PASTE TOP SCH ×2 (09:57→22:12)
[2021-11-09] MEDS: MIDODRINE 2.5 MG TABLET PO SCH ×3 (09:57→22:12)
[2021-11-09] MEDS: COLLAGENASE OINT 30 GM TUBE TOP SCH (09:57)
[2021-11-09] MEDS ORDERED: FERRIC GLUCONATE COMPLEX 125 MG in SODIUM CHLORIDE 0.9% 100 ML IV ONE (13:37)
[2021-11-09 14:12] LABS: INR 1.7
[2021-11-09] MEDS: MULTIVITAMIN INJ 10 ML in AMINO ACIDS/DEXT/LYTES 4.25-5% 2,000 ML IV SCH (17:09)
[2021-11-10] MEDS ORDERED: LORazepam 2 MG/1 ML VIAL ONE ×2 (01:18→14:41)
[2021-11-10] MEDS: LORazepam 2 MG/1 ML VIAL IV PRN ×4 (01:20→19:40)
[2021-11-10] MEDS: ALBUMIN 25% 25 GM/100 ML VIAL IV SCH (01:55)
[2021-11-10] MEDS: HYDROCORTISONE 100 MG VIAL IV SCH ×2 (03:45→15:18)
[2021-11-10 04:45] LABS: ABG Base Excess -8.2 MMOL/L (-2.5-2.5); ABG HCO3 17.7 MMOL/L (20-26); ABG Oxygen Saturation 99.6 % (95-100); ABG PCO2 50.2 MM HG (35-48); ABG TCO2 18.8 MMOL/L (23-27)
[2021-11-10 04:47] LABS: ABG PH 7.199 (7.35-7.45)
[2021-11-10] MEDS: SODIUM BICARB INJ 100 MEQ in STERILE WATER INJ 1,000 ML IV SCH ×2 (05:30→15:24)
[2021-11-10] MEDS: LEVOTHYROXINE 100 MCG VIAL IV SCH (06:13)
[2021-11-10 07:09] LABS: INR 1.9
[2021-11-10 07:15] LABS: Hematocrit 25.2 VOL% (35.7-47.0); Hemoglobin 7.7 GM/DL (12.0-16.0); Immature Granulocytes % 0.9 %; Lymphocytes # 1.1 10*3/uL (1.4-4.0); Lymphocytes % 9.6 % (21.3-54.2); Mean Corpuscular HGB Conc 30.6 GM/DL (32-36); Mean Corpuscular Volume 96.6 FL (87-102); Mean Platelet Volume 13.2 FL (9.6-12.0); Monocytes % 4.7 % (1.7-12.7); NRBC # 0.08 10*3/uL; Neutrophils % 84.8 % (38.7-73.9); Platelet Count 44 T/CUMM (130-400); Red Blood Count 2.61 MC/CUMM (3.8-5.5); Red Cell Distribution Width 23.5 % (9.3-17.3); White Blood Count 11.2 T/CUMM (4-12)
[2021-11-10 07:26] LABS: Albumin 4.4 G/DL (3.4-5.0); Bilirubin,Total 1.9 MG/DL (0.20-1.00); Calcium 8.6 MG/DL (8.5-10.1); Osmolality,Calculated 297.5 MOS/KG (273-304); Potassium 5.6 MMOL/L (3.5-5.1); Total Protein 5.7 G/DL (6.4-8.2)
[2021-11-10 07:37] LABS: Hypochromasia 1+; Lymphocytes 7 % (20-55); Microcytosis 1+; Platelet Estimate Decreased; Segmented Neutrophils 89 % (50-85); Total Cells Counted 100
[2021-11-10] MEDS: SOTALOL 80 MG TABLET PO SCH ×2 (09:49→20:28)
[2021-11-10] MEDS: MIDODRINE 2.5 MG TABLET PO SCH ×3 (10:10→20:47)
[2021-11-10] MEDS: SODIUM BICARBONATE 650 MG TABLET PO SCH ×2 (10:11→20:47)
[2021-11-10] MEDS: LACTULOSE 20 GM/30 ML UDCUP PO SCH ×4 (10:11→20:48)
[2021-11-10] MEDS: RIFAXIMIN 550 MG TABLET PO SCH ×2 (10:11→20:47)
[2021-11-10] MEDS: MEGESTROL 400 MG/10 ML UDCUP PO SCH ×2 (10:11→20:48)
[2021-11-10] MEDS: FOLIC ACID 1 MG TABLET PO SCH (10:11)
[2021-11-10] MEDS: PANTOPRAZOLE 40 MG VIAL IV SCH (10:12)
[2021-11-10 10:13] LABS: INR 1.9; PT Patient Result 20.1 SECS (10.5-12.0)
[2021-11-10 10:32] LABS: Alanine Aminotransferase < 6 U/L (13-56); Albumin 4.4 G/DL (3.4-5.0); Alkaline Phosphatase 126 U/L (45-117); Aspartate Amino Transferase 25 U/L (0-37); Bilirubin,Indirect 0.6 MG/DL (0.0-1.0); Total Protein 5.8 G/DL (6.4-8.2)
[2021-11-10] MEDS: NYSTATIN CREAM 15 GM TUBE TOP SCH ×3 (16:54→20:29)
[2021-11-10] MEDS: DESITIN 4OZ/NYSTATIN 15 GRAM MIXTURE PASTE TOP SCH ×2 (16:55→20:29)
[2021-11-10] MEDS: COLLAGENASE OINT 30 GM TUBE TOP SCH (16:55)
[2021-11-11] MEDS: LACTULOSE 20 GM/30 ML UDCUP PO SCH ×4 (02:02→13:53)
[2021-11-11] MEDS: SODIUM BICARB INJ 100 MEQ in STERILE WATER INJ 1,000 ML IV SCH ×3 (02:07→13:53)
[2021-11-11] MEDS: HYDROCORTISONE 100 MG VIAL IV SCH (02:37)
[2021-11-11 03:21] LABS: Calcium 9.1 MG/DL (8.5-10.1); Osmolality,Calculated 296.8 MOS/KG (273-304); Potassium 4.2 MMOL/L (3.5-5.1)
[2021-11-11 04:10] LABS: ABG Base Excess -1.8 MMOL/L (-2.5-2.5); ABG HCO3 22.9 MMOL/L (20-26); ABG Oxygen Saturation 99.2 % (95-100); ABG PH 7.472 (7.35-7.45); ABG TCO2 19.6 MMOL/L (23-27)
[2021-11-11] MEDS: LEVOTHYROXINE 100 MCG VIAL IV SCH (06:13)
[2021-11-11 06:40] LABS: Basophils % 0.1 % (0.0-0.8); Hematocrit 24.6 VOL% (35.7-47.0); Hemoglobin 8.1 GM/DL (12.0-16.0); Immature Granulocytes % 1.1 %; Lymphocytes # 1.5 10*3/uL (1.4-4.0); Mean Corpuscular HGB Conc 32.9 GM/DL (32-36); Mean Corpuscular Volume 91.1 FL (87-102); Monocytes % 3.9 % (1.7-12.7); NRBC # 0.18 10*3/uL; Neutrophils % 86.9 % (38.7-73.9); White Blood Count 18.5 T/CUMM (4-12)
[2021-11-11 06:48] LABS: INR 2.4; PT Patient Result 24.8 SECS (10.5-12.0)
[2021-11-11 06:53] LABS: Platelet Count 35 T/CUMM (130-400)
[2021-11-11 07:04] LABS: Lymphocytes 9 % (20-55); Nucleated Red Blood Cells 1 (0-5); Platelet Estimate Decreased; Segmented Neutrophils 88 % (50-85); Total Cells Counted 100
[2021-11-11 07:05] LABS: Hypochromasia Slight
[2021-11-11 07:13] LABS: Albumin 3.6 G/DL (3.4-5.0); Bilirubin,Total 1.8 MG/DL (0.20-1.00); Calcium 9.1 MG/DL (8.5-10.1); Osmolality,Calculated 296.8 MOS/KG (273-304); Potassium 4.2 MMOL/L (3.5-5.1); Total Protein 5.4 G/DL (6.4-8.2)
[2021-11-11] MEDS: SOTALOL 80 MG TABLET PO SCH (08:35)
[2021-11-11] MEDS: NYSTATIN CREAM 15 GM TUBE TOP SCH ×3 (08:44→21:38)
[2021-11-11] MEDS: COLLAGENASE OINT 30 GM TUBE TOP SCH (08:44)
[2021-11-11] MEDS: DESITIN 4OZ/NYSTATIN 15 GRAM MIXTURE PASTE TOP SCH ×2 (08:44→21:14)
[2021-11-11] MEDS: PANTOPRAZOLE 40 MG VIAL IV SCH (08:44)
[2021-11-11] MEDS: MEGESTROL 400 MG/10 ML UDCUP PO SCH (08:45)
[2021-11-11] MEDS: MIDODRINE 2.5 MG TABLET PO SCH (08:45)
[2021-11-11] MEDS: SODIUM BICARBONATE 650 MG TABLET PO SCH (08:45)
[2021-11-11] MEDS: RIFAXIMIN 550 MG TABLET PO SCH (08:45)
[2021-11-11] MEDS: FOLIC ACID 1 MG TABLET PO SCH (08:45)
[2021-11-11] MEDS ORDERED: cefTRIAXone 1,000 MG in SODIUM CHLORIDE 0.9% 100 ML IV SCH (09:00)
[2021-11-11] MEDS ORDERED: CEFEPIME 1,000 MG in SODIUM CHLORIDE 0.9% 100 ML IV SCH (09:00)
[2021-11-11] MEDS ORDERED: VANCOMYCIN INJ 1,000 MG in SODIUM CHLORIDE 0.9% 250 ML IV PRN (10:21)
[2021-11-11] MEDS ORDERED: POTASSIUM BICARB EFFERVESCENT 20 MEQ TAB.EFF PO PRN (11:00)
[2021-11-11] MEDS ORDERED: VANCOMYCIN INJ 1,250 MG in SODIUM CHLORIDE 0.9% 250 ML IV ONE (11:00)
[2021-11-11] MEDS ORDERED: MORPHINE 2 MG/1 ML SYRINGE IV PRN (13:52)
[2021-11-11] MEDS: LORazepam 2 MG/1 ML VIAL IV PRN ×2 (15:46→18:21)
[2021-11-11] MEDS: MORPHINE 2 MG/1 ML SYRINGE IV PRN ×2 (15:46→18:20)
[2021-11-12] MEDS: MORPHINE 2 MG/1 ML SYRINGE IV PRN (05:35)
[2021-11-12] MEDS: DESITIN 4OZ/NYSTATIN 15 GRAM MIXTURE PASTE TOP SCH (09:30)
[2021-11-12] MEDS: NYSTATIN CREAM 15 GM TUBE TOP SCH (09:30)
[2021-11-12] MEDS: COLLAGENASE OINT 30 GM TUBE TOP SCH (09:30)
[2021-11-12 11:06] LABS: Hb A 90.8 % (95.8-98.0); Hb A2 2.4 % (2.0-3.3); Hb F 6.8 % (0.0-0.9)
[2021-11-12 12:34] VITALS: BP 0/0
[2021-11-12 14:55] LABS: Hgb Elect Summary Review SEE COMMENTS
[2021-11-12 14:59] LABS: Hemoglobin A1 (Alkaline) 89.1 % (96.5-98.5); Hemoglobin A2 (Alkaline) 2.6 % (1.5-3.5)
[2021-11-12 15:00] LABS: Hemoglobin F (Alkaline) 8.3 %
== END 2021-11-12 14:32 | disposition expired | DRG 871 ==
LOC: N.ED 00:18 → N.EDINP 05:21 → SUATTDRO 05:21 → N.3E 13:55 → N.CC 09-24 06:51 → N.5E 09-25 16:41 → N.ICU 11-01 09:42 → N.3E 11-07 20:11 → N.ICU 11-10 08:44
PROVIDERS: ADMIT Internal Medicine; ATTEND Internal Medicine